=== PATIENT | female | born 1990 | race Two or more races ===

== ENCOUNTER → 2016-10-29 | Outpatient (CLI) | payer OTHER ==
--- NOTE | 2016-10-29 17:12 | REP ---
Clinical: Trauma. Technique: AP, lateral, bilateral oblique views 1st digit. Findings: The osseous structures and joint spaces are intact and normal. There is no evidence for acute fracture or dislocation. Surrounding soft tissues are unremarkable. No subcutaneous emphysema or radiodense foreign body. Impression: Normal examination. No acute fracture or dislocation. Signed by Tyshawn Saucedo MD 10/29/2016 05:03 P
== END ==
LOC: M WUC 16:50
PROVIDERS: ATTEND Physician Assistant
DX: S60.011A Contusion of right thumb without damage to nail, initial encounter (principal); X58.XXXA Exposure to other specified factors, initial encounter; Y92.89 Other specified places as the place of occurrence of the external cause; Y93.89 Activity, other specified; Y99.8 Other external cause status

== ENCOUNTER → 2018-03-10 | Outpatient (CLI) | payer OTHER ==
[2018-03-10 13:03] LABS: BASO % 0.2 % (0.0-1.0); EOS # 0.1 10^3/uL (0.0-0.50); EOS % 1.3 % (0.0-3.0); HEMATOCRIT 43.3 % (36.0-47.0); HEMOGLOBIN 13.7 g/dl (12.0-15.5); IMMATURE GRANULOCYTE % 0.4 % (0-3.0); LYMPH # 1.4 10^3/uL (1.5-6.5); LYMPH % 26.6 % (24.0-44.0); MEAN CORPUSCULAR HEMOGLOBIN 26.2 pg (27.0-33.0); MEAN CORPUSCULAR HGB CONC 31.6 g/dl (32.0-36.5); MONO # 0.5 10^3/uL (0.0-0.8); MONO % 8.4 % (0.0-5.0); NEUTROPHILS # 3.4 10^3/uL (1.8-7.7); NEUTROPHILS % 63.1 % (36.0-66.0); PLATELET COUNT, AUTOMATED 252 10^3/uL (150-450); RED BLOOD COUNT 5.22 10^6/uL (4.00-5.40); RED CELL DISTRIBUTION WIDTH 14.8 % (11.5-14.5); WHITE BLOOD COUNT 5.3 10^3/uL (4.0-10.0)
[2018-03-10 13:37] LABS: TOTAL 25(OH) VITAMIN D 10.1 NG/ML (30.0-100.0)
[2018-03-10 13:39] LABS: ALBUMIN 3.7 GM/DL (3.2-5.2); ALKALINE PHOSPHATASE 55 U/L (45-117); ALT/SGPT 35 U/L (12-78); ANION GAP 6 MEQ/L (8-16); AST/SGOT 22 U/L (7-37); BILIRUBIN,TOTAL 0.4 MG/DL (0.2-1.0); BLOOD UREA NITROGEN 11 MG/DL (7-18); CARBON DIOXIDE LEVEL 28 MEQ/L (21-32); CHLORIDE LEVEL 112 MEQ/L (98-107); CHOLESTEROL LEVEL 158 MG/DL (<200); CHOLESTEROL RISK RATIO 4.051 (<5); CREATININE FOR GFR 0.87 MG/DL (0.55-1.30); GLOMERULAR FILTRATION RATE > 60.0 (>60); GLUCOSE, FASTING 88 MG/DL (70-100); HDL CHOLESTEROL 39 MG/DL (>40); LDL CHOLESTEROL 100.6 MG/DL (<100); NON-HDL-C 119 MG/DL; POTASSIUM SERUM 4.1 MEQ/L (3.5-5.1); SODIUM LEVEL 146 MEQ/L (136-145); TOTAL PROTEIN 7.4 GM/DL (6.4-8.2); TRIGLYCERIDES LEVEL 92 MG/DL (<150)
[2018-03-10 14:11] LABS: ESTIMATED AVERAGE GLUCOSE 100 MG/DL (60-110); HEMOGLOBIN A1c 5.1 %
== END ==
LOC: M WUC 09:46
DX: Z13.228 Encounter for screening for other metabolic disorders (principal)
CPT/HCPCS: 84443

== ENCOUNTER → 2018-04-15 | Outpatient (CLI) | payer OTHER ==
[2018-04-17 14:14] LABS: TESTOSTERONE FREE (DIRECT) 1.5 pg/mL (0.0-4.2)
== END ==
LOC: M WUC 16:36
DX: E28.2 Polycystic ovarian syndrome (principal)
CPT/HCPCS: 83525

== ENCOUNTER → 2018-06-05 | Outpatient (REF) | payer OTHER ==
[2018-06-05 17:52] LABS: HCG, SERUM QUANTITATIVE 42235 MIU/ML
== END ==
LOC: M SFHCPLAZ 15:42
DX: Z32.00 Encounter for pregnancy test, result unknown (principal)
CPT/HCPCS: 84702

== ENCOUNTER → 2018-07-05 | Outpatient (CLI) | payer OTHER ==
[2018-07-05 17:23] LABS: BASO % 0.1 % (0.0-1.0); EOS # 0.1 10^3/uL (0.0-0.50); EOS % 0.8 % (0.0-3.0); HEMOGLOBIN 12.1 g/dl (12.0-15.5); IMMATURE GRANULOCYTE % 0.8 % (0-3.0); LYMPH # 1.5 10^3/uL (1.5-6.5); LYMPH % 20.2 % (24.0-44.0); MEAN CORPUSCULAR HEMOGLOBIN 27.1 pg (27.0-33.0); MEAN CORPUSCULAR HGB CONC 31.8 g/dl (32.0-36.5); MEAN CORPUSCULAR VOLUME 85.2 fl (80.0-96.0); MONO # 0.5 10^3/uL (0.0-0.8); NEUTROPHILS # 5.4 10^3/uL (1.8-7.7); NEUTROPHILS % 71.1 % (36.0-66.0); PLATELET COUNT, AUTOMATED 215 10^3/uL (150-450); RED BLOOD COUNT 4.46 10^6/uL (4.00-5.40); RED CELL DISTRIBUTION WIDTH 14.6 % (11.5-14.5); WHITE BLOOD COUNT 7.6 10^3/uL (4.0-10.0)
[2018-07-05 17:42] LABS: TOTAL PROTEIN,RANDOM URINE 9.8 MG/DL (0.0-12.0)
[2018-07-05 17:47] LABS: ALT/SGPT 26 U/L (12-78); AST/SGOT 12 U/L (7-37); BILIRUBIN,TOTAL 0.2 MG/DL (0.2-1.0); CREATININE FOR GFR 0.74 MG/DL (0.55-1.30); GLOMERULAR FILTRATION RATE > 60.0 (>60); GLUCOSE CHALLENGE TEST 1 HOUR 101 MG/DL (LESS THAN 140); LDH LACTATE DEHYDROGENASE 179 U/L (84-246); URIC ACID 4.2 MG/DL (2.6-6.0)
[2018-07-05 19:06] LABS: CHLAMYDIA DNA AMPLIFICATION NEGATIVE (NEGATIVE); GC DNA AMPLIFICATION NEGATIVE (NEGATIVE)
[2018-07-06 14:11] LABS: HBsAg Prenatal NEGATIVE (NEGATIVE); RUBELLA IgG QUALITATIVE IMMUNE (IMMUNE)
[2018-07-06 14:39] LABS: HEPATITIS C VIRUS ABY INDEX 0.1 INDEX (<0.8)
[2018-07-06 14:40] LABS: HIV 1&2 SCREEN CENTAUR NEGATIVE (NEGATIVE)
== END ==
LOC: M WUC 15:03
DX: Z34.81 Encounter for supervision of other normal pregnancy, first trimester (principal); Z3A.00 Weeks of gestation of pregnancy not specified
CPT/HCPCS: 84460

== ENCOUNTER → 2018-09-01 | Outpatient (CLI) | payer OTHER ==
--- NOTE | 2018-09-01 08:07 | REP ---
Clinical: Anatomical evaluation. Comparison: None . Findings: Examination demonstrates a single live intrauterine in cephalic presentation. motion is identified by technologist. Placenta is noted posterior and grade 1 without evidence for placenta previa or abruption. Amniotic fluid volume is normal. Cervix measures 5.0 cm in length and appears closed. No evidence for nuchal cord. Gestational age by LMP 20 weeks 5 days with ALYSON 01/14/2019 . Gestational age by current measurements 20 weeks 6 days with ALYSON 01/13/2019 . FHR equals 150 beats per minute. BPD 4.9 cm 20 weeks 5 days HC 18.1 cm 20 weeks 4 days AC 15.3 cm 20 weeks 3 days FL 3.6 cm 21 weeks 2 days HL 3.4 cm 21 weeks 3 days HC/AC ratio 1.19 Estimated weight 379 grams ( 50th percentile). Anatomical assessment demonstrates normal structures including cranium, choroid plexus, cavum, cerebellum/posterior fossa, diaphragm, stomach, cord insertion, bladder, and extremities. Limited evaluation of the facial features, lungs, heart/ventricular outflow tracts, three-vessel cord, kidneys, and spine due to maternal body habitus and lie. Impression: 1. Single live intrauterine in cephalic presentation demonstrating appropriate interval growth. 2. Anatomical limitations as scrubbed above may warrant reevaluation and follow-up. No gross abnormality identified. Electronically Signed by Tyshawn Saucedo MD 09/01/2018 07:59 A
== END ==
LOC: M RAD 07:00
PROVIDERS: ATTEND Advanced Practice Midwife
DX: Z34.82 Encounter for supervision of other normal pregnancy, second trimester (principal); Z36.89 Encounter for other specified antenatal screening; Z3A.20 20 weeks gestation of pregnancy

== ENCOUNTER → 2018-09-23 | Outpatient (CLI) | payer OTHER ==
--- NOTE | 2018-09-24 04:58 | REP ---
Clinical: Anatomical evaluation. Comparison: 09/01/2018 . Findings: Examination demonstrates a single live intrauterine in cephalic presentation. motion is identified by technologist. Placenta is noted posterior and grade grade 1 without evidence for placenta previa or abruption. Amniotic fluid volume is normal. Cervix measures 5.9 cm in length and appears closed. No evidence for nuchal cord. Gestational age by LMP 39-grof-9-day with ALYSON is 01/14/2019 . Gestational age by current measurements 24 weeks 4-day with ALYSON is 01/09/2019 . FHR equals 146 beats per minute. Estimated weight 745 grams ( 74th percentile). Anatomical assessment demonstrates normal structures including cranium, choroid plexus, cavum, cerebellum, facial features, lungs, left ventricular outflow tract, diaphragm, stomach, cord insertion/three-vessel cord, kidneys/bladder, spine, and extremities. Impression: Single live intrauterine in cephalic presentation demonstrating appropriate interval growth. Suboptimal evaluation of the four-chamber heart again noted. Remainder of the anatomical assessment is within normal limits. Electronically Signed by Tyshawn Saucedo MD 09/24/2018 04:49 A
== END ==
LOC: M RAD 14:52
PROVIDERS: ATTEND Specialist
DX: O99.212 Obesity complicating pregnancy, second trimester (principal); E66.9 Obesity, unspecified; Z3A.23 23 weeks gestation of pregnancy; Z36.2 Encounter for other antenatal screening follow-up

== ENCOUNTER → 2018-10-30 | Outpatient (CLI) | payer OTHER ==
--- NOTE | 2018-10-30 15:00 | REP ---
OB SONOGRAPHY: HISTORY: Supervision of followup anatomy. Four-chamber heart. FINDINGS: Scanning through the gravid uterus demonstrates a viable single intrauterine gestation in a cephalic lie. motion is observed and heart rate is recorded at 146 beats per minute. A posterior grade 1 placenta is seen without evidence of previa. Amniotic fluid is subjectively normal. Closed cervical length is measured 4.3 cm viewed transabdominally. No extrauterine abnormality is observed. There has been appropriate interval growth. No anomaly is seen. The following anatomic structures are identified and felt to be sonographically unremarkable: cranium, choroid plexus, cavum, cerebellum posterior fossa, lungs, four-chamber heart with left ventricular outflow tract view, diaphragm, left-sided stomach, abdominal wall cord insertion, three-vessel umbilical cord, kidneys and bladder, lower extremities. Biometry Chart: BPD 7.7 cm = 31 weeks 0 days HC 28.4 cm = 31 weeks 1 day AC 25.8 cm = 30 weeks 0 days FL 5.7 cm = 30 weeks 0 days HL 5.1 cm = 29 weeks 6 days HC/AC ratio normal 1.1. Cephalic index normal 0.76. Estimated weight 1521 grams, 3 pounds 5 ounces, 67th percentile for 29 weeks 1 day. Amniotic fluid index 24.1 cm. SD ratio normal 2.50. IMPRESSION: Viable single intrauterine gestation at 30 weeks 1 day by today's composite sonographic criteria. Expected gestational age estimate based on prior sonography is 29 weeks 2 days. ALYSON by prior sonography January 13, 2019. In conjunction with the prior study, anatomic survey is felt to be complete. Electronically Signed by Anton Guerrero MD 10/30/2018 03:34 P
== END ==
LOC: M RAD 07:30
PROVIDERS: ATTEND Specialist
DX: O99.212 Obesity complicating pregnancy, second trimester (principal); Z3A.30 30 weeks gestation of pregnancy

== ENCOUNTER → 2018-11-03 | Outpatient (CLI) | payer OTHER ==
[2018-11-03 19:46] LABS: BASO % 0.1 % (0.0-1.0); EOS # 0.1 10^3/uL (0.0-0.50); EOS % 0.6 % (0.0-3.0); HEMATOCRIT 34.3 % (36.0-47.0); HEMOGLOBIN 10.7 g/dl (12.0-15.5); LYMPH # 1.2 10^3/uL (1.5-6.5); LYMPH % 15.4 % (24.0-44.0); MEAN CORPUSCULAR HEMOGLOBIN 25.2 pg (27.0-33.0); MEAN CORPUSCULAR HGB CONC 31.2 g/dl (32.0-36.5); MEAN CORPUSCULAR VOLUME 80.9 fl (80.0-96.0); MONO # 0.7 10^3/uL (0.0-0.8); MONO % 8.2 % (0.0-5.0); NEUTROPHILS % 74.6 % (36.0-66.0); PLATELET COUNT, AUTOMATED 239 10^3/uL (150-450); RED BLOOD COUNT 4.24 10^6/uL (4.00-5.40); WHITE BLOOD COUNT 8.1 10^3/uL (4.0-10.0)
== END ==
LOC: M WUC 14:51
PROVIDERS: ATTEND Specialist
DX: O99.212 Obesity complicating pregnancy, second trimester (principal); Z3A.00 Weeks of gestation of pregnancy not specified

== ENCOUNTER → 2018-12-04 | Outpatient (CLI) | payer OTHER ==
[2018-12-04 13:40] LABS: BASO % 0.1 % (0.0-1.0); EOS % 0.4 % (0.0-3.0); HEMATOCRIT 37.4 % (36.0-47.0); HEMOGLOBIN 11.4 g/dl (12.0-15.5); LYMPH # 1.2 10^3/uL (1.5-6.5); MEAN CORPUSCULAR HEMOGLOBIN 24.1 pg (27.0-33.0); MEAN CORPUSCULAR HGB CONC 30.5 g/dl (32.0-36.5); MEAN CORPUSCULAR VOLUME 78.9 fl (80.0-96.0); MONO # 0.8 10^3/uL (0.0-0.8); MONO % 9.7 % (0.0-5.0); NEUTROPHILS # 5.6 10^3/uL (1.8-7.7); NEUTROPHILS % 72.9 % (36.0-66.0); PLATELET COUNT, AUTOMATED 235 10^3/uL (150-450); RED BLOOD COUNT 4.74 10^6/uL (4.00-5.40); WHITE BLOOD COUNT 7.7 10^3/uL (4.0-10.0)
[2018-12-04 13:41] LABS: ALT/SGPT 15 U/L (12-78); BILIRUBIN,TOTAL 0.4 MG/DL (0.2-1.0); CREATININE FOR GFR 0.53 MG/DL (0.55-1.30); GLOMERULAR FILTRATION RATE > 60.0 (>60); LDH LACTATE DEHYDROGENASE 155 U/L (84-246); URIC ACID 3.8 MG/DL (2.6-6.0)
[2018-12-04 14:33] LABS: CREATININE,RANDOM URINE 53.9 MG/DL; TOTAL PROTEIN,RANDOM URINE 9.1 MG/DL (0.0-12.0)
== END ==
LOC: M SMT 09:23
PROVIDERS: ATTEND Advanced Practice Midwife
DX: O99.213 Obesity complicating pregnancy, third trimester (principal); X58.XXXA Exposure to other specified factors, initial encounter; R03.0 Elevated blood-pressure reading, without diagnosis of hypertension

== ENCOUNTER → 2018-12-09 | Outpatient (CLI) | payer OTHER ==
--- NOTE | 2018-12-09 09:21 | REP ---
Clinical: Hypertension. well-being. Comparison: 10/30/2018. Findings: Examination demonstrates a single live intrauterine in cephalic presentation. motion is identified by technologist. Placenta is noted posterior and grade grade 1 without evidence for placenta previa or abruption. Amniotic fluid volume is normal. Cervix measures 4.6 cm in length and appears closed. No evidence for nuchal cord. Gestational age by LMP 34 weeks 6 days with ALYSON 01/13/2019 . Gestational age by current measurements 36 weeks 2 days with ALYSON 01/04/2019 . FHR equals 126 beats per minute. BPD 9.5 cm 39 weeks 0 days (greater than 95th percentile) HC 32.8 cm 37 weeks 2 days (90th percentile) AC 33.8 cm 37 weeks 5 days (92nd percentile) FL 6.7 cm 34 weeks 3 days HL 5.7 cm 33 weeks 1 day HC/AC ratio 0.97 Estimated weight 3095 grams ( 88th percentile based on age by LMP ). Amniotic fluid index: 19.1 cm (7.9 - 24.9) Umbilical cord SD ratio: 2.60 (2.00 - 3.00). Impression: 1. Single live advanced gestation in cephalic presentation. 2. Estimated weight within normal range. Biometrical measurements as described above. Electronically Signed by Tyshawn Saucedo MD 12/09/2018 09:13 A
== END ==
LOC: M RAD 07:05
PROVIDERS: ATTEND Advanced Practice Midwife
DX: O13.3 Gestational [pregnancy-induced] hypertension without significant proteinuria, third trimester (principal); Z3A.36 36 weeks gestation of pregnancy

== ENCOUNTER → 2018-12-31 | Outpatient (REF) | payer OTHER | LOC: M LAB REF 17:09 | PROVIDERS: ATTEND Specialist | DX: O09.213 Supervision of pregnancy with history of pre-term labor, third trimester (principal) ==

== ENCOUNTER 2019-01-12 05:34 | Inpatient (IN) | payer OTHER ==
[~2019-01-12] VITALS: Ht 157.5 cm; Wt 133.3 kg
[2019-01-12] MEDS ORDERED: BICITRA 30ML SOLN UDC PO ONE (06:00)
[2019-01-12] MEDS ORDERED: LR 800 ML IV ONE (06:00)
[2019-01-12 06:45] LABS: HEMATOCRIT 37.1 % (36.0-47.0); HEMOGLOBIN 11.6 g/dl (12.0-15.5); MEAN CORPUSCULAR HGB CONC 31.3 g/dl (32.0-36.5); MEAN CORPUSCULAR VOLUME 76.8 fl (80.0-96.0); PLATELET COUNT, AUTOMATED 283 10^3/uL (150-450); RED BLOOD COUNT 4.83 10^6/uL (4.00-5.40); WHITE BLOOD COUNT 8.3 10^3/uL (4.0-10.0)
[2019-01-12] MEDS ORDERED: LR 1,000 ML IV SCH (07:00)
[2019-01-12] MEDS ORDERED: OXYC1TAB23 PO (07:19)
[2019-01-12] MEDS ORDERED: IBUP-1022 PO (07:20)
[2019-01-12] MEDS ORDERED: NALBUPHINE HCL 10 MG/ML AMP (J2300) IV PRN ×2 (07:41→09:30)
[2019-01-12] MEDS ORDERED: NALOXONE INJ 0.4 MG/1 ML VIAL (J2310) IV PRN ×2 (07:41)
[2019-01-12] MEDS ORDERED: METOCLOPRAMIDE INJ 10MG/2ML VIAL (J2765) IV PRN (07:41)
[2019-01-12] MEDS ORDERED: ONDANSETRON 4MG/2ML VIAL (J2405) IV PRN ×3 (07:41→09:30)
[2019-01-12] MEDS ORDERED: diphenhydrAMINE INJ 50MG/ML VIAL (J1200) IV PRN ×2 (07:41→09:30)
[2019-01-12] MEDS ORDERED: MORPHINE PRES-FREE INJ 10 MG/10 ML VIAL (J2274) As Ordered ONE (07:51)
[2019-01-12] MEDS ORDERED: OXYTOCIN INJ 10 UNITS/ML VIAL (J2590) As Ordered ONE (07:51)
[2019-01-12] MEDS ORDERED: PHENYLephrine HCL 500 MCG/5 ML (100MCG/ML) SYRINGE (J2370) As Ordered ONE (07:51)
[2019-01-12] MEDS ORDERED: ONDANSETRON 4MG/2ML VIAL (J2405) As Ordered ONE (07:51)
[2019-01-12] MEDS ORDERED: OXYTOCIN DRIP 30 UNITS in APPROPRIATE DILUENT 1 EA IV SCH (08:40)
[2019-01-12] MEDS ORDERED: PROMETHAZINE 25 MG TAB PO PRN (08:45)
[2019-01-12] MEDS ORDERED: MEASLES,MUMPS,RUBELLA VACCINE INJ (MMR-II) (90707) SC SCH (08:45)
[2019-01-12] MEDS ORDERED: RHOGAM 300 MCG (1500 IU) INJ (J2790) IM SCH (08:45)
[2019-01-12] MEDS ORDERED: PERCOCET 5MG/325MG TAB PO PRN ×2 (08:45)
[2019-01-12] MEDS: PRENATAL VITAMINS CHEWABLE TABLET PO SCH (09:00)
[2019-01-12] MEDS: DOCUSATE SODIUM 100 MG CAP PO SCH (09:00)
[2019-01-12] MEDS ORDERED: OXYTOCIN 30 UNITS IN 0.9% NaCl 500ML IV BAG (J2590) As Ordered ONE (09:26)
[2019-01-12] MEDS ORDERED: MEPERIDINE INJ 25 MG/ML VIAL (J2175) IV PRN (09:30)
[2019-01-12] MEDS ORDERED: KETOROLAC 30 MG/ML VIAL (J1885) IV PRN (09:30)
[2019-01-12] MEDS ORDERED: fentaNYL 100 MCG/2 ML INJECTION (J3010) IV PRN (09:30)
--- NOTE | 2019-01-12 09:32 | RO ---
DATE OF PROCEDURE: 01/12/2019 PREPROCEDURE DIAGNOSIS: 37 and 4, chronic hypertension, prior section times one. POSTPROCEDURE DIAGNOSIS: 37 and 4, chronic hypertension, prior section times one. PROCEDURE: Repeat low transverse section. SURGEON: Dr. Kalyan Walker CONTRACTS LAW PROFESSOR: Dr. Justo Shea ANESTHESIA: Spinal. FINDINGS: 4100 gram, 9 pound 1 ounce, male , Apgars 8 and 9, nuchal cord times one, polyhydramnios present. Normal uterus, fallopian tubes and ovaries. Omental adhesions to the anterior abdominal wall. DESCRIPTION OF PROCEDURE: The patient was taken to the operating room where spinal anesthesia was induced. She was prepped and draped in sterile fashion in the supine position. A Ridley catheter was placed. A Pfannenstiel skin incision was made with the scalpel and carried through to the fascia. The fascia was nicked and extended. The fascia was dissected off the rectus muscles. The peritoneal cavity was entered. A bladder flap was created. A curvilinear incision was made in the lower uterine segment until clear fluid was noted. This was extended manually. The infant was delivered from the vertex position with a single use of the vacuum extractor. Nuchal cord times one was reduced. The shoulders delivered with ease. The cord was doubly clamped and cut. The was handed off to the awaiting nurses. The placenta was expressed. The uterus was exteriorized and cleared of clots and debris. The uterine incision was closed with #0 Vicryl in a running locked fashion. A second imbricating layer of #0 Vicryl was placed. The uterus was placed back in the abdominal cavity. Omental adhesions to the anterior abdominal wall were taken down sharply. The peritoneum was closed with #2-0 Vicryl in a running fashion. The fascia was closed with #0 Vicryl in a running fashion. The deep layer was closed with #2-0 chromic. The skin was closed with #4-0 Monocryl subcuticular sutures. Sponge, needle and instrument counts were correct. Dr. Justo Shea assisted in all aspects of the procedure from beginning to end. He helped create each layer of the incision, including the hysterotomy, and he subsequently helped with expulsion of the fetus and closure of all layers.
[2019-01-12 11:20] VITALS: BP 121/71
[2019-01-12] MEDS ORDERED: KETOROLAC 30 MG/ML VIAL (J1885) IV SCH (11:30)
[2019-01-12 11:50] VITALS: BP 122/75
[2019-01-12] MEDS: KETOROLAC 30 MG/ML VIAL (J1885) IV SCH ×2 (12:11→19:10)
[2019-01-12 12:50] VITALS: BP 124/61
[2019-01-12 13:50] VITALS: BP 112/61
[2019-01-12 17:59] VITALS: BP 119/72
[2019-01-12 22:00] VITALS: BP 115/55
[2019-01-13] MEDS: KETOROLAC 30 MG/ML VIAL (J1885) IV SCH ×2 (00:40→05:49)
[2019-01-13] MEDS: DOCUSATE SODIUM 100 MG CAP PO SCH ×3 (00:40→22:12)
[2019-01-13 02:00] VITALS: BP 111/53
[2019-01-13 06:00] VITALS: BP 113/55
[2019-01-13 06:08] LABS: HEMATOCRIT 30.8 % (36.0-47.0); MEAN CORPUSCULAR HEMOGLOBIN 23.6 pg (27.0-33.0); MEAN CORPUSCULAR HGB CONC 30.8 g/dl (32.0-36.5); MEAN CORPUSCULAR VOLUME 76.6 fl (80.0-96.0); PLATELET COUNT, AUTOMATED 224 10^3/uL (150-450); RED BLOOD COUNT 4.02 10^6/uL (4.00-5.40); WHITE BLOOD COUNT 9.1 10^3/uL (4.0-10.0)
[2019-01-13 06:18] LABS: HEMOGLOBIN 9.5 g/dl (12.0-15.5)
--- NOTE | 2019-01-13 07:48 | NUR ---
Postoperative Day 1 Status post repeat low transverse section, uncomplicated. Subjective Pain is well controlled. Lochia is decreasing and minimal. Voiding spontaneously. Tolerating a regular diet. Ambulating without any assistance. Denies any subjective fever, chills, nausea, vomiting, headache, visual changes, shortness of breath, chest pain. Objective Vitals: Normotensive, normal heart rate, afebrile, adequate urine output. Heart: regular, rate, and rhythm. no murmurs/gallops/rubs Lungs: clear to auscultation bilaterally, no wheezes/crackles/rales/ronchi Abd: soft, nontender, nondistended, uterine fundus is 2cm below umbilicus and firm Incision: clean, dry, intact Ext: no significant edema, nontender, negative Gricelda's bilaterally. Assessment/Plan: Postoperative day 1 status post repeat low transverse section. Recovering well. Hemodynamically stable, afebrile, good pain control. -Routine care -Discharge to home tomorrow -Routine infectious, fever, pain, and bleeding precautions reviewed -Incision/wound care precautions reviewed. Daysi DriscollO., F.A.C.O.G.
[2019-01-13] MEDS: PRENATAL VITAMINS CHEWABLE TABLET PO SCH (09:06)
[2019-01-13 10:07] VITALS: BP 119/73
[2019-01-13 14:00] VITALS: BP 125/72
[2019-01-13] MEDS: IBUPROFEN 800 MG TAB PO SCH ×2 (14:18→22:12)
[2019-01-13 18:00] VITALS: BP 120/68
[2019-01-13 22:13] VITALS: BP 116/57
[2019-01-14 02:12] VITALS: BP 117/68
[2019-01-14] MEDS: IBUPROFEN 800 MG TAB PO SCH (05:52)
[2019-01-14 06:27] VITALS: BP 121/78
--- NOTE | 2019-01-14 07:35 | DSES ---
DATE OF ADMISSION: 01/12/2019 DATE OF DISCHARGE: 01/14/2019 DISCHARGE DIAGNOSES: Repeat section at term. Chronic hypertension, stable condition postop day 2. SURGEON: Dr. Kalyan Walker MOLDING AND TRIM INSTALLER: Dr. Justo Shea HISTORY: Eloise is a 28-year-old 2, para 1-1-0-2 now who was admitted for planned repeat section at 37-4/7 weeks gestation due to chronic hypertension and prior section. Her surgery was uncomplicated. She delivered a live male weighing 4100 grams, 9 pounds 1 ounce, scores of 8 and 9. Estimated blood loss 600 mL. Postoperative course has been uncomplicated. She has been out of bed for self care, jose care and infant care. Her pain has been well managed with p.o. pain medications. She is voiding without difficulty, tolerating p.o. fluids and a regular diet and passing flatus. OBJECTIVE: Temperature 98, pulse 101, respirations 16, blood pressure is 121/78. 01/12/2019 CBC hemoglobin 11.6, hematocrit 37.1, platelets 283. Postoperative CBC on 01/13/2019 hemoglobin 9.5, hematocrit 30.8, platelets 224. Breasts: Soft, nontender. Abdomen: Fundus firm at umbilicus. Incision dressing is intact. There is no drainage noted. Perineum is intact. Lochia rubra scant. PLAN: Discharge the patient home today. She is to follow up at [facility] for a two week incision check and an eight week visit. Medications for pain have been E-prescribed by Dr. Kalyan Walker to the patient's pharmacy; ibuprofen 800 mg p.o. q.8 h p.r.n. for pain as well as Percocet 5/325 1-2 tablets p.o. q.6 h for pain p.r.n. I did review discharge instructions with the patient that include breast care, incision care, jose care, pelvic rest, activity and lifting restrictions, access to care and other danger signs in which to report to her provider. The patient has had all her questions answered and she desires to be discharged home today.
[2019-01-14] MEDS: DOCUSATE SODIUM 100 MG CAP PO SCH (08:39)
[2019-01-14] MEDS: PRENATAL VITAMINS CHEWABLE TABLET PO SCH (08:39)
== END 2019-01-14 12:40 | disposition home or self-care (01) | DRG 540 ==
LOC: M LDI 05:34 → M OBS 11:14
PROVIDERS: ADMIT Specialist; ATTEND Specialist
PROC: 10D00Z1 Extraction of Products of Conception, Low, Open Approach (ICD-10-PCS; principal; 2019-01-12 07:30)
DX: O10.02 Pre-existing essential hypertension complicating childbirth (principal); O40.3XX0 Polyhydramnios, third trimester, not applicable or unspecified; O34.211 Maternal care for low transverse scar from previous cesarean delivery; Z3A.37 37 weeks gestation of pregnancy; Z37.0 Single live birth; O69.81X0 Labor and delivery complicated by cord around neck, without compression, not applicable or unspecified

== ENCOUNTER → 2020-09-21 | Outpatient (CLI) | payer OTHER ==
[~2020-09-21] MED LIST: IBUP-1022 PO; OXYC1TAB23 PO
[2020-09-21 19:25] LABS: BASO % 0.2 % (0.0-1.0); EOS # 0.1 10^3/uL (0.0-0.5); EOS % 0.9 % (0.0-3.0); HEMATOCRIT 38.1 % (36.0-47.0); HEMOGLOBIN 11.5 g/dl (12.0-15.5); MEAN CORPUSCULAR HEMOGLOBIN 24.6 pg (27.0-33.0); MEAN CORPUSCULAR HGB CONC 30.2 g/dl (32.0-36.5); MEAN CORPUSCULAR VOLUME 81.4 fl (80.0-96.0); MONO # 0.7 10^3/uL (0.0-0.8); MONO % 7.3 % (2.0-8.0); NEUTROPHILS # 6.9 10^3/uL (1.5-8.5); NEUTROPHILS % 70.6 % (36.0-66.0); PLATELET COUNT, AUTOMATED 212 10^3/uL (150-450); RED BLOOD COUNT 4.68 10^6/uL (4.00-5.40); WHITE BLOOD COUNT 9.8 10^3/uL (4.0-10.0)
[2020-09-21 20:09] LABS: AMORPHOUS SEDIMENT SMALL (NEGATIVE); APPEARANCE, URINE HAZY (CLEAR); BACTERIA, URINE AUTO 1+ (NEGATIVE); BILIRUBIN, URINE AUTO NEGATIVE (NEGATIVE); BLOOD, URINE BLOOD NEGATIVE (NEGATIVE); COLOR, URINE YELLOW (YELLOW); GLUCOSE, URINE (UA) AUTO NEGATIVE (NEGATIVE); KETONE, URINE AUTO 1+ mg/dL (NEGATIVE); LEUKOCYTE ESTERASE, URINE AUTO NEGATIVE (NEGATIVE); MUCUS, URINE SMALL (NEGATIVE); NITRITE, URINE AUTO NEGATIVE (NEGATIVE); PROTEIN, URINE AUTO NEGATIVE (NEGATIVE); RBC, URINE AUTO 1 /HPF (0-3); SPECIFIC GRAVITY URINE AUTO 1.024 (1.002-1.035); SQUAMOUS EPITHELIAL CELL UR AU 6 /HPF (0-6); WBC, URINE AUTO 1 /HPF (0-3)
[2020-09-21 20:42] LABS: HEPATITIS B SURFACE ANTIGEN NEGATIVE (NEGATIVE); HEPATITIS C VIRUS ABY INDEX 0.1 INDEX (<0.8); HIV 1&2 SCREEN CENTAUR NEGATIVE (NEGATIVE)
[2020-09-21 21:37] LABS: CHLAMYDIA DNA AMPLIFICATION NEGATIVE (NEGATIVE); GC DNA AMPLIFICATION NEGATIVE (NEGATIVE)
== END ==
LOC: M LAB 17:01
PROVIDERS: ATTEND Specialist
DX: Z34.81 Encounter for supervision of other normal pregnancy, first trimester (principal); Z3A.00 Weeks of gestation of pregnancy not specified

== ENCOUNTER → 2020-09-22 | Outpatient (REF) | payer OTHER ==
[2020-09-22 18:04] LABS: TOTAL PROTEIN,RANDOM URINE 5.8 MG/DL (0.0-12.0)
== END ==
LOC: M SFHCPLAZ 16:44
PROVIDERS: ATTEND Advanced Practice Midwife
DX: O34.211 Maternal care for low transverse scar from previous cesarean delivery (principal); O99.212 Obesity complicating pregnancy, second trimester; Z87.59 Personal history of other complications of pregnancy, childbirth and the puerperium

== ENCOUNTER → 2020-09-29 | Outpatient (CLI) | payer OTHER ==
[2020-09-29 14:52] LABS: ALT/SGPT 17 U/L (12-78); BILIRUBIN,TOTAL 0.3 MG/DL (0.2-1.0); CREATININE FOR GFR 0.58 MG/DL (0.55-1.30); GLOMERULAR FILTRATION RATE > 60.0 (>60); GLUCOSE CHALLENGE TEST 1 HOUR 107 MG/DL (LESS THAN 140); LDH LACTATE DEHYDROGENASE 135 U/L (84-246); URIC ACID 3.6 MG/DL (2.6-6.0)
== END ==
LOC: M LAB 12:29
PROVIDERS: ATTEND Advanced Practice Midwife
DX: O34.211 Maternal care for low transverse scar from previous cesarean delivery (principal); O99.212 Obesity complicating pregnancy, second trimester; Z87.59 Personal history of other complications of pregnancy, childbirth and the puerperium; Z3A.00 Weeks of gestation of pregnancy not specified

== ENCOUNTER → 2020-10-24 | Outpatient (CLI) | payer OTHER ==
--- NOTE | 2020-10-24 19:22 | REP ---
INDICATION: ANATOMY. Maternal care due to low transverse uterine scar from previous delivery. For anatomy. COMPARISON: None. TECHNIQUE: Transabdominal obstetric sonography. FINDINGS: Scanning through the gravid uterus demonstrates a viable single intrauterine gestation in cephalic lie. motion is observed and heart rate is recorded at 163 beats per minute. A anterior placenta is seen, grade 0, without evidence of placenta previa. Closed cervical length is measured at 4.6 cm transabdominally. No extrauterine abnormality is observed. Amniotic fluid is subjectively normal. Exam quality is inhibited by patient body habitus.. No abnormality is observed. The following anatomic structures are identified and felt to be unremarkable: diaphragm, left-sided stomach, right and left kidney, urinary bladder, spine, upper and lower extremities, three-vessel cord. The following anatomic structures are less than optimally seen. cranium and intracranial anatomy. Four-chamber heart with left and right ventricular outflow tract views, and abdominal wall cord insertion.. Biometry chart: BPD 5.4 cm, 22 weeks 2 days Head circumference 20.4 cm, 22 weeks 4 days Abdominal circumference 19.6 cm, 24 weeks 2 days Femur length 4.2 cm, 23 weeks 5 days Humeral length 3.7 cm, 22 weeks 5 days HC AC ratio normal 1.04 Cephalic index normal 0.72 Estimated weight 627 g, 1 lb 6 oz, 67th percentile for 21 weeks 3 days IMPRESSION: Viable single intrauterine gestation at 23 weeks 1 days by today's composite sonographic criteria. ALYSON by today's sonography February 19, 2021. Expected gestational age estimate based on LMP 21 weeks 3 days, ALYSON by LMP March 03, 2021. Exam quality is limited due to patient body habitus.. anatomic survey is quite limited. <Electronically signed by Micah Guerrero > 10/24/20 [id number]
== END ==
LOC: M RAD 16:07
PROVIDERS: ATTEND Advanced Practice Midwife
DX: Z36.9 Encounter for antenatal screening, unspecified (principal); Z3A.23 23 weeks gestation of pregnancy

== ENCOUNTER → 2020-11-10 | Outpatient (CLI) | payer OTHER ==
--- NOTE | 2020-11-10 08:20 | REP ---
INDICATION: F/U ANATOMY COMPARISON: 10/24/2020 TECHNIQUE: Transabdominal obstetrical ultrasound with color Doppler evaluation. FINDINGS: Examination demonstrates a single live intrauterine in variable presentation. motion is identified by technologist. Placenta is noted anterior and clear grade 0 without evidence for placenta previa or abruption. Amniotic fluid volume is normal. Cervix measures 3.5 cm in length and appears closed.. Gestational age by LMP and 1st U/S 23 weeks 6 days with ALYSON 03/03/2021. Gestational age by current measurements 25 weeks 3 days with ALYSON 02/20/2021. FHR equals 155 beats per minute. Estimated weight 819 grams (greater than 97thpercentile based on age by 1st ultrasound). Anatomical assessment demonstrates normal structures including cranium, cerebral ventricles, choroid plexus, posterior fossa/cerebellum, facial features, heart/ventricular outflow tracts, stomach/abdominal wall, bladder and 3 vessel cord. IMPRESSION: 1. Single live intrauterine in variable presentation demonstrating greater than expected estimated weight. Correlation is required. 2. In conjunction with prior examination anatomical assessment is complete and normal. <Electronically signed by Tyshawn Saucedo > 11/10/20 [id number]
== END ==
LOC: M WHC 06:49
PROVIDERS: ATTEND Advanced Practice Midwife
DX: O34.211 Maternal care for low transverse scar from previous cesarean delivery (principal)

== ENCOUNTER → 2020-11-24 | Outpatient (REF) | payer OTHER | LOC: M SFHCWAGY 16:53 | PROVIDERS: ATTEND Advanced Practice Midwife | DX: O34.211 Maternal care for low transverse scar from previous cesarean delivery (principal); Z3A.00 Weeks of gestation of pregnancy not specified ==

== ENCOUNTER → 2020-12-08 | Outpatient (REF) | payer OTHER ==
[2020-12-08 18:01] LABS: HEMATOCRIT 34.8 % (36.0-47.0); HEMOGLOBIN 10.6 g/dl (12.0-15.5); MEAN CORPUSCULAR HEMOGLOBIN 24.1 pg (27.0-33.0); MEAN CORPUSCULAR HGB CONC 30.5 g/dl (32.0-36.5); MEAN CORPUSCULAR VOLUME 79.1 fl (80.0-96.0); PLATELET COUNT, AUTOMATED 236 10^3/uL (150-450); WHITE BLOOD COUNT 7.9 10^3/uL (4.0-10.0)
== END ==
LOC: M SFHCWAGY 17:06
PROVIDERS: ATTEND Advanced Practice Midwife
DX: O99.212 Obesity complicating pregnancy, second trimester (principal); Z3A.00 Weeks of gestation of pregnancy not specified

== ENCOUNTER → 2020-12-11 | Outpatient (REF) | payer OTHER | LOC: M SFHCWAGY 17:44 | PROVIDERS: ATTEND Advanced Practice Midwife | DX: O99.212 Obesity complicating pregnancy, second trimester (principal); E66.9 Obesity, unspecified; Z3A.00 Weeks of gestation of pregnancy not specified ==

== ENCOUNTER → 2020-12-29 | Outpatient (CLI) | payer OTHER ==
--- NOTE | 2020-12-29 08:43 | REP ---
INDICATION: BPP/GROWTH COMPARISON: 11/10/2020 TECHNIQUE: Transabdominal obstetrical ultrasound with color Doppler evaluation. FINDINGS: Examination demonstrates a single live intrauterine in breech presentation. motion is identified by technologist. Placenta is noted anterior and grade 1 without evidence for placenta previa or abruption. Amniotic fluid volume is normal. Cervix measures 4.1 cm in length and appears closed.. Gestational age by LMP and 1st U/S 30 weeks 6 days with ALYSON 03/03/2021. Gestational age by current measurements 33 weeks 4 days with ALYSON 02/12/2021. FHR equals 146 beats per minute. BPD: 8.1 cm at 32 weeks 5 days HC: 31.5 cm at 35 weeks 3 days AC: 29.8 cm at 33 weeks 5 days FL: 6.4 cm at 33 weeks 0 days HL: 5.7 cm at 32 weeks 6 days HC/AC: 1.06 Estimated weight 2234 grams (greater than 97th percentile based on age by 1st ultrasound; 52nd percentile based on age by current measurements) JIM: 9.9 cm (8.8-23.8) Biophysical profile score: 8/8. Umbilical artery SD ratio: 3.14 (1.91-3.99) IMPRESSION: Single live intrauterine in breech presentation. Greater than expected interval growth noted as above. Amniotic fluid index and biophysical profile score normal. <Electronically signed by Tyshawn Saucedo > 12/29/20 [id number]
== END ==
LOC: M RAD 07:27
PROVIDERS: ATTEND Obstetrics & Gynecology
DX: O34.211 Maternal care for low transverse scar from previous cesarean delivery (principal)

== ENCOUNTER → 2021-01-12 | Outpatient (CLI) | payer OTHER ==
--- NOTE | 2021-01-14 09:09 | REP ---
INDICATION: PREG, HTN COMPLICATIONS COMPARISON: 12/29/2020 TECHNIQUE: Transabdominal obstetrical ultrasound with color Doppler evaluation. FINDINGS: Examination demonstrates a single live intrauterine in cephalic presentation. motion is identified by technologist. Placenta is noted anterior and grade 1 without evidence for placenta previa or abruption. Amniotic fluid volume is normal. Cervix measures 3.2 cm in length and appears closed.. Selected gestational age: 35 weeks 4 days with ALYSON 02/12/2021. FHR equals 142 beats per minute. JIM: 13.5 cm (7.8-24.9) Biophysical profile score: 8/8 Umbilical artery SD ratio: 2.53 (1.66-3.55) IMPRESSION: Single live advanced gestation in cephalic presentation demonstrating appropriate amniotic fluid index and biophysical profile score. <Electronically signed by Tyshawn Saucedo > 01/14/21 0905
== END ==
LOC: M RAD 17:06
PROVIDERS: ATTEND Specialist
DX: O16.3 Unspecified maternal hypertension, third trimester (principal)

== ENCOUNTER → 2021-01-22 | Outpatient (CLI) | payer OTHER ==
--- NOTE | 2021-01-22 18:00 | REP ---
INDICATION: BPP. COMPARISON: Comparison study January 12, 2021.. TECHNIQUE: Transabdominal obstetric sonography. FINDINGS: Scanning through the gravid uterus demonstrates a single living intrauterine gestation in a cephalic lie. The placenta is anterior grade 2 without evidence of previa. Closed cervical length is measured at 3.0 cm. heart rate is recorded at 143 beats per minute. Amniotic fluid is subjectively normal. JIM is normal at 13.2 cm. Biophysical profile score is 8 out of a possible 8. SD ratio in the umbilical cord artery by Doppler is normal at 2.45. Biometry chart: BPD 8.8 cm, 35 weeks 4 days Head circumference 32.5 cm, 36 weeks 5 days Abdominal circumference 34.87 cm, 38 weeks 4 days Femur length 6.8 cm, 35 weeks 0 days Humeral length 6.1 cm, 35 weeks 4 days HC AC ratio normal 0.94 Cephalic index normal 0.75 Estimated weight 3145 g, 6 lb 14 oz, greater than 90th percentile for 34 weeks 2 days IMPRESSION: Viable single intrauterine gestation at 36 weeks 2 days by composite sonographic criteria. Expected gestational age estimate based on prior sonography is 34 weeks 2 days ALYSON by prior sonography March 03, 2021. <Electronically signed by Micah Guerrero > 01/22/21 [id number]
== END ==
LOC: M RAD 16:38
PROVIDERS: ATTEND Obstetrics & Gynecology
DX: O10.019 Pre-existing essential hypertension complicating pregnancy, unspecified trimester (principal)

== ENCOUNTER → 2021-01-29 | Outpatient (CLI) | payer OTHER ==
[~2021-01-29] MED LIST changes: +LABE100T4 PO
--- NOTE | 2021-01-29 15:07 | REP ---
INDICATION: GROWTH COMPARISON: 01/22/2021 TECHNIQUE: Transabdominal obstetrical ultrasound with color Doppler evaluation. FINDINGS: Examination demonstrates a single live intrauterine in cephalic presentation. motion is identified by technologist. Placenta is noted anterior and grade 1 without evidence for placenta previa or abruption. Amniotic fluid volume is normal. Selected gestational age: 35 weeks 2 days with ALYSON 03/03/2021. FHR equals 139 beats per minute. Biophysical profile score: 8/8 JIM: 15.1 cm (7.8-24.9) Umbilical artery SD ratio: 2.13 (1.67-3.57) IMPRESSION: Single live advanced gestation in cephalic presentation. Amniotic fluid index and biophysical profile score are normal. <Electronically signed by Tyshawn Saucedo > 01/29/21 [id number]
== END ==
LOC: M RAD 13:01
PROVIDERS: ATTEND Obstetrics & Gynecology
DX: O10.913 Unspecified pre-existing hypertension complicating pregnancy, third trimester (principal); Z3A.35 35 weeks gestation of pregnancy

== ENCOUNTER → 2021-01-30 | Outpatient (REF) | payer OTHER | LOC: M SFHCWAGY 09:58 | PROVIDERS: ATTEND Specialist | DX: Z34.83 Encounter for supervision of other normal pregnancy, third trimester (principal) ==

== ENCOUNTER → 2021-02-06 | Outpatient (CLI) | payer OTHER ==
[~2021-02-06] MED LIST changes: +IBUP80TA PO
--- NOTE | 2021-02-06 13:45 | REP ---
INDICATION: HYPERTENSION WITH PREG. COMPARISON: 01/29/2021. TECHNIQUE: Real-time sonographic evaluation of the gravid uterus performed. FINDINGS: Estimated gestational age is36 weeks 3 days, EDC 03/03/2021. Today's measurements indicate appropriate growth. Presentation: Cephalic Placenta anterior, grade 2, without evidence of placenta previa. heart rate is recorded at 160 beats per minute. Amniotic fluid is subjectively normal. JIM 12.5, normal range 7.6-24.7. Biophysical profile score 8/8. Biometry chart: BPD: 93 mm, 37 weeks 4 days, 67th percentile. HC: 333 mm, 38 weeks 0 days, 76th percentile AC: 339 mm, 37 weeks 6 days, 72nd percentile Femur length: 75 mm, 38 weeks 3 days, 79th percentile HC to AC ratio: 0.98, normal range 0.92-1.11. Estimated weight: 3358g, 89th percentile. SD ratio umbilical artery 2.08, normal 1.62-3.48. RI 0.52, normal 0.44-0.71. IMPRESSION: Viable single intrauterine gestation as above. <Electronically signed by Pavel Guzman > 02/06/21 [id number]
== END ==
LOC: M RAD 12:02
PROVIDERS: ATTEND Obstetrics & Gynecology
DX: O10.913 Unspecified pre-existing hypertension complicating pregnancy, third trimester (principal); Z3A.36 36 weeks gestation of pregnancy

== ENCOUNTER → 2021-02-07 | Outpatient (CLI) | payer OTHER | LOC: M LABSMTC 09:44 | PROVIDERS: ATTEND Anesthesiology | DX: Z01.812 Encounter for preprocedural laboratory examination (principal) ==

== ENCOUNTER 2021-02-12 05:09 | Inpatient (IN) | payer OTHER ==
[2021-02-12] VITALS (7 sets, daily range): BP systolic 113–133; BP diastolic 57–75
[~2021-02-12] VITALS: Ht 157.5 cm; Wt 136.7 kg
[~2021-02-12 05:09] MED LIST changes: -IBUP80TA PO
[2021-02-12] MEDS ORDERED: BICITRA 30ML SOLN UDC PO SCH (06:00)
[2021-02-12 06:30] LABS: HEMATOCRIT 35.2 % (36.0-47.0); HEMOGLOBIN 10.8 g/dl (12.0-15.5); MEAN CORPUSCULAR HEMOGLOBIN 22.7 pg (27.0-33.0); MEAN CORPUSCULAR HGB CONC 30.7 g/dl (32.0-36.5); MEAN CORPUSCULAR VOLUME 73.9 fl (80.0-96.0); PLATELET COUNT, AUTOMATED 229 10^3/uL (150-450); RED BLOOD COUNT 4.76 10^6/uL (4.00-5.40); WHITE BLOOD COUNT 7.1 10^3/uL (4.0-10.0)
[2021-02-12] MEDS ORDERED: OXYTOCIN INJ 10 UNITS/ML VIAL (J2590) As Ordered ONE (07:22)
[2021-02-12] MEDS ORDERED: ONDANSETRON 4MG/2ML VIAL As Ordered ONE (07:22)
[2021-02-12] MEDS ORDERED: dexameTHASONE 4 MG/ML 1ML VIAL (J1100 PER 1MG) As Ordered ONE (07:22)
[2021-02-12] MEDS ORDERED: KETOROLAC 60MG 2ML VIAL As Ordered ONE (07:22)
[2021-02-12] MEDS ORDERED: fentaNYL 100 MCG/2 ML INJECTION (J3010) As Ordered ONE (07:23)
[2021-02-12] MEDS ORDERED: MORPHINE PRES-FREE INJ 10 MG/10 ML VIAL (J2274) As Ordered ONE (07:23)
[2021-02-12] MEDS ORDERED: LACTATED RINGER'S 1000 ML IV STA (07:25)
[2021-02-12] MEDS ORDERED: LR 1,000 ML IV SCH (07:25)
[2021-02-12] MEDS ORDERED: ceFAZolin SOD 2 GM in IV 1 EA IV ONE (07:25)
--- NOTE | 2021-02-12 07:34 | HPEPDOC ---
Obstetrical History & Physical General Date of Admission Feb 12, 2021 at 05:09 History of Present Illness 30 yo female at 37 0/7 weeks gestation presents for a repeat and tubal ligation. No c omplaints. Information Provided By: Patient Care Care: Good Care Dating Final EDC by: LMP, 1st trimester (US) Antepartum Course Diagnos(e)s chronic hypertension on Labetalol 100 mg BID Past Medical History Past Medical History Medical History OB hx: C/S x 2 at term Med Hx: PCOS hirsutism Family History Significant Family History: No pertinent family hx Social History Marital Status: Family situation: Spouse/partner home Psychosocial History: No pertinent psych hx * Smoker: non-smoker Allergies Coded Allergies: No Known Allergies (Unverified , 01/29/21) Medications Scheduled Labetalol HCl (Labetalol HCl) 100 Mg Tablet, 100 MG PO BID Physical Examination Physical Examination GENERAL: Alert and oriented times three. BREAST: . ABDOMEN: Gravid and non-tender to touch. FETUS: Is vertex (VTX) by sterile vaginal examination (SVE), fetus is vertex (VTX) by Breezy. HEART RATE: Regular rate and rhythm. LUNGS: Clear to auscultation (CTA). EXTREMITIES: No edema. No clonus. Deep tendon reflexes (DTRs) + . Vital Signs/I&O Vital Signs Date Time Temp Pulse Resp B/P (MAP) Pulse Ox O2 Delivery O2 Flow Rate FiO2 02/12/21 05:53 100 113/59 (77) 02/12/21 05:50 97.8 18 Laboratory Data 24H LABS Laboratory Tests 2 02/12/21 01:26: Serology Scanned Report Hepatitis B Testing 02/12/21 06:18: Nucleated Red Blood Cells % (auto) 0.0 CBC/BMP Laboratory Tests 02/12/21 06:18 Vaginal Examination Dilation: None Effacement: 50% Station: -2 Cervical Consistency: Firm Presentation: Cephalic presentation Assessment Variability: Moderate Accelerations: Positive Decelerations: None Tocometer Contractions: No Assessment/Plan Assessment Pt is a 30-year-old (G)3 para (P)2 at 37+0 weeks Presents to Labor and Delivery for repeat and TL. Plan Admit and orient. Bessemer Regulator and consent. Plan TL at same time CHEY LEUNG MD Feb 12, 2021 07:34
[2021-02-12] MEDS: PRENATAL VITAMINS CHEWABLE TABLET PO SCH (09:00)
[2021-02-12] MEDS ORDERED: ePHEDrine SULFATE 25 MG/5 ML(5MG/ML) SYRINGE As Ordered ONE (09:01)
[2021-02-12] MEDS ORDERED: PHENYLephrine 500MCG 5ML (100MCG/ML) SYRINGE As Ordered ONE (09:04)
[2021-02-12] MEDS: OXYTOCIN DRIP 30 UNITS in IV 1 EA IV SCH ×2 (09:21→11:05)
[2021-02-12] MEDS: LR 1,000 ML IV SCH ×2 (09:21→11:05)
[2021-02-12] MEDS ORDERED: SIMETHICONE 80MG CHEW TAB PO PRN (09:25)
[2021-02-12] MEDS ORDERED: MEASLES,MUMPS,RUBELLA VACCINE INJ (MMR-II) (90707) SC SCH (09:25)
[2021-02-12] MEDS ORDERED: ONDANSETRON 4MG/2ML VIAL IV PRN ×2 (09:25→10:00)
[2021-02-12] MEDS ORDERED: RHOGAM 300 MCG (1500 IU) INJ (J2790) IM SCH (09:25)
[2021-02-12] MEDS ORDERED: PERCOCET 5MG/325MG TAB PO PRN ×3 (09:25→10:00)
--- NOTE | 2021-02-12 09:26 | ROOPDOC ---
[facility] Report Of Operation Report of Operation DATE OF PROCEDURE: 02/12/21 Report of operation Preoperative diagnosis:37 weeks, chronic hypertension, prior x 2 Postoperative diagnosis:same Procedure: Repeat low transverse section and bilateral tubal ligation. Surgeon: Chey Leung M.D. Asst.: Emily Smith CNM EBL: 500 ml. Urine output: 100 mL's. Findings: 8 lbs. 1 oz. female infant, Apgars 9 and 9 g normal uterus, fallopian tubes, ovaries. Operative summary: Patient taken to the operating room where spinal anesthesia was induced. She was prepped draped sterile fashion in the supine position. A Ridley catheter was placed. A Pfannenstiel skin incision was made with scalpel. Fascia was incised and extended bilaterally. The peritoneal cavity was entered. A Mobius retractor was placed. A bladder flap was created. A curvilinear in cision was made in lower uterine segment until Clear fluid was noted. The incision was extended manually. The was delivered from the vertex position without difficulty. Cord was doubly clamped and cut. The infant was handed to the awaiting nurses. The placenta was expressed. Uterus was closed with O-Vicryl in a running locked fashion. A second imbricating layer of Vicryl was placed. Attention was turned to the fallopian tubes. A Tiffani clamp was used to grasp the fallopian tubes at the midportion.. A window was created in the broad ligament free tie of 2-0 chromic was placed around the segment of tube on either side of the clamp. A Segment of tube was excised bilaterally and sent to pathology. Peritoneum was closed with 2-0 Vicryl a running fashion. Fascia was closed with 0 Vicryl in running fashion. Skin was closed 4-0 Monocryl subcuticular sutures. Sponge, instrument and needle counts were correct. Emily Smith CNM, assisted with all aspects of the procedure. She helped close each layer of the incision and deliver the fetus. CHEY LEUNG MD Feb 12, 2021 09:26
[2021-02-12] MEDS ORDERED: MEPERIDINE INJ 25 MG/ML VIAL (J2175) IV PRN (10:00)
[2021-02-12] MEDS ORDERED: fentaNYL 100 MCG/2 ML INJECTION (J3010) IV PRN (10:00)
[2021-02-12] MEDS ORDERED: SLF 3 ML SYR IV PRN (10:55)
[2021-02-12] MEDS ORDERED: OXYTOCIN 30 UNITS IN 0.9% NaCl 500ML IV BAG (J2590) As Ordered ONE (10:59)
[2021-02-12] MEDS: SLF 3 ML SYR IV SCH ×2 (13:47→21:43)
[2021-02-12] MEDS: KETOROLAC 30 MG/ML 1ML VIAL IV SCH ×2 (15:04→20:03)
[2021-02-13 02:00] VITALS: BP 101/52
[2021-02-13] MEDS: KETOROLAC 30 MG/ML 1ML VIAL IV SCH (02:29)
[2021-02-13] MEDS: SLF 3 ML SYR IV SCH (05:08)
[2021-02-13 06:00] VITALS: BP 106/56
[2021-02-13 08:26] LABS: HEMATOCRIT 29.1 % (36.0-47.0); HEMOGLOBIN 8.9 g/dl (12.0-15.5); MEAN CORPUSCULAR HEMOGLOBIN 22.9 pg (27.0-33.0); MEAN CORPUSCULAR HGB CONC 30.6 g/dl (32.0-36.5); PLATELET COUNT, AUTOMATED 203 10^3/uL (150-450); RED BLOOD COUNT 3.88 10^6/uL (4.00-5.40); WHITE BLOOD COUNT 9.1 10^3/uL (4.0-10.0)
[2021-02-13 10:00] VITALS: BP 137/63
[2021-02-13] MEDS: PRENATAL VITAMINS CHEWABLE TABLET PO SCH (10:58)
[2021-02-13] MEDS ORDERED: IBUPROFEN 800 MG TAB PO SCH (11:00)
[2021-02-13] MEDS ORDERED: OXYC1TAB23 PO (11:27)
[2021-02-13] MEDS ORDERED: IBUP80TA PO (11:27)
--- NOTE | 2021-02-13 11:34 | DS.PDOC ---
Discharge Summary General Date of Admission Feb 12, 2021 at 05:09 Date of Discharge 02/13/21 Discharge Summary PROCEDURES PERFORMED DURING STAY: [None]. ADMITTING DIAGNOSES: 1. [37 weeks, chronic hyperstension, prior . DISCHARGE DIAGNOSES: 1. same. COMPLICATIONS/CHIEF COMPLAINT: Previous Section Satisfied Parity. HISTORY OF PRESENT ILLNESS: 30 yo at 37 weeks presents for a repeat and tubal ligation. She has had two prior sections. HOSPITAL COURSE: 30 yo at 37 weeks presents for repeat section. H/o chronic hypertension on Labetalol. On 02/12/21 she had a repeat and BTL with no complications. Adequate return of bladder and bowel function. Baby did well. Pt stable for discharge post op day#1. DISCHARGE MEDICATIONS: Please see below. ALLERGIES: Please see below. PHYSICAL EXAMINATION ON DISCHARGE: VITAL SIGNS: Please see below. GENERAL: NAD HEENT: NCAT CARDIOVASCULAR EXAMINATION: RRR RESPIRATORY EXAMINATION: CTA ABDOMINAL EXAMINATION: NT, FF EXTREMITIES: NT LABORATORY DATA: Please see below. PROGNOSIS: good ACTIVITY: As tolerated. DIET: reg DISCHARGE PLAN:home DISCHARGE INSTRUCTIONS: 1. discharge home 2. instructions reviewed 3. Pain meds sent DISCHARGE CONDITION: Stable. TIME SPENT ON DISCHARGE: Greater than 10 minutes. Vital Signs/I&Os Vital Signs Date Time Temp Pulse Resp B/P (MAP) Pulse Ox O2 Delivery O2 Flow Rate FiO2 02/13/21 10:00 97.2 99 18 137/63 (87) 99 Room Air I&O- Last 24 Hours up to 6 AM 02/13/21 05:59 Intake Total 3540 ml Output Total 1625 ml Balance 1915 ml Laboratory Data Labs 24H Laboratory Tests 2 02/13/21 07:59: Nucleated Red Blood Cells % (auto) 0.0 CBC/BMP Laboratory Tests 02/13/21 07:59 Discharge Medications Scheduled Ibuprofen (Ibuprofen) 800 Mg Tablet, 800 MG PO Q8H Scheduled PRN Oxycodone HCl/Acetaminophen (Oxycodone-Acetaminophen 5-325) 1 Each Tablet, 1 TAB PO TIDP PRN for pain Allergies Coded Allergies: No Known Allergies (Unverified , 01/29/21) CHEY LEUNG MD Feb 13, 2021 11:34
== END 2021-02-13 14:00 | disposition home or self-care (01) | DRG 540 ==
LOC: M LDI 05:09 → M OBS 11:23
PROVIDERS: ADMIT Specialist; ATTEND Specialist
PROC: 0UB70ZZ Excision of Bilateral Fallopian Tubes, Open Approach (ICD-10-PCS; 2021-02-12)
PROC: 10D00Z1 Extraction of Products of Conception, Low, Open Approach (ICD-10-PCS; principal; 2021-02-12 07:30)
DX: O34.211 Maternal care for low transverse scar from previous cesarean delivery (principal); Z3A.37 37 weeks gestation of pregnancy; Z37.0 Single live birth; O10.02 Pre-existing essential hypertension complicating childbirth; Z30.2 Encounter for sterilization

== ENCOUNTER 2021-05-29 15:12 | Emergency (ER) | payer OTHER ==
[~2021-05-29] VITALS: Ht 157.5 cm; Wt 132.2 kg
[~2021-05-29 15:12] MED LIST changes: +IBUP80TA PO
--- OUTSIDE RECORDS SUMMARY | 2021-05-29 15:19 | CCD ---
Author Author [facility] Organization [facility] Address Unknown Phone Unavailable Care Team Providers Care Hand Tacker Name Role Phone Maren Pederson PA Unavailable Unavailable Feola, T Marissa PA Unavailable Unavailable Feola, T Marissa PA Unavailable Unavailable Feola, T Marissa PA Unavailable Unavailable Feola, T Marissa PA Unavailable Unavailable Feola, T Marissa PA Unavailable Unavailable Feola, T Marissa PA Unavailable Unavailable Feola, T Marissa PA Unavailable Unavailable Feola, T Marissa PA Unavailable Unavailable Feola, T Marissa PA Unavailable Unavailable Feola, T Marissa PA Unavailable Unavailable Feola, T Marissa PA Unavailable Unavailable Feola, T Marissa PA Unavailable Unavailable Feola, T Marissa PA Unavailable Unavailable Feola, T Marissa PA Unavailable Unavailable Feola, T Marissa PA Unavailable Unavailable Feola, T Marissa PA Unavailable Unavailable Feola, T Marissa PA Unavailable Unavailable Feola, T Marissa PA Unavailable Unavailable Feola, T Marissa PA Unavailable Unavailable Feola, T Marissa PA Unavailable Unavailable Feola, T Marissa PA Unavailable Unavailable Feola, T Marissa PA Unavailable Unavailable Feola, T Marissa PA Unavailable Unavailable Feola, T Marissa PA Unavailable Unavailable Feola, T Marissa PA Unavailable Unavailable Feola, T Marissa PA Unavailable Unavailable Feola, T Marissa PA Unavailable Unavailable Feola, T Marissa PA Unavailable Unavailable Feola, T Marissa PA Unavailable Unavailable Feola, T Marissa PA Unavailable Unavailable Feola, T Marissa PA Unavailable Unavailable Feola, T Marissa PA Unavailable Unavailable Feola, T Marissa PA Unavailable Unavailable Feola, T Marissa PA Unavailable Unavailable Feola, T Marissa PA Unavailable Unavailable Feola, T Marissa PA Unavailable Unavailable Feola, T Marissa PA Unavailable Unavailable Feola, T Marissa PA Unavailable Unavailable Feola, T Marissa PA Unavailable Unavailable Feola, T Marissa PA Unavailable Unavailable Re-disclosure Warning The records that you are about to access may contain information from federally-assisted alcohol or drug abuse programs. If such information is present, then the following federally mandated warning applies: This information has been disclosed to you from records protected by federal confidentiality rules (42 CFR part 2). The federal rules prohibit you from making any further disclosure of this information unless further disclosure is expressly permitted by the written consent of the person to whom it pertains or as otherwise permitted by 42 CFR part 2. A general authorization for the release of medical or other information is NOT sufficient for this purpose. The Federal rules restrict any use of the information to criminally investigate or prosecute any alcohol or drug abuse patient.The records that you are about to access may contain highly sensitive health information, the redisclosure of which is protected by Article 27-F of the [place] State Public Health law. If you continue you may have access to information: Regarding HIV / AIDS; Provided by facilities licensed or operated by the [facility] Office of Mental Health; or Provided by the [facility] Office for People With Developmental Disabilities. If such information is present, then the following [facility] mandated warning applies: This information has been disclosed to you from confidential records which are protected by state law. State law prohibits you from making any further disclosure of this information without the specific written consent of the person to whom it pertains, or as otherwise permitted by law. Any unauthorized further disclosure in violation of state law may result in a fine or half-way sentence or both. A general authorization for the release of medical or other information is NOT sufficient authorization for further disc losure. Family History Family Member Name Family Member Gender Family Member Status Date o f Status Description Data Source(s) Unknown Female Problem MEDENT ([facility]) Unknown Unknown Problem MEDENT ([facility]) sister Unknown Unknown Problem MEDENT ([facility]) Encounters Encounter Providers Location Date Indications Data Source(s ) ( ESTOB) [address] [place] [address] 04/04/2021 12:00:00 AM EDT eCW1 ([facility]) Outpatient Attender: Marissa LUNDBERG 021 04:27:56 PM EDT - 03/20/2021 05:20:06 PM EDT DocuTap ([facility] ) ( ESTOB) [facility] [address] [place] [address] 02/21/2021 12:00:00 AM EDT eCW1 ([facility]) ( COB) [facility] Complicated OB [address] [place] [address] 02/07/2021 12:00:00 AM EDT eCW1 ([facility]) ( ESTOB) [facility] [address] [place] [address] 01/30/2021 12:00:00 AM EDT eCW1 ([facility]) ( ESTOB) [facility] [address] [place] [address] 01/16/2021 12:00:00 AM EDT eCW1 ([facility]) (WC ESTOB) [facility] [address] [place] [address] 01/09/2021 12:00:00 AM EDT eCW1 ([facility]) (WC ESTOB) [facility] [address] [place] [address] 12/22/2020 12:00:00 AM EDT eCW1 ([facility]) Unknown [address] [facility] [address] 12/11/2020 12:00:00 AM EDT eCW1 ([facility]) (WC ESTOB) [facility] [address] [place] [address] 12/08/2020 12:00:00 AM EDT eCW1 ([facility]) (WC ESTOB) [facility] [address] [place] [address] 12/05/2020 12:00:00 AM EDT eCW1 ([facility]) (WC ESTOB) [facility] [address] [place] [address] 11/24/2020 12:00:00 AM EDT eCW1 ([facility]) (WC ESTOB) [facility] [address] [place] [address] 10/27/2020 12:00:00 AM EDT eCW1 ([facility]) [place] [address] [facility] [address] 09/24/2020 12:00:00 AM EST eCW1 ([facility]) (WC ESTOB) [facility] [address] [place] [address] 09/22/2020 12:00:00 AM EST eCW1 ([facility]) Unknown [address] [facility] [address] 09/20/2020 12:00:00 AM EST eCW1 ([facility]) (WC ESTOB) [facility] [address] [place] [address] 08/16/2020 12:00:00 AM EST eCW1 ([facility]) Immunizations Vaccine Date Status Description Data Source(s) COVID-19 VACCINE Pfizer 05/20/2021 12:00:00 AM EDT completed [facility] Vaccine Series Complete: YESThis Data wa s Submitted to [facility] Via [employer]. COVID-19 VACC, MRNA(PFIZER)/PF 05/20/2021 12:00:00 AM EDT completed [facility] COVID-19 VACC, MRNA(PFIZER)/PF 04/29/2021 12:00:00 AM EDT completed [facility] COVID-19 VACCINE Pfizer 04/29/2021 12:00:00 AM EDT completed [facility] Vaccine Series Complete: NOThis Data was Submitted to [facility] [employer]. Medications Medication Brand Name Start Date Product Form Dose Route Admi nistrative Instructions Pharmacy Instructions Status Indications Reaction Description Data Source(s) 800-160 mg 03/20/2021 12:00:00 AM EDT tablet 20 TAKE ONE TABLET BY MOUTH TWICE A DAY FOR 10 DAYS TAKE ONE TABLET BY MOUTH TWICE A DAY FOR 10 DAYS SOLD: 03/21/2021 [facility] 5-325 mg 02/13/2021 12:00:00 AM EDT tablet 20 TAKE ONE TABLET BY MOUTH THREE TIMES A DAY NEEDED FOR PAIN MAXIMUM DAILY DOSE = 3 TAKE ONE TABLET BY MOUTH THREE TIMES A DAY NEEDED FOR PAIN MAXIMUM DAILY DOSE = 3 SOLD: 02/13/2021 [facility] 800 mg 02/13/2021 12:00:00 AM EDT tablet 30 TAKE ONE TABLET BY MOUTH EVERY 8 HOURS TAKE ONE TABLET BY MOUTH EVERY 8 HOURS SOLD: 02/13/2021 [facility] Docusate Sodium 100 MG Oral Tablet Stool Softener 100 MG Sto ol Softener 100 MG 12/11/2020 12:00:00 AM EDT active Stool Softener 100 MG eCW1 ([facility]) ferrous gluconate 324 MG Oral Tablet Ferrous Gluconate 324 (38 Fe) MG Ferrous Gluconate 324 (38 Fe) MG 12/11/2020 12:00:00 AM EDT active eCW1 ([facility]) Docusate Sodium 100 MG Oral Tablet Stool Softener 100 MG Sto ol Softener 100 MG 12/11/2020 12:00:00 AM EDT active Stool Softener 100 MG eCW1 ([facility]) Docusate Sodium 100 MG Oral Tablet Stool Softener 100 MG Sto ol Softener 100 MG 12/11/2020 12:00:00 AM EDT suspended Stool Softener 100 MG eCW1 ([facility]) ferrous gluconate 324 MG Oral Tablet Ferrous Gluconate 324 (38 Fe) MG Ferrous Gluconate 324 (38 Fe) MG 12/11/2020 12:00:00 AM EDT active Ferrous Gluconate 324 (38 Fe) MG eCW1 ([facility]) ferrous gluconate 324 MG Oral Tablet Ferrous Gluconate 324 (38 Fe) MG Ferrous Gluconate 324 (38 Fe) MG 12/11/2020 12:00:00 AM EDT suspended Ferrous Gluconate 324 (38 Fe) MG eCW1 ([facility]) ferrous gluconate 324 MG Oral Tablet Ferrous Gluconate 324 (38 Fe) MG Ferrous Gluconate 324 (38 Fe) MG 12/11/2020 12:00:00 AM EDT suspended Ferrous Gluconate 324 (38 Fe) MG eCW1 ([facility]) ferrous gluconate 324 MG Oral Tablet Ferrous Gluconate 324 (38 Fe) MG Ferrous Gluconate 324 (38 Fe) MG 12/11/2020 12:00:00 AM EDT active Ferrous Gluconate 324 (38 Fe) MG eCW1 ([facility]) Docusate Sodium 100 MG Oral Tablet Stool Softener 100 MG Sto ol Softener 100 MG 12/11/2020 12:00:00 AM EDT active Stool Softener 100 MG eCW1 ([facility]) Docusate Sodium 100 MG Oral Tablet Stool Softener 100 MG Sto ol Softener 100 MG 12/11/2020 12:00:00 AM EDT active Stool Softener 100 MG eCW1 ([facility]) ferrous gluconate 324 MG Oral Tablet Ferrous Gluconate 324 (38 Fe) MG Ferrous Gluconate 324 (38 Fe) MG 12/11/2020 12:00:00 AM EDT active Ferrous Gluconate 324 (38 Fe) MG eCW1 ([facility]) Docusate Sodium 100 MG Oral Tablet Stool Softener 100 MG Sto ol Softener 100 MG 12/11/2020 12:00:00 AM EDT active Stool Softener 100 MG eCW1 ([facility]) Docusate Sodium 100 MG Oral Tablet Stool Softener 100 MG Sto ol Softener 100 MG 12/11/2020 12:00:00 AM EDT suspended Stool Softener 100 MG eCW1 ([facility]) ferrous gluconate 324 MG Oral Tablet Ferrous Gluconate 324 (38 Fe) MG Ferrous Gluconate 324 (38 Fe) MG 12/11/2020 12:00:00 AM EDT active Ferrous Gluconate 324 (38 Fe) MG eCW1 ([facility]) 324 mg (38 mg iron) 12/11/2020 12:00:00 AM EDT tablet 60 TAKE ONE TABLET BY MOUTH TWICE A DAY WITH WATER OR JUICE BETWEEN MEALS TAKE ONE TABLET BY MOUTH TWICE A DAY WITH WATER OR JUICE BETWEEN MEALS SOLD: 12/14/2020 [facility] ferrous gluconate 324 MG Oral Tablet Ferrous Gluconate 324 (38 Fe) MG Ferrous Gluconate 324 (38 Fe) MG 12/11/2020 12:00:00 AM EDT active Ferrous Gluconate 324 (38 Fe) MG eCW1 ([facility]) ferrous gluconate 324 MG Oral Tablet Ferrous Gluconate 324 (38 Fe) MG Ferrous Gluconate 324 (38 Fe) MG 12/11/2020 12:00:00 AM EDT suspended Ferrous Gluconate 324 (38 Fe) MG eCW1 ([facility]) Docusate Sodium 100 MG Oral Tablet Stool Softener 100 MG Sto ol Softener 100 MG 12/11/2020 12:00:00 AM EDT active Stool Softener 100 MG eCW1 ([facility]) 100 mg 12/11/2020 12:00:00 AM EDT capsule 60 TAKE ONE CAPSULE BY MOUTH TWICE A DAY NEEDED FOR CONSTIPATION TAKE ONE CAPSULE BY MOUTH TWICE A DAY NEEDED FOR CONSTIPATION SOLD: 12/14/2020 [facility] Docusate Sodium 100 MG Oral Tablet Stool Softener 100 MG Sto ol Softener 100 MG 12/11/2020 12:00:00 AM EDT active eCW1 ([facility]) ferrous gluconate 324 MG Oral Tablet Ferrous Gluconate 324 (38 Fe) MG Ferrous Gluconate 324 (38 Fe) MG 12/11/2020 12:00:00 AM EDT active Ferrous Gluconate 324 (38 Fe) MG eCW1 ([facility]) Docusate Sodium 100 MG Oral Tablet Stool Softener 100 MG Sto ol Softener 100 MG 12/11/2020 12:00:00 AM EDT suspended Stool Softener 100 MG eCW1 ([facility]) Labetalol hydrochloride 100 MG Oral Tablet Labetalol H Cl 100 MG Labetalol HCl 100 MG 11/24/2020 12:00:00 AM EDT 1.0 {tablet} activ e Labetalol HCl 100 MG eCW1 ([facility]) Labetalol hydrochloride 100 MG Oral Tablet Labetalol H Cl 100 MG Labetalol HCl 100 MG 11/24/2020 12:00:00 AM EDT 1.0 {tablet} suspe nded Labetalol HCl 100 MG eCW1 ([facility]) 100 mg 11/24/2020 12:00:00 AM EDT tablet 60 TAKE ONE TABLET BY MOUTH TWICE A DAY TAKE ONE TABLET BY MOUTH TWICE A DAY SOLD: 11/25/2020 [facility] Labetalol hydrochloride 100 MG Oral Tablet Labetalol H Cl 100 MG Labetalol HCl 100 MG 11/24/2020 12:00:00 AM EDT 1.0 {tablet} activ e Labetalol HCl 100 MG eCW1 ([facility]) Labetalol hydrochloride 100 MG Oral Tablet Labetalol H Cl 100 MG Labetalol HCl 100 MG 11/24/2020 12:00:00 AM EDT 1.0 {tablet} suspe nded Labetalol HCl 100 MG eCW1 ([facility]) Labetalol hydrochloride 100 MG Oral Tablet Labetalol H Cl 100 MG Labetalol HCl 100 MG 11/24/2020 12:00:00 AM EDT 1.0 {tablet} activ e Labetalol HCl 100 MG eCW1 ([facility]) Labetalol hydrochloride 100 MG Oral Tablet Labetalol H Cl 100 MG Labetalol HCl 100 MG 11/24/2020 12:00:00 AM EDT 1.0 {tablet} activ e Labetalol HCl 100 MG eCW1 ([facility]) Labetalol hydrochloride 100 MG Oral Tablet Labetalol H Cl 100 MG Labetalol HCl 100 MG 11/24/2020 12:00:00 AM EDT 1.0 {tablet} activ e Labetalol HCl 100 MG eCW1 ([facility]) Labetalol hydrochloride 100 MG Oral Tablet Labetalol H Cl 100 MG Labetalol HCl 100 MG 11/24/2020 12:00:00 AM EDT 1.0 {tablet} activ e Labetalol HCl 100 MG eCW1 ([facility]) Labetalol hydrochloride 100 MG Oral Tablet LABETALOL HCL 11/24/2020 12:00:00 AM EDT tablet 60 TAKE ONE TABLET BY MOUTH TWI CE A DAY TAKE ONE TABLET BY MOUTH TWICE A DAY SOLD: 01/10/2021 [facility] Labetalol hydrochloride 100 MG Oral Tablet Labetalol H Cl 100 MG Labetalol HCl 100 MG 11/24/2020 12:00:00 AM EDT 1.0 {tablet} active eCW1 ([facility]) Labetalol hydrochloride 100 MG Oral Tablet Labetalol H Cl 100 MG Labetalol HCl 100 MG 11/24/2020 12:00:00 AM EDT 1.0 {tablet} activ e Labetalol HCl 100 MG eCW1 ([facility]) Labetalol hydrochloride 100 MG Oral Tablet Labetalol H Cl 100 MG Labetalol HCl 100 MG 11/24/2020 12:00:00 AM EDT 1.0 {tablet} suspe nded Labetalol HCl 100 MG eCW1 ([facility]) NITROFURANTOIN, MACROCRYSTALS 25 MG / Ni trofurantoin, Monohydrate 75 MG Oral Capsule [Macrobid] Macrobid 100 MG Macrobid 100 MG 09/24/2020 12:00:00 AM EST 1.0 {capsule} active Macrobid 100 MG eC W1 ([facility]) NITROFURANTOIN, MACROCRYSTALS 25 MG / Ni trofurantoin, Monohydrate 75 MG Oral Capsule [Macrobid] Macrobid 100 MG Macrobid 100 MG 09/24/2020 12:00:00 AM EST 1.0 {capsule} active Macrobid 100 MG eC W1 ([facility]) NITROFURANTOIN, MACROCRYSTALS 25 MG / Ni trofurantoin, Monohydrate 75 MG Oral Capsule [Macrobid] Macrobid 100 MG Macrobid 100 MG 09/24/2020 12:00:00 AM EST 1.0 {capsule} active Macrobid 100 MG eC W1 ([facility]) 100 mg 09/24/2020 12:00:00 AM EST capsule 14 TAKE ONE CAPSULE BY MOUTH TWICE A DAY FOR 7 DAYS TAKE ONE CAPSULE BY MOUTH TWICE A DAY FOR 7 DAYS SOLD: 09/24/2020 [facility] NITROFURANTOIN, MACROCRYSTALS 25 MG / Ni trofurantoin, Monohydrate 75 MG Oral Capsule [Macrobid] Macrobid 100 MG Macrobid 100 MG 09/24/2020 12:00:00 AM EST 1.0 {capsule} suspended Macrobid 100 MG eCW1 ([facility]) 81 mg 09/23/2020 12:00:00 AM EST tablet,delayed release (DR/EC) 30 TAKE ONE TABLET BY MOUTH EVERY DAY TAKE ONE TABLET BY MOUTH EVERY DAY SOLD: 09/24/2020 [facility] 81 mg 09/23/2020 12:00:00 AM EST tablet,delayed release (DR/EC) 30 TAKE ONE TABLET BY MOUTH EVERY DAY TAKE ONE TABLET BY MOUTH EVERY DAY SOLD: 11/06/2020 [facility] Aspirin 81 MG Delayed Release Oral Tablet Aspirin 81 81 MG A spirin 81 81 MG 09/22/2020 12:00:00 AM EST 1.0 {tablet} active Aspirin 81 81 MG eCW1 ([facility]) Aspirin 81 MG Delayed Release Oral Tablet Aspirin 81 81 MG A spirin 81 81 MG 09/22/2020 12:00:00 AM EST 1.0 {tablet} active Aspirin 81 81 MG eCW1 ([facility]) Aspirin 81 MG Delayed Release Oral Tablet Aspirin 81 81 MG A spirin 81 81 MG 09/22/2020 12:00:00 AM EST 1.0 {tablet} active Aspirin 81 81 MG eCW1 ([facility]) Aspirin 81 MG Delayed Release Oral Tablet Aspirin 81 81 MG A spirin 81 81 MG 09/22/2020 12:00:00 AM EST 1.0 {tablet} active Aspirin 81 81 MG eCW1 ([facility]) Aspirin 81 MG Delayed Release Oral Tablet Aspirin 81 81 MG A spirin 81 81 MG 09/22/2020 12:00:00 AM EST 1.0 {tablet} active Aspirin 81 81 MG eCW1 ([facility]) Insurance Providers Payer name Policy type / Coverage type Policy ID Covered republican ID Covered republican's relationship to hernandez Policy Hernandez Plan Information [facility] Medigap Part B [id number] [facility] [id number] SP [id number] [facility] Plan Commercial [id number] Self [facility] [id number] SP [id number] [facility] [id number] SP [id number] [employer] [id number] Self [id number] [facility] [id number] ANSI-Medicaid [id number] ANSI-Medicaid [id number] ANSI-Medicaid [id number] [facility] [id number] [facility] O [id number] S [id number] [facility] Health Maintenance Organization ([facility] [id number] Self [id number] [place] Part B [id number] Self [facility] Health Maintenance Organization (O) [id number] Self MEDICAID [id number] SP [id number] MEDICAID M [id number] S [id number] AMERIC[employer]ICE UNHC XIX HMO -I/P [id number] 18 [id number] UNHC AMERICHOICE XIX -HMO [id number] 18 [id number] [facility] [id number] [place] [id number] [facility] [id number] FA2 [id number] [employer] COMMUNITY PL[facility] [id number] SP [id number] [facility] [id number] SP [id number] [facility] Health Maintenance Organization (HMO) [id number] Self [id number] ANSI-Medicaid [id number] [facility]-Medicaid [id number] Problems, Conditions, and Diagnoses Code Display Name Description Problem Type Effective Dates Data Source(s) O10.013 [id number] Essential hypertension affecting in third trimester Problem 02/05/2021 12:00:00 AM EDT eCW1 ([facility]) O10.913 [id number] Pre-existing hyperte nsion affecting in third trimester Problem 01/16/2021 12:00:00 AM EDT eCW1 ([facility]) O16.3 Maternal hypertension Hypertension affecting pre gnancy in third trimester Problem 01/09/2021 12:00:00 AM EDT eCW1 ([facility]) O10.919 [id number] Chronic hypertension affecting Problem 12/05/2020 12:00:00 AM EDT eCW1 ([facility]) O10.012 [id number] Essential hypertension affecting in second trimester Problem 11/23/2020 12:00:00 AM EDT eCW1 ([facility]) E66.01 [id number] Morbid obesity due to excess calories Pro blem 10/01/2020 12:00:00 AM EST eCW1 ([facility]) Z68.43 [id number] BMI 50.0-59.9, adult Problem 10/01/2020 12:0 0:00 AM EST eCW1 ([facility]) O99.212 [id number] Obesity complicating in second trimester Problem 09/21/2020 12:00:00 AM EST eCW1 ([facility]) Z34.80 care Supervision of other normal P roblem 08/16/2020 12:00:00 AM EST eCW1 ([facility]) Surgeries/Procedures No Information Results ID Date Data Source GROUP B STREP CULTURE 01/30/2021 12:00:00 AM EDT eCW1 ([facility]) Name Value Range Interpretation Code Description Data Corrina rce(s) Supporting Document(s) GROUP B STREP CULTURE eCW1 ([facility]) ID Date Data Source Glucose Challenge Test 1 Hour 12/11/2020 12:00:00 AM EDT eCW 1 ([facility]) Name Value Range Interpretation Code Description Data Corrina rce(s) Supporting Document(s) 113 LESS THAN 140 GLUCOSE CHALLENGE TEST 1 HOUR eCW1 ([facility]) ID Date Data Source CBC - Complete Blood Count 12/08/2020 12:00:00 AM EDT eCW1 ( [facility]) Name Value Range Interpretation Code Description Data Corrina rce(s) Supporting Document(s) 4.40 4.00-5.40 eCW1 ([facility]) 7.9 4.0-10.0 eCW1 ([facility]) 79.1 80.0-96.0 eCW1 ([facility]) 10.6 12.0-15.5 eCW1 ([facility]) 34.8 36.0-47.0 eCW1 ([facility]) 30.5 32.0-36.5 eCW1 ([facility]) 24.1 27.0-33.0 eCW1 ([facility]) 15.3 11.5-14.5 eCW1 ([facility]) 236 150-450 eCW1 ([facility]) ID Date Data Source Type and Screen (D Rh Antibody Screen) 12/08/2020 12:00:00 A M EDT eCW1 ([facility]) Name Value Range Interpretation Code Description Data Corrina rce(s) Supporting Document(s) O POSITIVE eCW1 ([facility]) NEGATIVE eCW1 ([facility]) ID Date Data Source [facility] OBS FOLLOW UP OR REPEAT 11/10/2020 12:00:00 AM EDT eCW1 ([facility]) Name Value Range Interpretation Code Description Data Corrina rce(s) Supporting Document(s) [facility] OBS FOLLOW UP OR REPEAT e CW1 ([facility]) ID Date Data Source Pre Eclampsia Profile 09/29/2020 12:00:00 AM EST eCW1 ([facility]) Name Value Range Interpretation Code Description Data Corrina rce(s) Supporting Document(s) 0.58 0.55-1.30 CREATININE FOR GFR eCW1 ([facility]) > 60.0 >60 GLOMERULAR FILTRATION RATE eCW 1 ([facility]) 8 7-37 AST/SGOT eCW1 ([facility]) 17 12-78 ALT/SGPT eCW1 ([facility]) 3.6 2.6-6.0 URIC ACID eCW1 ([facility]) 0.3 0.2-1.0 BILIRUBIN,TOTAL eCW1 ([facility]) 135 84-246 LDH LACTATE DEHYDROGENASE eCW1 ([facility]) ID Date Data Source URINE CULTURE 09/22/2020 12:00:00 AM EST eCW1 ([facility]) Name Value Range Interpretation Code Description Data Corrina rce(s) Supporting Document(s) URINE CULTURE eCW1 ([facility]) ID Date Data Source TOTAL PROTEIN,RANDOM URINE 09/22/2020 12:00:00 AM EST eCW1 ( [facility]) Name Value Range Interpretation Code Description Data Corrina rce(s) Supporting Document(s) 5.8 0.0-12.0 TOTAL PROTEIN,RANDOM URIN E eCW1 ([facility]) ID Date Data Source CREATININE,RANDOM URINE 09/22/2020 12:00:00 AM EST eCW1 ([facility]) Name Value Range Interpretation Code Description Data Corrina rce(s) Supporting Document(s) 116.0 CREATININE,RANDOM URINE eCW1 ( [facility]) ID Date Data Source [id number] 04/15/2020 12:00:00 AM EDT [facility] Name Value Range Interpretation Code Description Data Corrina rce(s) Supporting Document(s) SARS coronavirus 2 RNA [facility] This lab was ordered by [facility] and rep orted by [facility]. Procedure Social History Code Duration Value Status Description Data Source(s ) Smoking 04/04/2021 12:00:00 AM EDT Never Smoker completed Never S moker eCW1 ([facility]) Smoking 02/21/2021 12:00:00 AM EDT Never Smoker completed Never S moker eCW1 ([facility]) Smoking 02/21/2021 12:00:00 AM EDT Never Smoker completed Never S moker eCW1 ([facility]) Smoking 01/30/2021 12:00:00 AM EDT Never Smoker completed Never S moker eCW1 ([facility]) Smoking 01/17/2021 12:00:00 AM EDT Never Smoker completed Never S moker eCW1 ([facility]) Smoking 01/15/2021 12:00:00 AM EDT Never Smoker completed Never S moker eCW1 ([facility]) Smoking 01/02/2021 12:00:00 AM EDT Never Smoker completed Never S moker eCW1 ([facility]) Smoking 12/15/2020 12:00:00 AM EDT Never Smoker completed Never S moker eCW1 ([facility]) Smoking 12/07/2020 12:00:00 AM EDT Never Smoker completed Never S moker eCW1 ([facility]) Smoking 12/07/2020 12:00:00 AM EDT Never Smoker completed Never S moker eCW1 ([facility]) Smoking 11/24/2020 12:00:00 AM EDT Never Smoker completed Never S moker eCW1 ([facility]) Smoking 10/27/2020 12:00:00 AM EDT Never Smoker completed Never S moker eCW1 ([facility]) Smoking 09/18/2020 12:00:00 AM EST Never Smoker completed Never S moker eCW1 ([facility]) Smoking 09/18/2020 12:00:00 AM EST Never Smoker completed Never S moker eCW1 ([facility]) Smoking 09/18/2020 12:00:00 AM EST Never Smoker completed Never S moker eCW1 ([facility]) Smoking 08/16/2020 12:00:00 AM EST Never Smoker completed Never S moker eCW1 ([facility]) Vital Signs ID Date Data Source UNK Name Value Range Interpretation Code Description Data Source(s) Body weight 292.2 [lb_av] 292.2 [lb_av] eCW1 ([facility]) Body height 62 [in_i] 62 [in_i] W1 ([facility]) Body mass index (BMI) [Ratio] 53.44 kg/m2 53.44 kg/m2 eCW1 ([facility]) Systolic blood pressure 130 mm[Hg] 130 mm[Hg] e CW1 ([facility]) Diastolic blood pressure 84 mm[Hg] 84 mm[Hg] eCW1 ([facility]) Systolic blood pressure 120 mm[Hg] 120 mm[Hg] e CW1 ([facility]) Diastolic blood pressure 78 mm[Hg] 78 mm[Hg] W1 ([facility]) Body weight 283.6 [lb_av] 283.6 [lb_av] eCW1 ([facility]) Body weight 128.64 kg 128.64 kg eCW1 ([facility]) Body height 62 [in_i] 62 [in_i] eCW1 ([facility]) Body mass index (BMI) [Ratio] 51.87 kg/m2 51.87 kg/m2 eCW1 ([facility]) Body weight 305.5 [lb_av] 305.5 [lb_av] eCW1 ([facility]) Body weight 138.57 kg 138.57 kg eCW1 ([facility]) Body height 62 [in_i] 62 [in_i] eCW1 ([facility]) Body mass index (BMI) [Ratio] 55.877 kg/m2 55.8 77 kg/m2 eCW1 ([facility]) Systolic blood pressure 140 mm[Hg] 140 mm[Hg] e CW1 ([facility]) Diastolic blood pressure 80 mm[Hg] 80 mm[Hg] eCW1 ([facility]) Body weight 303 [lb_av] 303 [lb_av] eCW1 ([facility]) Body height 62 [in_i] 62 [in_i] eCW1 ([facility]) Body mass index (BMI) [Ratio] 55.41 kg/m2 55.41 kg/m2 eCW1 ([facility]) Systolic blood pressure 126 mm[Hg] 126 mm[Hg] e CW1 ([facility]) Diastolic blood pressure 80 mm[Hg] 80 mm[Hg] eCW1 ([facility]) Body weight 303 [lb_av] 303 [lb_av] eCW1 ([facility]) Body height 62 [in_i] 62 [in_i] eCW1 ([facility]) Body mass index (BMI) [Ratio] 55.419 kg/m2 55.4 19 kg/m2 eCW1 ([facility]) Systolic blood pressure 132 mm[Hg] 132 mm[Hg] e CW1 ([facility]) Diastolic blood pressure 72 mm[Hg] 72 mm[Hg] eCW1 ([facility]) Body weight 303 [lb_av] 303 [lb_av] eCW1 ([facility]) Body height 62 [in_i] 62 [in_i] eCW1 ([facility]) Body mass index (BMI) [Ratio] 55.419 kg/m2 55.4 19 kg/m2 eCW1 ([facility]) Systolic blood pressure 136 mm[Hg] 136 mm[Hg] e CW1 ([facility]) Diastolic blood pressure 84 mm[Hg] 84 mm[Hg] eCW1 ([facility]) Body weight 305.6 [lb_av] 305.6 [lb_av] eCW1 ([facility]) Body height 62 [in_i] 62 [in_i] eCW1 ([facility]) Body mass index (BMI) [Ratio] 55.895 kg/m2 55.8 95 kg/m2 eCW1 ([facility]) Systolic blood pressure 134 mm[Hg] 134 mm[Hg] e CW1 ([facility]) Diastolic blood pressure 78 mm[Hg] 78 mm[Hg] eCW1 ([facility]) Body weight 305.8 [lb_av] 305.8 [lb_av] eCW1 ([facility]) Body weight 138.71 kg 138.71 kg eCW1 ([facility]) Body height 62 [in_i] 62 [in_i] eCW1 ([facility]) Body mass index (BMI) [Ratio] 55.932 kg/m2 55.9 32 kg/m2 eCW1 ([facility]) Systolic blood pressure 132 mm[Hg] 132 mm[Hg] e CW1 ([facility]) Diastolic blood pressure 76 mm[Hg] 76 mm[Hg] eCW1 ([facility]) Body weight 303.4 [lb_av] 303.4 [lb_av] eCW1 ([facility]) Body weight 137.62 kg 137.62 kg eCW1 ([facility]) Body height 62 [in_i] 62 [in_i] eCW1 ([facility]) Body mass index (BMI) [Ratio] 55.493 kg/m2 55.4 93 kg/m2 eCW1 ([facility]) Systolic blood pressure 160 mm[Hg] 160 mm[Hg] e CW1 ([facility]) Diastolic blood pressure 80 mm[Hg] 80 mm[Hg] eCW1 ([facility]) Body weight 303.8 [lb_av] 303.8 [lb_av] eCW1 ([facility]) Body height 62 [in_i] 62 [in_i] eCW1 ([facility]) Body mass index (BMI) [Ratio] 55.566 kg/m2 55.5 66 kg/m2 eCW1 ([facility]) Systolic blood pressure 132 mm[Hg] 132 mm[Hg] e CW1 ([facility]) Diastolic blood pressure 76 mm[Hg] 76 mm[Hg] eCW1 ([facility]) Body weight 301 [lb_av] 301 [lb_av] eCW1 ([facility]) Body height 62 [in_i] 62 [in_i] eCW1 ([facility]) Body mass index (BMI) [Ratio] 55.054 kg/m2 55.0 54 kg/m2 eCW1 ([facility]) Systolic blood pressure 140 mm[Hg] 140 mm[Hg] e CW1 ([facility]) Diastolic blood pressure 80 mm[Hg] 80 mm[Hg] eCW1 ([facility]) Body weight 296 [lb_av] 296 [lb_av] eCW1 ([facility]) Body height 62 [in_i] 62 [in_i] eCW1 ([facility]) Body mass index (BMI) [Ratio] 54.139 kg/m2 54.1 39 kg/m2 eCW1 ([facility]) Systolic blood pressure 126 mm[Hg] 126 mm[Hg] e CW1 ([facility]) Diastolic blood pressure 86 mm[Hg] 86 mm[Hg] eCW1 ([facility]) Patient Treatment Plan of Care Planned Activity Planned Date Details Description Data Source (s) ferrous gluconate 324 MG Oral Tablet 12/11/2020 12:00:00 AM EDT eCW1 ([facility]) Docusate Sodium 100 MG Oral Tablet 12/11/2020 12:00:00 AM EDT eCW1 ([facility]) ferrous gluconate 324 MG Oral Tablet 12/11/2020 12:00:00 AM EDT eCW1 ([facility]) Docusate Sodium 100 MG Oral Tablet 12/11/2020 12:00:00 AM EDT eCW1 ([facility]) ferrous gluconate 324 MG Oral Tablet 12/11/2020 12:00:00 AM EDT eCW1 ([facility]) Docusate Sodium 100 MG Oral Tablet 12/11/2020 12:00:00 AM EDT eCW1 ([facility]) Labetalol hydrochloride 100 MG Oral Tablet 11/24/2020 12:00:00 AM E DT eCW1 ([facility]) NITROFURANTOIN, MACROCRYSTALS 25 MG / Ni trofurantoin, Monohydrate 75 MG Oral Capsule [Macrobid] 09/24/2020 12:00:00 AM EST eC W1 ([facility]) NITROFURANTOIN, MACROCRYSTALS 25 MG / Ni trofurantoin, Monohydrate 75 MG Oral Capsule [Macrobid] 09/24/2020 12:00:00 AM EST eC W1 ([facility]) Aspirin 81 MG Delayed Release Oral Tablet 09/22/2020 12:00:00 AM ES T eCW1 ([facility]) Aspirin 81 MG Delayed Release Oral Tablet 09/22/2020 12:00:00 AM ES T eCW1 ([facility]) Aspirin 81 MG Delayed Release Oral Tablet 09/22/2020 12:00:00 AM ES T eCW1 ([facility])
--- OUTSIDE RECORDS SUMMARY | 2021-05-29 15:19 | CCD ---
Author Author [facility] Organization [facility] Address Unknown Phone Unavailable Care Team Providers Care Recreation Specialist Name Role Phone Emily Smith Unavailable PROBLEMS Type Condition ICD9-CM Code [id number] Code Onset Dates Condition S tatus W/U Status Risk SNOMED Code Notes Problem Hyperlipidemia E78.5 Active confirmed 58902 004 Problem Vitamin D deficiency, unspecified E55.9 Active con firmed 52039977 Problem Obesity E66.9 Active confirmed 230678648 Problem Supervision of other normal Z34.80 Ac tive confirm 136922823 Problem Obesity complicating in second trimester O99.212 Active confirmed 744613926958 Problem BMI 50.0-59.9, adult Z68.43 Active confirmed 388271803 Problem Pre-existing hypertension affecting in third trimester O10.913 Active confirmed 351051223 Problem Irregular menstrual cycle N92.6 Active confirmed 94638755 Problem Essential hypertension affecting in third tr imester O10.013 Active confirmed 93831229 Problem PCOS (polycystic ovarian syndrome) E28.2 Activ e confirmed 86705414 Problem Morbid obesity due to excess calories E66.01 Ac tive confirmed 940148629 Problem Essential hypertension affecting in se cond trimester O10.012 Active confirmed 56009921 Problem Chronic hypertension affecting O10.919 Active confirmed 50340122 Problem Hypertension affecting in third trimester O16.3 Active confirmed 774533945 ALLERGIES No Known Allergies ENCOUNTERS from 1991 to 2021-03-25 Encounter Location Date Provider Diagnosis [facility] [address] [phone] [place] [address] Feb, Emily Smith Obesity complicating , third trimester O99.213 ; Essential hypertension affecting in third trimester O10.013 and 36 weeks gestation of Z3A.36 IMMUNIZATIONS No Information SOCIAL HISTORY Tobacco Use: Social History Observation Description Date Details (start date - stop date) Never Smoker Sex Assigned At : Social History Observation Description Sex Assigned At Unknown Language: Question Answer Notes Languages spoken: [place] Alcohol Screening: Question Answer Notes Did you have a drink containing alcohol in the past year? No Points 0 Interpretation Negative Tobacco Use: Question Answer Notes Are you a: never smoker REASON FOR REFERRAL No Information VITAL SIGNS Weight 305.5 lbs Feb, Weight-kg 138.57 kg Feb, Height 62 in Feb, BMI 55.877 kg/m2 Feb, Blood pressure systolic 140 mm Hg Feb, Blood pressure diastolic 80 mm Hg Feb, MEDICATIONS Medication SIG (Take, Route, Frequency, Duration) Notes Start Da te End Date Status Ferrous Gluconate 324 (38 Fe) MG 1 tablet with water o r juice between meals Orally Twice per day for 30 day(s) December, Not-Taking Labetalol HCl 100 MG 1 tablet Orally Twice a day for 30 day(s) Nov, Not-Taking Stool Softener 100 MG 1 tablet as needed for constipation Or ally twice per day December, Not-Taking PROCEDURES No Information RESULTS No Results REASON FOR VISIT 1 wk pn nst MEDICAL (GENERAL) HISTORY Type Description Date Medical History -2008 Medical History Hirsutism Medical History Irregualr menstrual bleeding Medical History IFG Surgical History tonsillectomy age 18 Surgical History right arm fx repair age 11 Surgical History c section x3 Surgical History gall bladder Hospitalization History childbirth Goals Section No Information Health Concerns No Information MEDICAL EQUIPMENT No Information MENTAL STATUS No Information FUNCTIONAL STATUS No Information ASSESSMENTS Encounter Date Diagnosis Assessment Notes Treatment Notes Treatm ent Clinical Notes Feb, Obesity complicating , third tr imester (ICD-10 - O99.213) Feb, Essential hypertension affec ting in third trimester (ICD- 10 - O10.013) Feb, 36 weeks gestation of (ICD-10 - Z3A.36 ) PLAN OF TREATMENT Next Appt Details Provider Name:Emily Smith, 2021-03-29 01:40:00 PM, [address], , [place], [address], Insurance Providers Payer Name Payer Address Payer Phone Insured Name Patient Relati onship to Insured Coverage Start Date Coverage End Date [facility] [place] [address] [facility] [address] ISAI LAWRENCE self
--- OUTSIDE RECORDS SUMMARY | 2021-05-29 15:19 | CCD ---
Author Author [facility] Organization [facility] Address Unknown Phone Unavailable Care Team Providers Care Diesel Engine Operator Name Role Phone Kalayn Walker Unavailable PROBLEMS Type Condition ICD9-CM Code [id number] Code Onset Dates Condition S tatus W/U Status Risk SNOMED Code Notes Problem Hyperlipidemia E78.5 Active confirmed 69785 004 Problem Vitamin D deficiency, unspecified E55.9 Active con firmed 82994160 Problem Obesity E66.9 Active confirmed 812921954 Problem Supervision of other normal Z34.80 Ac tive confirm 673393043 Problem Obesity complicating in second trimester O99.212 Active confirmed 286722559262 Problem BMI 50.0-59.9, adult Z68.43 Active confirmed 797616164 Problem Pre-existing hypertension affecting in third trimester O10.913 Active confirmed 959064094 Problem Irregular menstrual cycle N92.6 Active confirmed 92674672 Problem Essential hypertension affecting in third tr imester O10.013 Active confirmed 24439400 Problem PCOS (polycystic ovarian syndrome) E28.2 Activ e confirmed 82029007 Problem Morbid obesity due to excess calories E66.01 Ac tive confirmed 784924828 Problem Essential hypertension affecting in se cond trimester O10.012 Active confirmed 58010248 Problem Chronic hypertension affecting O10.919 Active confirmed 56316308 Problem Hypertension affecting in third trimester O16.3 Active confirmed 701794984 ALLERGIES No Known Allergies ENCOUNTERS from 1991 to 2021-04-23 Encounter Location Date Provider Diagnosis [facility] [address] [place] [address] [place] [address] Apr, Kalyan Walker care foll owing delivery Z39.2 IMMUNIZATIONS No Information SOCIAL HISTORY Tobacco Use: Social History Observation Description Date Details (start date - stop date) Never Smoker Sex Assigned At : Social History Observation Description Sex Assigned At Unknown Language: Question Answer Notes Languages spoken: [place] Alcohol Screening: Question Answer Notes Did you have a drink containing alcohol in the past year? No Points 0 Interpretation Negative Tobacco Use: Question Answer Notes Are you a: never smoker REASON FOR REFERRAL No Information VITAL SIGNS Weight 292.2 lbs Apr, Height 62 in Apr, BMI 53.44 kg/m2 Apr, Blood pressure systolic 130 mm Hg Apr, Blood pressure diastolic 84 mm Hg Apr, MEDICATIONS Medication SIG (Take, Route, Frequency, Duration) [...] Information RESULTS No Results REASON FOR VISIT 7 WK PP MEDICAL (GENERAL) HISTORY Type Description Date Medical History Medical History Hirsutism Medical History Irregualr menstrual bleeding Medical History IFG Medical History Gestational hypertensive Surgical History tonsillectomy age 18 Surgical History right arm fx repair age 11 Surgical History c section x3 Surgical History gall bladder Hospitalization History childbirth Goals Section No Information Health Concerns No Information MEDICAL EQUIPMENT No Information MENTAL STATUS No Information FUNCTIONAL STATUS No Information ASSESSMENTS Encounter Date Diagnosis Assessment Notes Treatment Notes Treatm ent Clinical Notes Apr, care following delivery (ICD -10 - Z39.2) PLAN OF TREATMENT No Information Insurance Providers Payer Name Payer Address Payer Phone Insured Name Patient Relati onship to Insured Coverage Start Date Coverage End Date [facility] COMM[facility] PLAN [facility] [address] [facility] [phone] ISAI LAWRENCE self
--- OUTSIDE RECORDS SUMMARY | 2021-05-29 15:19 | CCD ---
Author Author [facility] Organization [facility] Address Unknown Phone Unavailable Care Team Providers Care [employer] Name Role Phone Nahomy Smith Unavailable PROBLEMS Type Condition ICD9-CM Code [id number] Code Onset Dates Condition S tatus W/U Status Risk SNOMED Code Notes Problem Hyperlipidemia E78.5 Active confirmed 15827 004 Problem Vitamin D deficiency, unspecified E55.9 Active con firmed 77684395 Problem Obesity E66.9 Active confirmed 892150504 Problem Supervision of other normal Z34.80 Ac tive confirm 410283444 Problem Obesity complicating in second trimester O99.212 Active confirmed 565357138224 Problem BMI 50.0-59.9, adult Z68.43 Active confirmed 490259098 Problem Pre-existing hypertension affecting in third trimester O10.913 Active confirmed 843429724 Problem Irregular menstrual cycle N92.6 Active confirmed 56570378 Problem Essential hypertension affecting in third tr imester O10.013 Active confirmed 28275843 Problem PCOS (polycystic ovarian syndrome) E28.2 Activ e confirmed 18012179 Problem Morbid obesity due to excess calories E66.01 Ac tive confirmed 542748661 Problem Essential hypertension affecting in se cond trimester O10.012 Active confirmed 02400214 Problem Chronic hypertension affecting O10.919 Active confirmed 02876298 Problem Hypertension affecting in third trimester O16.3 Active confirmed 967826553 ALLERGIES No Known Allergies ENCOUNTERS from 1991 to 2021-03-25 Encounter Location Date Provider Diagnosis [facility] [address] [facility] [phone] [place] [address] Feb, Nahomy Smith Routine f ollow-up Z39.2 IMMUNIZATIONS No Information SOCIAL HISTORY Tobacco Use: Social History Observation Description Date Details (start date - stop date) Never Smoker Sex Assigned At : Social History Observation Description Sex Assigned At Unknown Language: Question Answer Notes Languages spoken: [place] Alcohol Screening: Question Answer Notes Did you have a drink containing alcohol in the past year? No Points 0 Interpretation Negative Tobacco Use: Question Answer Notes Are you a: never smoker REASON FOR REFERRAL No Information VITAL SIGNS Weight 283.6 lbs Feb, Weight-kg 128.64 kg Feb, Height 62 in Feb, BMI 51.87 kg/m2 Feb, Blood pressure systolic 120 mm Hg Feb, Blood pressure diastolic 78 mm Hg Feb, MEDICATIONS Medication SIG (Take, [...] Information RESULTS No Results REASON FOR VISIT 2WK INCISION CK (NAHOMY ASSISTED CS) MEDICAL (GENERAL) HISTORY Type Description Date Medical [...] Treatment Notes Treatm ent Clinical Notes Feb, Routine follow-up (ICD-10 - Z39.2) PLAN OF TREATMENT Next Appt Details 4 Weeks to 6 weeks Reason: exa m/f/u Provider Name:Nahomy Smith, 2021-03-29 01:40:00 PM, [address], , [place], [address], Follow Up:4 Weeks to 6 weeksPostpartum exam/f/u Insurance Providers Payer Name Payer Address Payer Phone Insured Name Patient Relati onship to Insured Coverage Start Date Coverage End Date [facility] COMMUN[facility] PLAN [facility] [address] [facility] [phone] ISAI LAWRENCE self
--- OUTSIDE RECORDS SUMMARY | 2021-05-29 16:51 | CCD ---
Author Author [facility] Organization [facility] Address Unknown Phone Unavailable Care Team Providers Care Foreign Clerk Name Role Phone Maren Pederson PA Unavailable [...] is protected by Article 27-F of the [place] State Public Health law. If you continue you may have access to information: Regarding HIV / AIDS; Provided by facilities licensed or operated by the [facility] Office of Mental Health; or Provided by the [facility] Office for People With Developmental Disabilities. If such information is present, then the following [facility] mandated warning applies: This information has been [...] law may result in a fine or senior living sentence or both. A general authorization for [...] Date Indications Data Source(s ) ( ESTOB) [address] [place] [address] 04/04/2021 12:00:00 AM EDT eCW1 ([facility]) Outpatient Attender: Marissa LUNDBERG 021 04:27:56 PM EDT - 03/20/2021 05:20:06 PM EDT DocuTap ([facility] ) ( ESTOB) [facility] [address] [place] [address] 02/21/2021 12:00:00 AM EDT eCW1 ([facility]) ( COB) [facility] Complicated OB [address] [place] [address] 02/07/2021 12:00:00 AM EDT eCW1 ([facility]) ( ESTOB) [facility] OB [address] [place] [address] 01/30/2021 12:00:00 AM EDT eCW1 ([facility]) ( ESTOB) [facility] [address] [place] [address] 01/16/2021 12:00:00 AM EDT eCW1 ([facility]) (WC ESTOB) [facility] [address] [place] [address] 01/09/2021 12:00:00 AM EDT eCW1 ([facility]) (WC ESTOB) [facility] [address] [place] [address] 12/22/2020 12:00:00 AM EDT eCW1 ([facility]) [place] [address] [facility] [address] 12/11/2020 12:00:00 AM EDT eCW1 ([facility]) (WC ESTOB) [facility] [address] [place] [address] 12/08/2020 12:00:00 AM EDT eCW1 ([facility]) (WC ESTOB) [facility] [address] [place] [address] 12/05/2020 12:00:00 AM EDT eCW1 ([facility]) (WC ESTOB) [facility] [address] [place] [address] 11/24/2020 12:00:00 AM EDT eCW1 ([facility]) (WC ESTOB) [facility] [address] [place] [address] 10/27/2020 12:00:00 AM EDT eCW1 ([facility]) [place] [address] [facility] [address] 09/24/2020 12:00:00 AM EST eCW1 ([facility]) (WC ESTOB) [facility] [address] [place] [address] 09/22/2020 12:00:00 AM EST eCW1 ([facility]) [place] [address] [facility] [address] 09/20/2020 12:00:00 AM EST eCW1 ([facility]) (WC ESTOB) [facility] [address] [place] [address] 08/16/2020 12:00:00 AM EST eCW1 ([facility]) Immunizations Vaccine Date Status Description Data Source(s) COVID-19 VACCINE Pfizer 05/20/2021 12:00:00 AM EDT completed [facility] Vaccine Series Complete: YESThis Data wa s Submitted to [facility] Via [employer]. COVID-19 VACC, MRNA(PFIZER)/PF 05/20/2021 12:00:00 AM EDT completed [facility] COVID-19 VACC, MRNA(PFIZER)/PF 04/29/2021 12:00:00 AM EDT completed [facility] COVID-19 VACCINE Pfizer 04/29/2021 12:00:00 AM EDT completed [facility] Vaccine Series Complete: NOThis Data was Submitted to [facility] Via [employer]. Medications Medication Brand Name Start Date Product [...] EDT active Stool Softener 100 MG eCW1 ([facility]ly [facility]) ferrous gluconate 324 MG Oral Tablet Ferrous Gluconate 324 (38 Fe) MG Ferrous Gluconate 324 (38 Fe) MG 12/11/2020 12:00:00 AM EDT active eCW1 ([facility]ly [facility]) Docusate Sodium 100 MG Oral Tablet Stool Softener 100 MG Sto ol Softener 100 MG 12/11/2020 12:00:00 AM EDT active Stool Softener 100 MG eCW1 ([facility]ly [facility]) Docusate Sodium 100 MG Oral Tablet Stool Softener 100 MG Sto ol Softener 100 MG 12/11/2020 12:00:00 AM EDT suspended Stool Softener 100 MG eCW1 ([facility]ly [facility]) ferrous gluconate 324 MG Oral Tablet Ferrous Gluconate 324 (38 Fe) MG Ferrous Gluconate 324 (38 Fe) MG 12/11/2020 12:00:00 AM EDT active Ferrous Gluconate 324 (38 Fe) MG eCW1 ([facility]) ferrous gluconate 324 MG Oral Tablet Ferrous Gluconate 324 (38 Fe) MG Ferrous Gluconate 324 (38 Fe) MG 12/11/2020 12:00:00 AM EDT suspended Ferrous Gluconate 324 (38 Fe) MG eCW1 ([facility]) ferrous gluconate 324 MG Oral Tablet Ferrous Gluconate 324 (38 Fe) MG Ferrous Gluconate 324 (38 Fe) MG 12/11/2020 12:00:00 AM EDT suspended Ferrous Gluconate 324 (38 Fe) MG eCW1 ([facility]) ferrous gluconate 324 MG Oral Tablet Ferrous Gluconate 324 (38 Fe) MG Ferrous Gluconate 324 (38 Fe) MG 12/11/2020 12:00:00 AM EDT active Ferrous Gluconate 324 (38 Fe) MG eCW1 ([facility]) Docusate Sodium 100 MG Oral Tablet Stool Softener 100 MG Sto ol Softener 100 MG 12/11/2020 12:00:00 AM EDT active Stool Softener 100 MG eCW1 ([facility]ly [facility]) Docusate Sodium 100 MG Oral Tablet Stool Softener 100 MG Sto ol Softener 100 MG 12/11/2020 12:00:00 AM EDT active Stool Softener 100 MG eCW1 ([facility]) ferrous gluconate 324 MG Oral Tablet Ferrous Gluconate 324 (38 Fe) MG Ferrous Gluconate 324 (38 Fe) MG 12/11/2020 12:00:00 AM EDT active Ferrous Gluconate 324 (38 Fe) MG eCW1 ([facility]) Docusate Sodium 100 MG Oral Tablet Stool Softener 100 MG Sto ol Softener 100 MG 12/11/2020 12:00:00 AM EDT active Stool Softener 100 MG eCW1 ([facility]) Docusate Sodium 100 MG Oral Tablet Stool Softener 100 MG Sto ol Softener 100 MG 12/11/2020 12:00:00 AM EDT suspended Stool Softener 100 MG eCW1 ([facility]) ferrous gluconate 324 MG Oral Tablet Ferrous Gluconate 324 (38 Fe) MG Ferrous Gluconate 324 (38 Fe) MG 12/11/2020 12:00:00 AM EDT active Ferrous Gluconate 324 (38 Fe) MG eCW1 ([facility]) 324 mg (38 mg iron) 12/11/2020 12:00:00 AM EDT tablet 60 TAKE ONE TABLET BY MOUTH TWICE A DAY WITH WATER OR JUICE BETWEEN MEALS TAKE ONE TABLET BY MOUTH TWICE A DAY WITH WATER OR JUICE BETWEEN MEALS SOLD: 12/14/2020 [facility] ferrous gluconate 324 MG Oral Tablet Ferrous Gluconate 324 (38 Fe) MG Ferrous Gluconate 324 (38 Fe) MG 12/11/2020 12:00:00 AM EDT active Ferrous Gluconate 324 (38 Fe) MG eCW1 ([facility]) ferrous gluconate 324 MG Oral Tablet Ferrous Gluconate 324 (38 Fe) MG Ferrous Gluconate 324 (38 Fe) MG 12/11/2020 12:00:00 AM EDT suspended Ferrous Gluconate 324 (38 Fe) MG eCW1 ([facility]) Docusate Sodium 100 MG Oral Tablet Stool Softener 100 MG Sto ol Softener 100 MG 12/11/2020 12:00:00 AM EDT active Stool Softener 100 MG eCW1 ([facility]) 100 mg 12/11/2020 12:00:00 AM EDT capsule 60 TAKE ONE CAPSULE BY MOUTH TWICE A DAY NEEDED FOR CONSTIPATION TAKE ONE CAPSULE BY MOUTH TWICE A DAY NEEDED FOR CONSTIPATION SOLD: 12/14/2020 [facility] Docusate Sodium 100 MG Oral Tablet Stool Softener 100 MG Sto ol Softener 100 MG 12/11/2020 12:00:00 AM EDT active eCW1 ([facility]) ferrous gluconate 324 MG Oral Tablet Ferrous Gluconate 324 (38 Fe) MG Ferrous Gluconate 324 (38 Fe) MG 12/11/2020 12:00:00 AM EDT active Ferrous Gluconate 324 (38 Fe) MG eCW1 ([facility]ly [facility]) Docusate Sodium 100 MG Oral Tablet Stool Softener 100 MG Sto ol Softener 100 MG 12/11/2020 12:00:00 AM EDT suspended Stool Softener 100 MG eCW1 ([facility]ly [facility]) Labetalol hydrochloride 100 MG Oral Tablet Labetalol H Cl 100 MG Labetalol HCl 100 MG 11/24/2020 12:00:00 AM EDT 1.0 {tablet} activ e Labetalol HCl 100 MG eCW1 ([facility]) Labetalol hydrochloride 100 MG Oral Tablet Labetalol H Cl 100 MG Labetalol HCl 100 MG 11/24/2020 12:00:00 AM EDT 1.0 {tablet} suspe nded Labetalol HCl 100 MG eCW1 ([facility]) 100 mg 11/24/2020 12:00:00 AM EDT tablet 60 TAKE ONE TABLET BY MOUTH TWICE A DAY TAKE ONE TABLET BY MOUTH TWICE A DAY SOLD: 11/25/2020 [facility] Labetalol hydrochloride 100 MG Oral Tablet Labetalol H Cl 100 MG Labetalol HCl 100 MG 11/24/2020 12:00:00 AM EDT 1.0 {tablet} activ e Labetalol HCl 100 MG eCW1 ([facility]ly [facility]) Labetalol hydrochloride 100 MG Oral Tablet Labetalol H Cl 100 MG Labetalol HCl 100 MG 11/24/2020 12:00:00 AM EDT 1.0 {tablet} suspe nded Labetalol HCl 100 MG eCW1 ([facility]) Labetalol hydrochloride 100 MG Oral Tablet Labetalol H Cl 100 MG Labetalol HCl 100 MG 11/24/2020 12:00:00 AM EDT 1.0 {tablet} activ e Labetalol HCl 100 MG eCW1 ([facility]ly [facility]) Labetalol hydrochloride 100 MG Oral Tablet Labetalol H Cl 100 MG Labetalol HCl 100 MG 11/24/2020 12:00:00 AM EDT 1.0 {tablet} activ e Labetalol HCl 100 MG eCW1 ([facility]) Labetalol hydrochloride 100 MG Oral Tablet Labetalol H Cl 100 MG Labetalol HCl 100 MG 11/24/2020 12:00:00 AM EDT 1.0 {tablet} activ e Labetalol HCl 100 MG eCW1 ([facility]) Labetalol hydrochloride 100 MG Oral Tablet Labetalol H Cl 100 MG Labetalol HCl 100 MG 11/24/2020 12:00:00 AM EDT 1.0 {tablet} activ e Labetalol HCl 100 MG eCW1 ([facility]) Labetalol hydrochloride 100 MG Oral Tablet LABETALOL HCL 11/24/2020 12:00:00 AM EDT tablet 60 TAKE ONE TABLET BY MOUTH TWI CE A DAY TAKE ONE TABLET BY MOUTH TWICE A DAY SOLD: 01/10/2021 [facility] Labetalol hydrochloride 100 MG Oral Tablet Labetalol H Cl 100 MG Labetalol HCl 100 MG 11/24/2020 12:00:00 AM EDT 1.0 {tablet} active eCW1 ([facility]) Labetalol hydrochloride 100 MG Oral Tablet Labetalol H Cl 100 MG Labetalol HCl 100 MG 11/24/2020 12:00:00 AM EDT 1.0 {tablet} activ e Labetalol HCl 100 MG eCW1 ([facility]) Labetalol hydrochloride 100 MG Oral Tablet Labetalol H Cl 100 MG Labetalol HCl 100 MG 11/24/2020 12:00:00 AM EDT 1.0 {tablet} suspe nded Labetalol HCl 100 MG eCW1 ([facility]ly [facility]) NITROFURANTOIN, MACROCRYSTALS 25 MG / Ni trofurantoin, Monohydrate 75 MG Oral Capsule [Macrobid] Macrobid 100 MG Macrobid 100 MG 09/24/2020 12:00:00 AM EST 1.0 {capsule} active Macrobid 100 MG eC W1 ([facility]) NITROFURANTOIN, MACROCRYSTALS 25 MG / Ni trofurantoin, Monohydrate 75 MG Oral Capsule [Macrobid] Macrobid 100 MG Macrobid 100 MG 09/24/2020 12:00:00 AM EST 1.0 {capsule} active Macrobid 100 MG eC W1 ([facility]ly [facility]) NITROFURANTOIN, MACROCRYSTALS 25 MG / Ni trofurantoin, Monohydrate 75 MG Oral Capsule [Macrobid] Macrobid 100 MG Macrobid 100 MG 09/24/2020 12:00:00 AM EST 1.0 {capsule} active Macrobid 100 MG eC W1 ([facility]) 100 mg 09/24/2020 12:00:00 AM EST capsule 14 TAKE ONE CAPSULE BY MOUTH TWICE A DAY FOR 7 DAYS TAKE ONE CAPSULE BY MOUTH TWICE A DAY FOR 7 DAYS SOLD: 09/24/2020 [facility] NITROFURANTOIN, MACROCRYSTALS 25 MG / Ni trofurantoin, Monohydrate 75 MG Oral Capsule [Macrobid] Macrobid 100 MG Macrobid 100 MG 09/24/2020 12:00:00 AM EST 1.0 {capsule} suspended Macrobid 100 MG eCW1 ([facility]) 81 mg 09/23/2020 12:00:00 AM EST tablet,delayed release (DR/EC) 30 TAKE ONE TABLET BY MOUTH EVERY DAY TAKE ONE TABLET BY MOUTH EVERY DAY SOLD: 09/24/2020 [facility] 81 mg 09/23/2020 12:00:00 AM EST tablet,delayed release (DR/EC) 30 TAKE ONE TABLET BY MOUTH EVERY DAY TAKE ONE TABLET BY MOUTH EVERY DAY SOLD: 11/06/2020 [facility] Aspirin 81 MG Delayed Release Oral Tablet Aspirin 81 81 MG A spirin 81 81 MG 09/22/2020 12:00:00 AM EST 1.0 {tablet} active Aspirin 81 81 MG eCW1 ([facility]) Aspirin 81 MG Delayed Release Oral Tablet Aspirin 81 81 MG A spirin 81 81 MG 09/22/2020 12:00:00 AM EST 1.0 {tablet} active Aspirin 81 81 MG eCW1 ([facility]) Aspirin 81 MG Delayed Release Oral Tablet Aspirin 81 81 MG A spirin 81 81 MG 09/22/2020 12:00:00 AM EST 1.0 {tablet} active Aspirin 81 81 MG eCW1 ([facility]) Aspirin 81 MG Delayed Release Oral Tablet Aspirin 81 81 MG A spirin 81 81 MG 09/22/2020 12:00:00 AM EST 1.0 {tablet} active Aspirin 81 81 MG eCW1 ([facility]) Aspirin 81 MG Delayed Release Oral Tablet Aspirin 81 81 MG A spirin 81 81 MG 09/22/2020 12:00:00 AM EST 1.0 {tablet} active Aspirin 81 81 MG eCW1 (Formerly [facility]) Insurance Providers Payer name Policy type / Coverage type Policy ID Covered democrat ID Covered democrat's relationship to hernandez Policy Hernandez Plan Information [facility] Medigap Part B [id number] [facility] [id number] SP [id number] [facility] Commercial [id number] Self [facility] [id number] SP [id number] [facility] [id number] SP [id number] [employer] [id number] Self [id number] [facility] [id number] ANSI-Medicaid [id number] ANSI-Medicaid [id number] ANSI-Medicaid [id number] [facility] [id number] [facility] O [id number] S [id number] [facility] Health Maintenance Organization ([facility]) [id number] Self [id number] Medicaid [place] Medigap Part B [id number] Self [facility] Health Maintenance Organization (O) [id number] Self MEDICAID [id number] SP [id number] MEDICAID M [id number] S [id number] AMERICHOICE UNHC XIX HMO -I/P [id number] 18 [id number] UNHC AMERICHOICE XIX -HMO [id number] 18 [id number] [facility] [id number] [facility] [id number] [facility] [id number] FA2 [id number] UNHC COMMUNITY PLAN [facility] [id number] SP [id number] UNHC COMMUNITY [facility] [id number] SP [id number] [facility] Health Maintenance Organization (HMO) [id number] Self [id number] ANSI-Medicaid [id number] [facility]-Medicaid [id number] Problems, Conditions, and Diagnoses Code Display Name Description Problem Type Effective Dates Data Source(s) O10.013 [id number] Essential hypertension affecting in third trimester Problem 02/05/2021 12:00:00 AM EDT eCW1 ([facility]) O10.913 [id number] Pre-existing hyperte nsion affecting in third trimester Problem 01/16/2021 12:00:00 AM EDT eCW1 ([facility]) O16.3 Maternal hypertension Hypertension affecting pre gnancy in third trimester Problem 01/09/2021 12:00:00 AM EDT eCW1 ([facility]) O10.919 [id number] Chronic hypertension affecting Problem 12/05/2020 12:00:00 AM EDT eCW1 ([facility]) O10.012 [id number] Essential hypertension affecting in second trimester Problem 11/23/2020 12:00:00 AM EDT eCW1 ([facility]) E66.01 [id number] Morbid obesity due to excess calories Pro blem 10/01/2020 12:00:00 AM EST eCW1 ([facility]) Z68.43 [id number] BMI 50.0-59.9, adult Problem 10/01/2020 12:0 0:00 AM EST eCW1 ([facility]) O99.212 [id number] Obesity complicating in second trimester Problem 09/21/2020 12:00:00 AM EST eCW1 ([facility]) Z34.80 care Supervision of other normal P roblem 08/16/2020 12:00:00 AM EST eCW1 ([facility]) Surgeries/Procedures No Information Results ID Date Data Source GROUP B STREP CULTURE 01/30/2021 12:00:00 AM EDT eCW1 ([facility]) Name Value Range Interpretation Code Description Data Corrina rce(s) Supporting Document(s) GROUP B STREP CULTURE eCW1 ([facility]) ID Date Data Source Glucose Challenge Test 1 Hour 12/11/2020 12:00:00 AM EDT eCW 1 ([facility]) Name Value Range Interpretation Code Description Data Corrina rce(s) Supporting Document(s) 113 LESS THAN 140 GLUCOSE CHALLENGE TEST 1 HOUR eCW1 ([facility]) ID Date Data Source CBC - Complete Blood Count 12/08/2020 12:00:00 AM EDT eCW1 ( [facility]) Name Value Range Interpretation Code Description Data Corrina rce(s) Supporting Document(s) 4.40 4.00-5.40 eCW1 ([facility]) 7.9 4.0-10.0 eCW1 ([facility]) 79.1 80.0-96.0 eCW1 ([facility]) 10.6 12.0-15.5 eCW1 ([facility]) 34.8 36.0-47.0 eCW1 ([facility]) 30.5 32.0-36.5 eCW1 ([facility]) 24.1 27.0-33.0 eCW1 ([facility]) 15.3 11.5-14.5 eCW1 ([facility]) 236 150-450 eCW1 ([facility]) ID Date Data Source Type and Screen (D Rh Antibody Screen) 12/08/2020 12:00:00 A M EDT eCW1 ([facility]) Name Value Range Interpretation Code Description Data Corrina rce(s) Supporting Document(s) O POSITIVE eCW1 ([facility]) NEGATIVE eCW1 ([facility]) ID Date Data Source WWBC OBS FOLLOW UP OR REPEAT 11/10/2020 12:00:00 AM EDT eCW1 ([facility]) Name Value Range Interpretation Code Description Data Corrina rce(s) Supporting Document(s) [facility] OBS FOLLOW UP OR REPEAT e CW1 ([facility]) ID Date Data Source Pre Eclampsia Profile 09/29/2020 12:00:00 AM EST eCW1 ([facility]) Name Value Range Interpretation Code Description Data Corrina rce(s) Supporting Document(s) 0.58 0.55-1.30 CREATININE FOR GFR eCW1 ([facility]) > 60.0 >60 GLOMERULAR FILTRATION RATE eCW 1 ([facility]) 8 7-37 AST/SGOT eCW1 ([facility]) 17 12-78 ALT/SGPT eCW1 ([facility]) 3.6 2.6-6.0 URIC ACID eCW1 ([facility]) 0.3 0.2-1.0 BILIRUBIN,TOTAL eCW1 ([facility]) 135 84-246 LDH LACTATE DEHYDROGENASE eCW1 ([facility]) ID Date Data Source URINE CULTURE 09/22/2020 12:00:00 AM EST eCW1 ([facility]) Name Value Range Interpretation Code Description Data Corrina rce(s) Supporting Document(s) URINE CULTURE eCW1 ([facility]) ID Date Data Source TOTAL PROTEIN,RANDOM URINE 09/22/2020 12:00:00 AM EST eCW1 ( [facility]) Name Value Range Interpretation Code Description Data Corrina rce(s) Supporting Document(s) 5.8 0.0-12.0 TOTAL PROTEIN,RANDOM URIN E eCW1 ([facility]) ID Date Data Source CREATININE,RANDOM URINE 09/22/2020 12:00:00 AM EST eCW1 ([facility]) Name Value Range Interpretation Code Description Data Corrina rce(s) Supporting Document(s) 116.0 CREATININE,RANDOM URINE eCW1 ( [facility]) ID Date Data Source [id number] 04/15/2020 12:00:00 AM EDT [facility] Name Value Range Interpretation Code Description Data Corrina rce(s) Supporting Document(s) SARS coronavirus 2 RNA [facility] This lab was ordered by [facility] and rep orted by [facility]. Procedure Social History Code Duration Value Status Description Data Source(s ) Smoking 04/04/2021 12:00:00 AM EDT Never Smoker completed Never S moker eCW1 ([facility]) Smoking 02/21/2021 12:00:00 AM EDT Never Smoker completed Never S moker eCW1 ([facility]) Smoking 02/21/2021 12:00:00 AM EDT Never Smoker completed Never S moker eCW1 ([facility]) Smoking 01/30/2021 12:00:00 AM EDT Never Smoker completed Never S moker eCW1 ([facility]) Smoking 01/17/2021 12:00:00 AM EDT Never Smoker completed Never S moker eCW1 ([facility]) Smoking 01/15/2021 12:00:00 AM EDT Never Smoker completed Never S moker eCW1 ([facility]) Smoking 01/02/2021 12:00:00 AM EDT Never Smoker completed Never S moker eCW1 ([facility]) Smoking 12/15/2020 12:00:00 AM EDT Never Smoker completed Never S moker eCW1 ([facility]) Smoking 12/07/2020 12:00:00 AM EDT Never Smoker completed Never S moker eCW1 ([facility]) Smoking 12/07/2020 12:00:00 AM EDT Never Smoker completed Never S moker eCW1 ([facility]) Smoking 11/24/2020 12:00:00 AM EDT Never Smoker completed Never S moker eCW1 ([facility]) Smoking 10/27/2020 12:00:00 AM EDT Never Smoker completed Never S moker eCW1 ([facility]) Smoking 09/18/2020 12:00:00 AM EST Never Smoker completed Never S moker eCW1 ([facility]) Smoking 09/18/2020 12:00:00 AM EST Never Smoker completed Never S moker eCW1 ([facility]) Smoking 09/18/2020 12:00:00 AM EST Never Smoker completed Never S moker eCW1 ([facility]) Smoking 08/16/2020 12:00:00 AM EST Never Smoker completed Never S moker eCW1 ([facility]) Vital Signs ID Date Data Source UNK Name Value Range Interpretation Code Description Data Source(s) Body weight 292.2 [lb_av] 292.2 [lb_av] eCW1 ([facility]) Body height 62 [in_i] 62 [in_i] W1 ([facility]) Body mass index (BMI) [Ratio] 53.44 kg/m2 53.44 kg/m2 eCW1 ([facility]) Systolic blood pressure 130 mm[Hg] 130 mm[Hg] e CW1 ([facility]) Diastolic blood pressure 84 mm[Hg] 84 mm[Hg] eCW1 ([facility]) Body weight 283.6 [lb_av] 283.6 [lb_av] eCW1 ([facility]) Systolic blood pressure 120 mm[Hg] 120 mm[Hg] e CW1 ([facility]) Diastolic blood pressure 78 mm[Hg] 78 mm[Hg] eCW1 ([facility]) Body weight 128.64 kg 128.64 kg eCW1 ([facility]) Body height 62 [in_i] 62 [in_i] eCW1 ([facility]) Body mass index (BMI) [Ratio] 51.87 kg/m2 51.87 kg/m2 eCW1 ([facility]) Body weight 305.5 [lb_av] 305.5 [lb_av] eCW1 ([facility]) Body weight 138.57 kg 138.57 kg eCW1 (Formerly [facility]) Body height 62 [in_i] 62 [in_i] eCW1 (Formerly [facility]) Body mass index (BMI) [Ratio] 55.877 kg/m2 55.8 77 kg/m2 eCW1 (Formerly [facility]) Systolic blood pressure 140 mm[Hg] 140 mm[Hg] e CW1 (Formerly [facility]) Diastolic blood pressure 80 mm[Hg] 80 mm[Hg] eCW1 (Formerly [facility]) Body weight 303 [lb_av] 303 [lb_av] eCW1 ([facility]) Body height 62 [in_i] 62 [in_i] eCW1 (Formerly [facility]) Body mass index (BMI) [Ratio] 55.41 kg/m2 55.41 kg/m2 eCW1 (Formerly [facility]) Systolic blood pressure 126 mm[Hg] 126 mm[Hg] e CW1 (Formerly [facility]) Diastolic blood pressure 80 mm[Hg] 80 mm[Hg] eCW1 ([facility] [facility] Body height 62 [in_i] 62 [in_i] eCW1 (Formerly [facility]) Body weight 303 [lb_av] 303 [lb_av] eCW1 ([facility]) Body mass index (BMI) [Ratio] 55.419 kg/m2 55.4 19 kg/m2 eCW1 (Formerly [facility]) Systolic blood pressure 132 mm[Hg] 132 mm[Hg] e CW1 (Formerly [facility]) Diastolic blood pressure 72 mm[Hg] 72 mm[Hg] eCW1 (Formerly [facility]) Body weight 303 [lb_av] 303 [lb_av] eCW1 ([facility]) Body height 62 [in_i] 62 [in_i] eCW1 (Formerly [facility]) Body mass index (BMI) [Ratio] 55.419 kg/m2 55.4 19 kg/m2 eCW1 (Formerly [facility]) Systolic blood pressure 136 mm[Hg] 136 mm[Hg] e CW1 (Formerly [facility]) Diastolic blood pressure 84 mm[Hg] 84 mm[Hg] eCW1 (Formerly [facility]) Body weight 305.6 [lb_av] 305.6 [lb_av] eCW1 ([facility]) Body height 62 [in_i] 62 [in_i] eCW1 (Formerly [facility]) Body mass index (BMI) [Ratio] 55.895 kg/m2 55.8 95 kg/m2 eCW1 (Formerly [facility]) Systolic blood pressure 134 mm[Hg] 134 mm[Hg] e CW1 (Formerly [facility]) Diastolic blood pressure 78 mm[Hg] 78 mm[Hg] eCW1 (Formerly [facility]) Body weight 305.8 [lb_av] 305.8 [lb_av] eCW1 ([facility]) Body weight 138.71 kg 138.71 kg eCW1 (Formerly [facility]) Body height 62 [in_i] 62 [in_i] eCW1 (Formerly [facility]) Body mass index (BMI) [Ratio] 55.932 kg/m2 55.9 32 kg/m2 eCW1 (Formerly [facility]) Systolic blood pressure 132 mm[Hg] 132 mm[Hg] e CW1 ([facility]ly [facility]) Diastolic blood pressure 76 mm[Hg] 76 mm[Hg] eCW1 (Formerly [facility]) Body weight 303.4 [lb_av] 303.4 [lb_av] eCW1 ([facility]) Body weight 137.62 kg 137.62 kg eCW1 (Formerly [facility]) Body height 62 [in_i] 62 [in_i] eCW1 (Formerly [facility]) Body mass index (BMI) [Ratio] 55.493 kg/m2 55.4 93 kg/m2 eCW1 ([facility]ly [facility]) Systolic blood pressure 160 mm[Hg] 160 mm[Hg] e CW1 ([facility]ly [facility]) Diastolic blood pressure 80 mm[Hg] 80 mm[Hg] eCW1 ([facility]ly [facility]) Body weight 303.8 [lb_av] 303.8 [lb_av] eCW1 ([facility]) Body height 62 [in_i] 62 [in_i] eCW1 (Formerly [facility]) Body mass index (BMI) [Ratio] 55.566 kg/m2 55.5 66 kg/m2 eCW1 (Formerly [facility]) Systolic blood pressure 132 mm[Hg] 132 mm[Hg] e CW1 ([facility]ly [facility]) Diastolic blood pressure 76 mm[Hg] 76 mm[Hg] eCW1 (Formerly [facility]) Body weight 301 [lb_av] 301 [lb_av] eCW1 ([facility]) Body height 62 [in_i] 62 [in_i] eCW1 (Formerly [facility]) Body mass index (BMI) [Ratio] 55.054 kg/m2 55.0 54 kg/m2 eCW1 (Formerly [facility]) Systolic blood pressure 140 mm[Hg] 140 mm[Hg] e CW1 ([facility]ly [facility]) Diastolic blood pressure 80 mm[Hg] 80 mm[Hg] eCW1 ([facility]ly [facility]) Body weight 296 [lb_av] 296 [lb_av] eCW1 ([facility]) Body height 62 [in_i] 62 [in_i] eCW1 (Formerly [facility]) Body mass index (BMI) [Ratio] 54.139 kg/m2 54.1 39 kg/m2 eCW1 (Formerly [facility]) Systolic blood pressure 126 mm[Hg] 126 mm[Hg] e CW1 (Formerly [facility]) Diastolic blood pressure 86 mm[Hg] 86 mm[Hg] eCW1 (Formerly [facility]) Patient Treatment Plan of Care Planned Activity Planned Date Details Description Data Source (s) ferrous gluconate 324 MG Oral Tablet 12/11/2020 12:00:00 AM EDT eCW1 (Formerly [facility]) Docusate Sodium 100 MG Oral Tablet 12/11/2020 12:00:00 AM EDT eCW1 (Formerly [facility]) ferrous gluconate 324 MG Oral Tablet 12/11/2020 12:00:00 AM EDT eCW1 (Formerly [facility]) Docusate Sodium 100 MG Oral Tablet 12/11/2020 12:00:00 AM EDT eCW1 (Formerly [facility]) ferrous gluconate 324 MG Oral Tablet 12/11/2020 12:00:00 AM EDT eCW1 (Formerly [facility]) Docusate Sodium 100 MG Oral Tablet 12/11/2020 12:00:00 AM EDT eCW1 (Formerly [facility]) Labetalol hydrochloride 100 MG Oral Tablet 11/24/2020 12:00:00 AM E DT eCW1 (Formerly [facility]) NITROFURANTOIN, MACROCRYSTALS 25 MG / Ni trofurantoin, Monohydrate 75 MG Oral Capsule [Macrobid] 09/24/2020 12:00:00 AM EST eC W1 (Formerly [facility]) NITROFURANTOIN, MACROCRYSTALS 25 MG / Ni trofurantoin, Monohydrate 75 MG Oral Capsule [Macrobid] 09/24/2020 12:00:00 AM EST eC W1 (Formerly [facility]) Aspirin 81 MG Delayed Release Oral Tablet 09/22/2020 12:00:00 AM ES T eCW1 (Formerly [facility]) Aspirin 81 MG Delayed Release Oral Tablet 09/22/2020 12:00:00 AM ES T eCW1 (Formerly [facility]) Aspirin 81 MG Delayed Release Oral Tablet 09/22/2020 12:00:00 AM ES T eCW1 (Formerly [facility])
[2021-05-29] MEDS ORDERED: CLIN150C17 PO (17:35)
[2021-05-29] MEDS ORDERED: POLYSOL OS (17:35)
[2021-05-29 18:04] VITALS: BP 135/87
== END 2021-05-29 18:07 | disposition home or self-care (01) ==
LOC: M ED 15:12
DX: H02.845 Edema of left lower eyelid (principal); H10.32 Unspecified acute conjunctivitis, left eye; Z86.16 Personal history of COVID-19

== ENCOUNTER 2021-06-17 20:08 | Emergency (ER) | payer OTHER ==
[~2021-06-17] VITALS: Ht 157.5 cm; Wt 135.0 kg
[2021-06-17 20:08] VITALS: BP 154/82
[~2021-06-17 20:08] MED LIST changes: +CLIN150C17 PO; +POLYSOL OS
--- OUTSIDE RECORDS SUMMARY | 2021-06-17 20:18 | CCD ---
Author Author [facility] Organization [facility] Address Unknown Phone Unavailable Care Team Providers Care Procedure Tech Name Role Phone Maren Pederson PA Unavailable [...] is protected by Article 27-F of the [facility] Public Health law. If you continue you may have access to information: Regarding HIV / AIDS; Provided by facilities licensed or operated by the [facility] Office of Mental Health; or Provided by the [facility] Office for People With Developmental Disabilities. If such information is present, then the following [facility] mandated warning applies: This information has [...] law may result in a fine or prison sentence or both. A general authorization for [...] Date Indications Data Source(s ) ( ESTOB) [facility] OB [address] [place] [address] 04/04/2021 12:00:00 AM EDT eCW1 ([facility]) Outpatient Attender: Marissa LUNDBERG 021 04:27:56 PM EDT - 03/20/2021 05:20:06 PM EDT [facility] ([facility] ) ( ESTOB) [facility] OB [address] [place] [address] 02/21/2021 12:00:00 AM EDT eCW1 ([facility]) ( COB) [facility] [place] [address] [place] [address] 02/07/2021 12:00:00 AM EDT eCW1 ([facility]) ( ESTOB) [facility] OB [address] [place] [address] 01/30/2021 12:00:00 AM EDT eCW1 ([facility]) ( ESTOB) [facility] OB [address] [place] [address] 01/16/2021 12:00:00 AM EDT eCW1 ([facility]) (WC ESTOB) [facility] [address] [place] [address] 01/09/2021 12:00:00 AM EDT eCW1 ([facility]) (WC ESTOB) [facility] [address] [place] [address] 12/22/2020 12:00:00 AM EDT eCW1 ([facility]) [place] [address] [facility] [address] 12/11/2020 12:00:00 AM EDT eCW1 ([facility]) (WC ESTOB) [facility] [address] [place] [address] 12/08/2020 12:00:00 AM EDT eCW1 ([facility]) (WC ESTOB) [facility] [address] [place] [address] 12/05/2020 12:00:00 AM EDT eCW1 ([facility]) (WC ESTOB) [facility] [address] [place] [address] 11/24/2020 12:00:00 AM EDT eCW1 ([facility]) (WC ESTOB) [facility] [address] [place] [address] 10/27/2020 12:00:00 AM EDT eCW1 ([facility]) [place] [address] [facility] [address] 09/24/2020 12:00:00 AM EST eCW1 ([facility]) (WC ESTOB) [facility] [address] [place] [address] 09/22/2020 12:00:00 AM EST eCW1 ([facility]) [place] [address] [facility] [address] 09/20/2020 12:00:00 AM EST eCW1 ([facility]) (WC ESTOB) [facility] [address] [place] [address] 08/16/2020 12:00:00 AM EST eCW1 ([facility]) Immunizations Vaccine Date Status Description Data Source(s) COVID-19 VACCINE Pfizer 05/20/2021 12:00:00 AM EDT completed [facility] Vaccine Series Complete: YESThis Data wa s Submitted to [facility] Via [facility]. COVID-19 VACC, MRNA(PFIZER)/PF 05/20/2021 12:00:00 AM EDT completed [facility] COVID-19 VACC, MRNA(PFIZER)/PF 04/29/2021 12:00:00 AM EDT completed [facility] COVID-19 VACCINE Pfizer 04/29/2021 12:00:00 AM EDT completed [facility] Vaccine Series Complete: NOThis Data was Submitted to [facility] Via [employer]. Medications Medication Brand Name Start Date Product Form Dose Route Admi nistrative Instructions Pharmacy Instructions Status Indications Reaction Description Data Source(s) Polymyxin B 82922 UNT/ML / Trimethoprim 1 MG/ML Ophthalmic Solution 10,000 unit- 1 mg/mL POLYMYXIN B SULF/TRIMETHOPRIM 05/29/2021 12:00:00 AM EDT drops 1 0 INSTILL 1-2 DROPS IN THE LEFT EYE EVERY 6 HOURS FOR 7 DAYS INSTILL 1-2 DROPS IN THE LEFT EYE EVERY 6 HOURS FOR 7 DAYS SOLD: 05/29/2021 [facility] Clindamycin 150 MG Oral Capsule CLINDAMYCIN HCL 05/29/2021 12:00 :00 AM EDT capsule 60 TAKE TWO CAPSULES BY MOUTH THREE TIMES A DAY TAKE TWO CAPSULES BY MOUTH THREE TIMES A DAY SOLD: 05/29/2021 [facility] 800-160 mg 03/20/2021 12:00:00 AM EDT tablet [...] EDT active Stool Softener 100 MG eCW1 ([facility]) ferrous gluconate 324 MG Oral Tablet Ferrous Gluconate 324 (38 Fe) MG Ferrous Gluconate 324 (38 Fe) MG 12/11/2020 12:00:00 AM EDT active eCW1 ([facility]) Docusate Sodium 100 MG Oral Tablet Stool Softener 100 MG Sto ol Softener 100 MG 12/11/2020 12:00:00 AM EDT active Stool Softener 100 MG eCW1 ([facility]) Docusate Sodium 100 MG Oral Tablet Stool Softener 100 MG Sto ol Softener 100 MG 12/11/2020 12:00:00 AM EDT suspended Stool Softener 100 MG eCW1 ([facility]) ferrous gluconate 324 MG Oral Tablet Ferrous Gluconate 324 (38 Fe) MG Ferrous Gluconate 324 (38 Fe) MG 12/11/2020 12:00:00 AM EDT active Ferrous Gluconate 324 (38 Fe) MG eCW1 ([facility]) ferrous gluconate 324 MG Oral Tablet Ferrous Gluconate 324 (38 Fe) MG Ferrous Gluconate 324 (38 Fe) MG 12/11/2020 12:00:00 AM EDT suspended Ferrous Gluconate 324 (38 Fe) MG eCW1 ([facility]) ferrous gluconate 324 MG Oral Tablet Ferrous Gluconate 324 (38 Fe) MG Ferrous Gluconate 324 (38 Fe) MG 12/11/2020 12:00:00 AM EDT suspended Ferrous Gluconate 324 (38 Fe) MG eCW1 ([facility]) ferrous gluconate 324 MG Oral Tablet Ferrous Gluconate 324 (38 Fe) MG Ferrous Gluconate 324 (38 Fe) MG 12/11/2020 12:00:00 AM EDT active Ferrous Gluconate 324 (38 Fe) MG eCW1 ([facility]) Docusate Sodium 100 MG Oral Tablet Stool Softener 100 MG Sto ol Softener 100 MG 12/11/2020 12:00:00 AM EDT active Stool Softener 100 MG eCW1 ([facility]) Docusate Sodium 100 MG Oral Tablet Stool Softener 100 MG Sto ol Softener 100 MG 12/11/2020 12:00:00 AM EDT active Stool Softener 100 MG eCW1 ([facility]) ferrous gluconate 324 MG Oral Tablet Ferrous Gluconate 324 (38 Fe) MG Ferrous Gluconate 324 (38 Fe) MG 12/11/2020 12:00:00 AM EDT active Ferrous Gluconate 324 (38 Fe) MG eCW1 ([facility]) Docusate Sodium 100 MG Oral Tablet Stool Softener 100 MG Sto ol Softener 100 MG 12/11/2020 12:00:00 AM EDT active Stool Softener 100 MG eCW1 ([facility]) Docusate Sodium 100 MG Oral Tablet Stool Softener 100 MG Sto ol Softener 100 MG 12/11/2020 12:00:00 AM EDT suspended Stool Softener 100 MG eCW1 ([facility]) ferrous gluconate 324 MG Oral Tablet Ferrous Gluconate 324 (38 Fe) MG Ferrous Gluconate 324 (38 Fe) MG 12/11/2020 12:00:00 AM EDT active Ferrous Gluconate 324 (38 Fe) MG eCW1 ([facility]) 324 mg (38 mg iron) 12/11/2020 12:00:00 AM EDT tablet 60 TAKE ONE TABLET BY MOUTH TWICE A DAY WITH WATER OR JUICE BETWEEN MEALS TAKE ONE TABLET BY MOUTH TWICE A DAY WITH WATER OR JUICE BETWEEN MEALS SOLD: 12/14/2020 [facility] ferrous gluconate 324 MG Oral Tablet Ferrous Gluconate 324 (38 Fe) MG Ferrous Gluconate 324 (38 Fe) MG 12/11/2020 12:00:00 AM EDT active Ferrous Gluconate 324 (38 Fe) MG eCW1 ([facility]) ferrous gluconate 324 MG Oral Tablet Ferrous Gluconate 324 (38 Fe) MG Ferrous Gluconate 324 (38 Fe) MG 12/11/2020 12:00:00 AM EDT suspended Ferrous Gluconate 324 (38 Fe) MG eCW1 ([facility]) Docusate Sodium 100 MG Oral Tablet Stool Softener 100 MG Sto ol Softener 100 MG 12/11/2020 12:00:00 AM EDT active Stool Softener 100 MG eCW1 ([facility]) 100 mg 12/11/2020 12:00:00 AM EDT capsule 60 TAKE ONE CAPSULE BY MOUTH TWICE A DAY NEEDED FOR CONSTIPATION TAKE ONE CAPSULE BY MOUTH TWICE A DAY NEEDED FOR CONSTIPATION SOLD: 12/14/2020 [facility] Docusate Sodium 100 MG Oral Tablet Stool Softener 100 MG Sto ol Softener 100 MG 12/11/2020 12:00:00 AM EDT active eCW1 ([facility]) ferrous gluconate 324 MG Oral Tablet Ferrous Gluconate 324 (38 Fe) MG Ferrous Gluconate 324 (38 Fe) MG 12/11/2020 12:00:00 AM EDT active Ferrous Gluconate 324 (38 Fe) MG eCW1 ([facility]) Docusate Sodium 100 MG Oral Tablet Stool Softener 100 MG Sto ol Softener 100 MG 12/11/2020 12:00:00 AM EDT suspended Stool Softener 100 MG eCW1 ([facility]) Labetalol hydrochloride 100 MG Oral Tablet Labetalol H Cl 100 MG Labetalol HCl 100 MG 11/24/2020 12:00:00 AM EDT 1.0 {tablet} activ e Labetalol HCl 100 MG eCW1 ([facility]) Labetalol hydrochloride 100 MG Oral Tablet Labetalol H Cl 100 MG Labetalol HCl 100 MG 11/24/2020 12:00:00 AM EDT 1.0 {tablet} suspe nded Labetalol HCl 100 MG eCW1 ([facility]) 100 mg 11/24/2020 12:00:00 AM EDT tablet 60 TAKE ONE TABLET BY MOUTH TWICE A DAY TAKE ONE TABLET BY MOUTH TWICE A DAY SOLD: 11/25/2020 [facility] Labetalol hydrochloride 100 MG Oral Tablet Labetalol H Cl 100 MG Labetalol HCl 100 MG 11/24/2020 12:00:00 AM EDT 1.0 {tablet} activ e Labetalol HCl 100 MG eCW1 ([facility]) Labetalol hydrochloride 100 MG Oral Tablet Labetalol H Cl 100 MG Labetalol HCl 100 MG 11/24/2020 12:00:00 AM EDT 1.0 {tablet} suspe nded Labetalol HCl 100 MG eCW1 ([facility]) Labetalol hydrochloride 100 MG Oral Tablet Labetalol H Cl 100 MG Labetalol HCl 100 MG 11/24/2020 12:00:00 AM EDT 1.0 {tablet} activ e Labetalol HCl 100 MG eCW1 ([facility]) Labetalol hydrochloride 100 MG Oral Tablet Labetalol H Cl 100 MG Labetalol HCl 100 MG 11/24/2020 12:00:00 AM EDT 1.0 {tablet} activ e Labetalol HCl 100 MG eCW1 ([facility]) Labetalol hydrochloride 100 MG Oral Tablet Labetalol H Cl 100 MG Labetalol HCl 100 MG 11/24/2020 12:00:00 AM EDT 1.0 {tablet} activ e Labetalol HCl 100 MG eCW1 ([facility]) Labetalol hydrochloride 100 MG Oral Tablet Labetalol H Cl 100 MG Labetalol HCl 100 MG 11/24/2020 12:00:00 AM EDT 1.0 {tablet} activ e Labetalol HCl 100 MG eCW1 ([facility]) Labetalol hydrochloride 100 MG Oral Tablet LABETALOL HCL 11/24/2020 12:00:00 AM EDT tablet 60 TAKE ONE TABLET BY MOUTH TWI CE A DAY TAKE ONE TABLET BY MOUTH TWICE A DAY SOLD: 01/10/2021 [facility] Labetalol hydrochloride 100 MG Oral Tablet Labetalol H Cl 100 MG Labetalol HCl 100 MG 11/24/2020 12:00:00 AM EDT 1.0 {tablet} active eCW1 ([facility]) Labetalol hydrochloride 100 MG Oral Tablet Labetalol H Cl 100 MG Labetalol HCl 100 MG 11/24/2020 12:00:00 AM EDT 1.0 {tablet} activ e Labetalol HCl 100 MG eCW1 ([facility]) Labetalol hydrochloride 100 MG Oral Tablet Labetalol H Cl 100 MG Labetalol HCl 100 MG 11/24/2020 12:00:00 AM EDT 1.0 {tablet} suspe nded Labetalol HCl 100 MG eCW1 ([facility]) NITROFURANTOIN, MACROCRYSTALS 25 MG / Ni trofurantoin, Monohydrate 75 MG Oral Capsule [Macrobid] Macrobid 100 MG Macrobid 100 MG 09/24/2020 12:00:00 AM EST 1.0 {capsule} active Macrobid 100 MG eC W1 ([facility]) NITROFURANTOIN, MACROCRYSTALS 25 MG / Ni trofurantoin, Monohydrate 75 MG Oral Capsule [Macrobid] Macrobid 100 MG Macrobid 100 MG 09/24/2020 12:00:00 AM EST 1.0 {capsule} active Macrobid 100 MG eC W1 ([facility]) NITROFURANTOIN, MACROCRYSTALS 25 MG / Ni trofurantoin, Monohydrate 75 MG Oral Capsule [Macrobid] Macrobid 100 MG Macrobid 100 MG 09/24/2020 12:00:00 AM EST 1.0 {capsule} active Macrobid 100 MG eC W1 ([facility]) 100 mg 09/24/2020 12:00:00 AM EST capsule 14 TAKE ONE CAPSULE BY MOUTH TWICE A DAY FOR 7 DAYS TAKE ONE CAPSULE BY MOUTH TWICE A DAY FOR 7 DAYS SOLD: 09/24/2020 [facility] NITROFURANTOIN, MACROCRYSTALS 25 MG / Ni trofurantoin, Monohydrate 75 MG Oral Capsule [Macrobid] Macrobid 100 MG Macrobid 100 MG 09/24/2020 12:00:00 AM EST 1.0 {capsule} suspended Macrobid 100 MG eCW1 ([facility]) 81 mg 09/23/2020 12:00:00 AM EST tablet,delayed release (DR/EC) 30 TAKE ONE TABLET BY MOUTH EVERY DAY TAKE ONE TABLET BY MOUTH EVERY DAY SOLD: 09/24/2020 [facility] 81 mg 09/23/2020 12:00:00 AM EST tablet,delayed release (DR/EC) 30 TAKE ONE TABLET BY MOUTH EVERY DAY TAKE ONE TABLET BY MOUTH EVERY DAY SOLD: 11/06/2020 [facility] Aspirin 81 MG Delayed Release Oral Tablet Aspirin 81 81 MG A spirin 81 81 MG 09/22/2020 12:00:00 AM EST 1.0 {tablet} active Aspirin 81 81 MG eCW1 ([facility]) Aspirin 81 MG Delayed Release Oral Tablet Aspirin 81 81 MG A spirin 81 81 MG 09/22/2020 12:00:00 AM EST 1.0 {tablet} active Aspirin 81 81 MG eCW1 ([facility]) Aspirin 81 MG Delayed Release Oral Tablet Aspirin 81 81 MG A spirin 81 81 MG 09/22/2020 12:00:00 AM EST 1.0 {tablet} active Aspirin 81 81 MG eCW1 ([facility]) Aspirin 81 MG Delayed Release Oral Tablet Aspirin 81 81 MG A spirin 81 81 MG 09/22/2020 12:00:00 AM EST 1.0 {tablet} active Aspirin 81 81 MG eCW1 ([facility]) Aspirin 81 MG Delayed Release Oral Tablet Aspirin 81 81 MG A spirin 81 81 MG 09/22/2020 12:00:00 AM EST 1.0 {tablet} active Aspirin 81 81 MG eCW1 ([facility]) Insurance Providers Payer name Policy type / Coverage type Policy ID Covered republican ID Covered republican's relationship to hernandez Policy Hernandez Plan Information [employer] Federal Service Medigap Part B [id number] [facility] COMM[facility]AN [facility] [id number] SP [id number] [facility] Community Plan Commercial [id number] Self [facility] MCDO [id number] SP [id number] [facility] [id number] SP [id number] [facility] Commercial Insurance Co. [id number] Self [id number] ANSI-Medicaid [id number] ANSI-Medicaid [id number] ANSI-Medicaid [id number] [facility] [id number] [facility] O [id number] S [id number] [facility] Health Maintenance Organization ([facility]) [id number] Self [id number] Medicaid [place] Medigap Part B [id number] Self [facility] Maintenance [facility] ([facility]) [id number] Self MEDICAID [id number] SP [id number] MEDICAID M [id number] S [id number] AMERICHOICE UNHC XIX HMO -I/P [id number] 18 [id number] UNHC AMERICHOICE XIX -HMO [id number] 18 [id number] [facility] [id number] [id number] [facility] [id number] FA2 [id number] [employer]HC COMMUNITY PLAN MCDO [id number] SP [id number] [facility] COMMUNITY PLAN [facility] [id number] SP [id number] [facility] Health Maintenance [facility] ([facility]) [id number] Self [id number] ANSI-Medicaid [id number] ANSI-Medicaid [id number] ANSI-Medicaid [id number] Problems, Conditions, and Diagnoses Code Display Name Description Problem Type Effective Dates Data Source(s) O10.013 [id number] Essential hypertension affecting in third trimester Problem 02/05/2021 12:00:00 AM EDT eCW1 ([facility]) O10.913 [id number] Pre-existing hyperte nsion affecting in third trimester Problem 01/16/2021 12:00:00 AM EDT eCW1 ([facility]) O16.3 Maternal hypertension Hypertension affecting pre gnancy in third trimester Problem 01/09/2021 12:00:00 AM EDT eCW1 ([facility]) O10.919 [id number] Chronic hypertension affecting Problem 12/05/2020 12:00:00 AM EDT eCW1 ([facility]) O10.012 28679376 Essential hypertension affecting in second trimester Problem 11/23/2020 12:00:00 AM EDT eCW1 ([facility]) E66.01 [id number] Morbid obesity due to excess calories Pro blem 10/01/2020 12:00:00 AM EST eCW1 ([facility]) Z68.43 [id number] BMI 50.0-59.9, adult Problem 10/01/2020 12:0 0:00 AM EST eCW1 ([facility]) O99.212 [id number] Obesity complicating in second trimester Problem 09/21/2020 12:00:00 AM EST eCW1 ([facility]) Z34.80 care Supervision of other normal P roblem 08/16/2020 12:00:00 AM EST eCW1 ([facility]) Surgeries/Procedures No Information Results ID Date Data Source 707 05/27/2021 12:00:00 AM EDT [place] Name Value Range Interpretation Code Description Data Corrina rce(s) Supporting Document(s) SARS-CoV2 Rapid Antigen Positive [facility] This lab was ordered by [facility] and reported by [facility]. ID Date Data Source GROUP B STREP CULTURE 01/30/2021 12:00:00 AM EDT eCW1 ([facility]) Name Value Range Interpretation Code Description Data Corrina rce(s) Supporting Document(s) GROUP B STREP CULTURE eCW1 ([facility]) ID Date Data Source Glucose Challenge Test 1 Hour 12/11/2020 12:00:00 AM EDT eCW 1 ([facility]) Name Value Range Interpretation Code Description Data Corrina rce(s) Supporting Document(s) 113 LESS THAN 140 GLUCOSE CHALLENGE TEST 1 HOUR eCW1 ([facility]) ID Date Data Source CBC - Complete Blood Count 12/08/2020 12:00:00 AM EDT eCW1 ( [facility]) Name Value Range Interpretation Code Description Data Corrina rce(s) Supporting Document(s) 4.40 4.00-5.40 eCW1 ([facility]) 7.9 4.0-10.0 eCW1 ([facility]) 79.1 80.0-96.0 eCW1 ([facility]) 10.6 12.0-15.5 eCW1 ([facility]) 34.8 36.0-47.0 eCW1 ([facility]) 30.5 32.0-36.5 eCW1 ([facility]) 24.1 27.0-33.0 eCW1 ([facility]) 15.3 11.5-14.5 eCW1 ([facility]) 236 150-450 eCW1 ([facility]) ID Date Data Source Type and Screen (D Rh Antibody Screen) 12/08/2020 12:00:00 A M EDT eCW1 ([facility]) Name Value Range Interpretation Code Description Data Corrina rce(s) Supporting Document(s) O POSITIVE eCW1 ([facility]) NEGATIVE eCW1 ([facility]) ID Date Data Source WWBC OBS FOLLOW UP OR REPEAT 11/10/2020 12:00:00 AM EDT eCW1 ([facility]) Name Value Range Interpretation Code Description Data Corrina rce(s) Supporting Document(s) WWBC OBS FOLLOW UP OR REPEAT e CW1 ([facility]) ID Date Data Source Pre Eclampsia Profile 09/29/2020 12:00:00 AM EST eCW1 ([facility]) Name Value Range Interpretation Code Description Data Corrina rce(s) Supporting Document(s) 0.58 0.55-1.30 CREATININE FOR GFR eCW1 ([facility]) > 60.0 >60 GLOMERULAR FILTRATION RATE eCW 1 ([facility]) 8 7-37 AST/SGOT eCW1 ([facility]) 17 12-78 ALT/SGPT eCW1 ([facility]) 3.6 2.6-6.0 URIC ACID eCW1 ([facility]) 0.3 0.2-1.0 BILIRUBIN,TOTAL eCW1 ([facility]) 135 84-246 LDH LACTATE DEHYDROGENASE eCW1 ([facility]) ID Date Data Source URINE CULTURE 09/22/2020 12:00:00 AM EST eCW1 ([facility]) Name Value Range Interpretation Code Description Data Corrina rce(s) Supporting Document(s) URINE CULTURE eCW1 ([facility]) ID Date Data Source TOTAL PROTEIN,RANDOM URINE 09/22/2020 12:00:00 AM EST eCW1 ( [facility]) Name Value Range Interpretation Code Description Data Corrina rce(s) Supporting Document(s) 5.8 0.0-12.0 TOTAL PROTEIN,RANDOM URIN E eCW1 ([facility]) ID Date Data Source CREATININE,RANDOM URINE 09/22/2020 12:00:00 AM EST eCW1 ([facility]) Name Value Range Interpretation Code Description Data Corrina rce(s) Supporting Document(s) 116.0 CREATININE,RANDOM URINE eCW1 ( [facility]) Procedure Social History Code Duration Value Status Description Data Source(s ) Smoking 04/04/2021 12:00:00 AM EDT Never Smoker completed Never S moker eCW1 ([facility]) Smoking 02/21/2021 12:00:00 AM EDT Never Smoker completed Never S moker eCW1 ([facility]) Smoking 02/21/2021 12:00:00 AM EDT Never Smoker completed Never S moker eCW1 ([facility]) Smoking 01/30/2021 12:00:00 AM EDT Never Smoker completed Never S moker eCW1 ([facility]) Smoking 01/17/2021 12:00:00 AM EDT Never Smoker completed Never S moker eCW1 ([facility]) Smoking 01/15/2021 12:00:00 AM EDT Never Smoker completed Never S moker eCW1 ([facility]) Smoking 01/02/2021 12:00:00 AM EDT Never Smoker completed Never S moker eCW1 ([facility]) Smoking 12/15/2020 12:00:00 AM EDT Never Smoker completed Never S moker eCW1 ([facility]) Smoking 12/07/2020 12:00:00 AM EDT Never Smoker completed Never S moker eCW1 ([facility]) Smoking 12/07/2020 12:00:00 AM EDT Never Smoker completed Never S moker eCW1 ([facility]) Smoking 11/24/2020 12:00:00 AM EDT Never Smoker completed Never S moker eCW1 ([facility]) Smoking 10/27/2020 12:00:00 AM EDT Never Smoker completed Never S moker eCW1 ([facility]) Smoking 09/18/2020 12:00:00 AM EST Never Smoker completed Never S moker eCW1 ([facility]) Smoking 09/18/2020 12:00:00 AM EST Never Smoker completed Never S moker eCW1 ([facility]) Smoking 09/18/2020 12:00:00 AM EST Never Smoker completed Never S moker eCW1 ([facility]) Smoking 08/16/2020 12:00:00 AM EST Never Smoker completed Never S moker eCW1 ([facility]) Vital Signs ID Date Data Source UNK Name Value Range Interpretation Code Description Data Source(s) Body weight 292.2 [lb_av] 292.2 [lb_av] eCW1 [facility] Body height 62 [in_i] 62 [in_i] eCW1 ([facility]) Body mass index (BMI) [Ratio] 53.44 kg/m2 53.44 kg/m2 eCW1 ([facility]) Systolic blood pressure 130 mm[Hg] 130 mm[Hg] e CW1 ([facility]) Diastolic blood pressure 84 mm[Hg] 84 mm[Hg] eCW1 ([facility]) Systolic blood pressure 120 mm[Hg] 120 mm[Hg] e CW1 ([facility]) Diastolic blood pressure 78 mm[Hg] 78 mm[Hg] eCW1 ([facility]) Body weight 283.6 [lb_av] 283.6 [lb_av] eCW1 [facility] Body weight 128.64 kg 128.64 kg eCW1 ([facility]) Body height 62 [in_i] 62 [in_i] eCW1 ([facility]) Body mass index (BMI) [Ratio] 51.87 kg/m2 51.87 kg/m2 W1 ([facility]) Body weight 305.5 [lb_av] 305.5 [lb_av] eCW1 ([facility]) Body weight 138.57 kg 138.57 kg eCW1 ([facility]) Body height 62 [in_i] 62 [in_i] eCW1 ([facility]) Body mass index (BMI) [Ratio] 55.877 kg/m2 55.8 77 kg/m2 W1 ([facility]) Systolic blood pressure 140 mm[Hg] 140 mm[Hg] e CW1 ([facility]) Diastolic blood pressure 80 mm[Hg] 80 mm[Hg] eCW1 ([facility]) Body weight 303 [lb_av] 303 [lb_av] eCW1 ([facility]) Body height 62 [in_i] 62 [in_i] eCW1 ([facility]) Body mass index (BMI) [Ratio] 55.41 kg/m2 55.41 kg/m2 eCW1 ([facility]) Systolic blood pressure 126 mm[Hg] 126 mm[Hg] e CW1 ([facility]) Diastolic blood pressure 80 mm[Hg] 80 mm[Hg] eCW1 ([facility]) Systolic blood pressure 132 mm[Hg] 132 mm[Hg] e CW1 ([facility]) Body weight 303 [lb_av] 303 [lb_av] eCW1 ([facility]) Body height 62 [in_i] 62 [in_i] eCW1 ([facility]) Diastolic blood pressure 72 mm[Hg] 72 mm[Hg] eCW1 ([facility]) Body mass index (BMI) [Ratio] 55.419 kg/m2 55.4 19 kg/m2 eCW1 ([facility]) Body weight 303 [lb_av] 303 [lb_av] eCW1 ([facility]) Body height 62 [in_i] 62 [in_i] eCW1 ([facility]) Body mass index (BMI) [Ratio] 55.419 kg/m2 55.4 19 kg/m2 eCW1 ([facility]) Systolic blood pressure 136 mm[Hg] 136 mm[Hg] e CW1 ([facility]) Diastolic blood pressure 84 mm[Hg] 84 mm[Hg] eCW1 ([facility]) Body weight 305.6 [lb_av] 305.6 [lb_av] eCW1 ([facility]) Body height 62 [in_i] 62 [in_i] eCW1 ([facility]) Body mass index (BMI) [Ratio] 55.895 kg/m2 55.8 95 kg/m2 eCW1 ([facility]) Systolic blood pressure 134 mm[Hg] 134 mm[Hg] e CW1 ([facility]) Diastolic blood pressure 78 mm[Hg] 78 mm[Hg] eCW1 ([facility]) Body weight 305.8 [lb_av] 305.8 [lb_av] eCW1 ([facility]) Body weight 138.71 kg 138.71 kg eCW1 ([facility]) Body height 62 [in_i] 62 [in_i] eCW1 ([facility]) Body mass index (BMI) [Ratio] 55.932 kg/m2 55.9 32 kg/m2 eCW1 ([facility]) Systolic blood pressure 132 mm[Hg] 132 mm[Hg] e CW1 ([facility]) Diastolic blood pressure 76 mm[Hg] 76 mm[Hg] eCW1 ([facility]) Body weight 303.4 [lb_av] 303.4 [lb_av] eCW1 ([facility]) Body weight 137.62 kg 137.62 kg eCW1 ([facility]) Body height 62 [in_i] 62 [in_i] eCW1 ([facility]) Systolic blood pressure 160 mm[Hg] 160 mm[Hg] e CW1 ([facility]) Body mass index (BMI) [Ratio] 55.493 kg/m2 55.4 93 kg/m2 eCW1 ([facility]) Diastolic blood pressure 80 mm[Hg] 80 mm[Hg] eCW1 ([facility]) Body weight 303.8 [lb_av] 303.8 [lb_av] eCW1 ([facility]) Body height 62 [in_i] 62 [in_i] eCW1 ([facility]) Body mass index (BMI) [Ratio] 55.566 kg/m2 55.5 66 kg/m2 eCW1 ([facility]) Systolic blood pressure 132 mm[Hg] 132 mm[Hg] e CW1 ([facility]) Diastolic blood pressure 76 mm[Hg] 76 mm[Hg] eCW1 ([facility]) Body weight 301 [lb_av] 301 [lb_av] eCW1 ([facility]) Body height 62 [in_i] 62 [in_i] eCW1 ([facility]) Body mass index (BMI) [Ratio] 55.054 kg/m2 55.0 54 kg/m2 eCW1 ([facility]) Systolic blood pressure 140 mm[Hg] 140 mm[Hg] e CW1 ([facility]) Diastolic blood pressure 80 mm[Hg] 80 mm[Hg] eCW1 ([facility]) Body weight 296 [lb_av] 296 [lb_av] eCW1 ([facility]) Body height 62 [in_i] 62 [in_i] eCW1 ([facility]) Body mass index (BMI) [Ratio] 54.139 kg/m2 54.1 39 kg/m2 eCW1 ([facility]) Systolic blood pressure 126 mm[Hg] 126 mm[Hg] e CW1 ([facility]) Diastolic blood pressure 86 mm[Hg] 86 mm[Hg] eCW1 ([facility]) Patient Treatment Plan of Care Planned Activity Planned Date Details Description Data Source (s) ferrous gluconate 324 MG Oral Tablet 12/11/2020 12:00:00 AM EDT eCW1 ([facility]) Docusate Sodium 100 MG Oral Tablet 12/11/2020 12:00:00 AM EDT eCW1 ([facility]) ferrous gluconate 324 MG Oral Tablet 12/11/2020 12:00:00 AM EDT eCW1 ([facility]) Docusate Sodium 100 MG Oral Tablet 12/11/2020 12:00:00 AM EDT eCW1 ([facility]) ferrous gluconate 324 MG Oral Tablet 12/11/2020 12:00:00 AM EDT eCW1 ([facility]) Docusate Sodium 100 MG Oral Tablet 12/11/2020 12:00:00 AM EDT eCW1 ([facility]) Labetalol hydrochloride 100 MG Oral Tablet 11/24/2020 12:00:00 AM E DT eCW1 ([facility]) NITROFURANTOIN, MACROCRYSTALS 25 MG / Ni trofurantoin, Monohydrate 75 MG Oral Capsule [Macrobid] 09/24/2020 12:00:00 AM EST eC W1 ([facility]) NITROFURANTOIN, MACROCRYSTALS 25 MG / Ni trofurantoin, Monohydrate 75 MG Oral Capsule [Macrobid] 09/24/2020 12:00:00 AM EST eC W1 ([facility]) Aspirin 81 MG Delayed Release Oral Tablet 09/22/2020 12:00:00 AM ES T eCW1 ([facility]) Aspirin 81 MG Delayed Release Oral Tablet 09/22/2020 12:00:00 AM ES T eCW1 ([facility]) Aspirin 81 MG Delayed Release Oral Tablet 09/22/2020 12:00:00 AM NATHALIA T eCW1 ([facility])
--- NOTE | 2021-06-17 21:08 | REPVR ---
PROCEDURE INFORMATION: Exam: XR Right Ankle Exam date and time: 06/17/2021 8:40 PM Age: 31 years old Clinical indication: Injury or trauma; Other: Rolled ankle; Swelling (edema); Right TECHNIQUE: Imaging protocol: XR Right ankle. Views: 3 or more views. COMPARISON: CR Foot, complete 03/15/2016 5:02 PM FINDINGS: Bones/joints: Normal. Soft tissues: Diffuse soft tissue edema at the ankle. IMPRESSION: Diffuse soft tissue edema at the ankle. No fracture. Electronically signed by: Mateusz Caruso On 06/17/2021 21:07:49 PM
[2021-06-17] MEDS ORDERED: ACETAMINOPHEN TAB 650MG DOSE (2X325MG) PO ONE (22:25)
--- OUTSIDE RECORDS SUMMARY | 2021-06-17 22:27 | CCD ---
Author Author [facility] Organization [facility] Address Unknown Phone Unavailable Care Team Providers Care Trauma Nurse Name Role Phone Maren Pederson PA Unavailable [...] is protected by Article 27-F of the [facility] Public Health law. If you continue you may have access to information: Regarding HIV / AIDS; Provided by facilities licensed or operated by the [facility] Office of Mental Health; or Provided by the [facility] Office for People With Developmental Disabilities. If such information is present, then the following [facility] mandated warning applies: This information has [...] law may result in a fine or halfway sentence or both. A general authorization for [...] Date Indications Data Source(s ) ( ESTOB) [facility] OB [address] [place] [address] 04/04/2021 12:00:00 AM EDT eCW1 ([facility]) Outpatient Attender: Marissa LUNDBERG 021 04:27:56 PM EDT - 03/20/2021 05:20:06 PM EDT [facility] ) ( ESTOB) [facility] OB [address] [place] [address] 02/21/2021 12:00:00 AM EDT eCW1 ([facility]) ( COB) [facility] [place] [address] [place] [address] 02/07/2021 12:00:00 AM EDT eCW1 ([facility]) ( ESTOB) [facility] OB [address] [place] [address] 01/30/2021 12:00:00 AM EDT eCW1 ([facility]) ( ESTOB) [facility] OB [address] [place] [address] 01/16/2021 12:00:00 AM EDT eCW1 ([facility]) (WC ESTOB) [facility] [address] [place] [address] 01/09/2021 12:00:00 AM EDT eCW1 ([facility]) (WC ESTOB) [facility] [address] [place] [address] 12/22/2020 12:00:00 AM EDT eCW1 ([facility]) Unknown [address] [facility] [address] 12/11/2020 12:00:00 AM EDT eCW1 ([facility]) (WC ESTOB) [facility] [address] [place] [address] 12/08/2020 12:00:00 AM EDT eCW1 ([facility]) (WC ESTOB) [facility] [address] [place] [address] 12/05/2020 12:00:00 AM EDT eCW1 ([facility]) (WC ESTOB) [facility] [address] [place] [address] 11/24/2020 12:00:00 AM EDT eCW1 ([facility]) (WC ESTOB) [facility] [address] [place] [address] 10/27/2020 12:00:00 AM EDT eCW1 ([facility]) [place] [address] [facility] [address] 09/24/2020 12:00:00 AM EST eCW1 ([facility]) (WC ESTOB) [facility] [address] [place] [address] 09/22/2020 12:00:00 AM EST eCW1 ([facility]) [place] [address] [facility] [address] 09/20/2020 12:00:00 AM EST eCW1 ([facility]) (WC ESTOB) [facility] [address] [place] [address] 08/16/2020 12:00:00 AM EST eCW1 ([facility]) Immunizations Vaccine Date Status Description Data Source(s) COVID-19 VACCINE Pfizer 05/20/2021 12:00:00 AM EDT completed [facility] Vaccine Series Complete: YESThis Data wa s Submitted to [facility] Via [facility]. COVID-19 VACC, MRNA(PFIZER)/PF 05/20/2021 12:00:00 AM EDT completed [facility] COVID-19 VACC, MRNA(PFIZER)/PF 04/29/2021 12:00:00 AM EDT completed [facility] COVID-19 VACCINE Pfizer 04/29/2021 12:00:00 AM EDT completed [facility] Vaccine Series Complete: NOThis Data was Submitted to [facility] Via [employer]. Medications Medication Brand Name Start Date Product Form Dose Route Admi nistrative Instructions Pharmacy Instructions Status Indications Reaction Description Data Source(s) Polymyxin B 53773 UNT/ML / Trimethoprim 1 MG/ML Ophthalmic Solution [...] EDT active Stool Softener 100 MG eCW1 ([facility]) ferrous gluconate 324 MG Oral Tablet Ferrous Gluconate 324 (38 Fe) MG Ferrous Gluconate 324 (38 Fe) MG 12/11/2020 12:00:00 AM EDT active eCW1 ([facility]) Docusate Sodium 100 MG Oral Tablet Stool Softener 100 MG Sto ol Softener 100 MG 12/11/2020 12:00:00 AM EDT active Stool Softener 100 MG eCW1 ([facility]) Docusate Sodium 100 MG Oral Tablet Stool Softener 100 MG Sto ol Softener 100 MG 12/11/2020 12:00:00 AM EDT suspended Stool Softener 100 MG eCW1 ([facility]) ferrous gluconate 324 MG Oral Tablet Ferrous Gluconate 324 (38 Fe) MG Ferrous Gluconate 324 (38 Fe) MG 12/11/2020 12:00:00 AM EDT active Ferrous Gluconate 324 (38 Fe) MG eCW1 ([facility]) ferrous gluconate 324 MG Oral Tablet Ferrous Gluconate 324 (38 Fe) MG Ferrous Gluconate 324 (38 Fe) MG 12/11/2020 12:00:00 AM EDT suspended Ferrous Gluconate 324 (38 Fe) MG eCW1 ([facility]) ferrous gluconate 324 MG Oral Tablet Ferrous Gluconate 324 (38 Fe) MG Ferrous Gluconate 324 (38 Fe) MG 12/11/2020 12:00:00 AM EDT suspended Ferrous Gluconate 324 (38 Fe) MG eCW1 ([facility]) ferrous gluconate 324 MG Oral Tablet Ferrous Gluconate 324 (38 Fe) MG Ferrous Gluconate 324 (38 Fe) MG 12/11/2020 12:00:00 AM EDT active Ferrous Gluconate 324 (38 Fe) MG eCW1 ([facility]) Docusate Sodium 100 MG Oral Tablet Stool Softener 100 MG Sto ol Softener 100 MG 12/11/2020 12:00:00 AM EDT active Stool Softener 100 MG eCW1 ([facility]) Docusate Sodium 100 MG Oral Tablet Stool Softener 100 MG Sto ol Softener 100 MG 12/11/2020 12:00:00 AM EDT active Stool Softener 100 MG eCW1 ([facility]) ferrous gluconate 324 MG Oral Tablet Ferrous Gluconate 324 (38 Fe) MG Ferrous Gluconate 324 (38 Fe) MG 12/11/2020 12:00:00 AM EDT active Ferrous Gluconate 324 (38 Fe) MG eCW1 ([facility]) Docusate Sodium 100 MG Oral Tablet Stool Softener 100 MG Sto ol Softener 100 MG 12/11/2020 12:00:00 AM EDT active Stool Softener 100 MG eCW1 ([facility]) Docusate Sodium 100 MG Oral Tablet Stool Softener 100 MG Sto ol Softener 100 MG 12/11/2020 12:00:00 AM EDT suspended Stool Softener 100 MG eCW1 ([facility]) ferrous gluconate 324 MG Oral Tablet Ferrous Gluconate 324 (38 Fe) MG Ferrous Gluconate 324 (38 Fe) MG 12/11/2020 12:00:00 AM EDT active Ferrous Gluconate 324 (38 Fe) MG eCW1 ([facility]) 324 mg (38 mg iron) 12/11/2020 12:00:00 [...] Ferrous Gluconate 324 (38 Fe) MG eCW1 ([facility]) ferrous gluconate 324 MG Oral Tablet Ferrous Gluconate 324 (38 Fe) MG Ferrous Gluconate 324 (38 Fe) MG 12/11/2020 12:00:00 AM EDT suspended Ferrous Gluconate 324 (38 Fe) MG eCW1 ([facility]) Docusate Sodium 100 MG Oral Tablet Stool Softener 100 MG Sto ol Softener 100 MG 12/11/2020 12:00:00 AM EDT active Stool Softener 100 MG eCW1 ([facility]) 100 mg 12/11/2020 12:00:00 AM EDT capsule 60 TAKE ONE CAPSULE BY MOUTH TWICE A DAY NEEDED FOR CONSTIPATION TAKE ONE CAPSULE BY MOUTH TWICE A DAY NEEDED FOR CONSTIPATION SOLD: 12/14/2020 [facility] Docusate Sodium 100 MG Oral Tablet Stool Softener 100 MG Sto ol Softener 100 MG 12/11/2020 12:00:00 AM EDT active eCW1 ([facility]) ferrous gluconate 324 MG Oral Tablet Ferrous Gluconate 324 (38 Fe) MG Ferrous Gluconate 324 (38 Fe) MG 12/11/2020 12:00:00 AM EDT active Ferrous Gluconate 324 (38 Fe) MG eCW1 ([facility]) Docusate Sodium 100 MG Oral Tablet Stool Softener 100 MG Sto ol Softener 100 MG 12/11/2020 12:00:00 AM EDT suspended Stool Softener 100 MG eCW1 ([facility]) Labetalol hydrochloride 100 MG Oral Tablet Labetalol H Cl 100 MG Labetalol HCl 100 MG 11/24/2020 12:00:00 AM EDT 1.0 {tablet} activ e Labetalol HCl 100 MG eCW1 ([facility]) Labetalol hydrochloride 100 MG Oral Tablet Labetalol H Cl 100 MG Labetalol HCl 100 MG 11/24/2020 12:00:00 AM EDT 1.0 {tablet} suspe nded Labetalol HCl 100 MG eCW1 ([facility]) 100 mg 11/24/2020 12:00:00 AM EDT tablet 60 TAKE ONE TABLET BY MOUTH TWICE A DAY TAKE ONE TABLET BY MOUTH TWICE A DAY SOLD: 11/25/2020 [facility] Labetalol hydrochloride 100 MG Oral Tablet Labetalol H Cl 100 MG Labetalol HCl 100 MG 11/24/2020 12:00:00 AM EDT 1.0 {tablet} activ e Labetalol HCl 100 MG eCW1 ([facility]) Labetalol hydrochloride 100 MG Oral Tablet Labetalol H Cl 100 MG Labetalol HCl 100 MG 11/24/2020 12:00:00 AM EDT 1.0 {tablet} suspe nded Labetalol HCl 100 MG eCW1 ([facility]) Labetalol hydrochloride 100 MG Oral Tablet Labetalol H Cl 100 MG Labetalol HCl 100 MG 11/24/2020 12:00:00 AM EDT 1.0 {tablet} activ e Labetalol HCl 100 MG eCW1 ([facility]) Labetalol hydrochloride 100 MG Oral Tablet Labetalol H Cl 100 MG Labetalol HCl 100 MG 11/24/2020 12:00:00 AM EDT 1.0 {tablet} activ e Labetalol HCl 100 MG eCW1 ([facility]) Labetalol hydrochloride 100 MG Oral Tablet Labetalol H Cl 100 MG Labetalol HCl 100 MG 11/24/2020 12:00:00 AM EDT 1.0 {tablet} activ e Labetalol HCl 100 MG eCW1 ([facility]) Labetalol hydrochloride 100 MG Oral Tablet Labetalol H Cl 100 MG Labetalol HCl 100 MG 11/24/2020 12:00:00 AM EDT 1.0 {tablet} activ e Labetalol HCl 100 MG eCW1 ([facility]) Labetalol hydrochloride 100 MG Oral Tablet LABETALOL HCL 11/24/2020 12:00:00 AM EDT tablet 60 TAKE ONE TABLET BY MOUTH TWI CE A DAY TAKE ONE TABLET BY MOUTH TWICE A DAY SOLD: 01/10/2021 [facility] Labetalol hydrochloride 100 MG Oral Tablet Labetalol H Cl 100 MG Labetalol HCl 100 MG 11/24/2020 12:00:00 AM EDT 1.0 {tablet} active eCW1 ([facility]) Labetalol hydrochloride 100 MG Oral Tablet Labetalol H Cl 100 MG Labetalol HCl 100 MG 11/24/2020 12:00:00 AM EDT 1.0 {tablet} activ e Labetalol HCl 100 MG eCW1 ([facility]) Labetalol hydrochloride 100 MG Oral Tablet Labetalol H Cl 100 MG Labetalol HCl 100 MG 11/24/2020 12:00:00 AM EDT 1.0 {tablet} suspe nded Labetalol HCl 100 MG eCW1 ([facility]) NITROFURANTOIN, MACROCRYSTALS 25 MG / Ni trofurantoin, Monohydrate 75 MG Oral Capsule [Macrobid] Macrobid 100 MG Macrobid 100 MG 09/24/2020 12:00:00 AM EST 1.0 {capsule} active Macrobid 100 MG eC W1 ([facility]) NITROFURANTOIN, MACROCRYSTALS 25 MG / Ni trofurantoin, Monohydrate 75 MG Oral Capsule [Macrobid] Macrobid 100 MG Macrobid 100 MG 09/24/2020 12:00:00 AM EST 1.0 {capsule} active Macrobid 100 MG eC W1 ([facility]) NITROFURANTOIN, MACROCRYSTALS 25 MG / Ni trofurantoin, Monohydrate 75 MG Oral Capsule [Macrobid] Macrobid 100 MG Macrobid 100 MG 09/24/2020 12:00:00 AM EST 1.0 {capsule} active Macrobid 100 MG eC W1 ([facility]) 100 mg 09/24/2020 12:00:00 AM EST capsule 14 TAKE ONE CAPSULE BY MOUTH TWICE A DAY FOR 7 DAYS TAKE ONE CAPSULE BY MOUTH TWICE A DAY FOR 7 DAYS SOLD: 09/24/2020 [facility] NITROFURANTOIN, MACROCRYSTALS 25 MG / Ni trofurantoin, Monohydrate 75 MG Oral Capsule [Macrobid] Macrobid 100 MG Macrobid 100 MG 09/24/2020 12:00:00 AM EST 1.0 {capsule} suspended Macrobid 100 MG eCW1 ([facility]) 81 mg 09/23/2020 12:00:00 AM EST tablet,delayed release (DR/EC) 30 TAKE ONE TABLET BY MOUTH EVERY DAY TAKE ONE TABLET BY MOUTH EVERY DAY SOLD: 09/24/2020 [facility] 81 mg 09/23/2020 12:00:00 AM EST tablet,delayed release (DR/EC) 30 TAKE ONE TABLET BY MOUTH EVERY DAY TAKE ONE TABLET BY MOUTH EVERY DAY SOLD: 11/06/2020 [facility] Aspirin 81 MG Delayed Release Oral Tablet Aspirin 81 81 MG A spirin 81 81 MG 09/22/2020 12:00:00 AM EST 1.0 {tablet} active Aspirin 81 81 MG eCW1 ([facility]) Aspirin 81 MG Delayed Release Oral Tablet Aspirin 81 81 MG A spirin 81 81 MG 09/22/2020 12:00:00 AM EST 1.0 {tablet} active Aspirin 81 81 MG eCW1 ([facility]) Aspirin 81 MG Delayed Release Oral Tablet Aspirin 81 81 MG A spirin 81 81 MG 09/22/2020 12:00:00 AM EST 1.0 {tablet} active Aspirin 81 81 MG eCW1 ([facility]) Aspirin 81 MG Delayed Release Oral Tablet Aspirin 81 81 MG A spirin 81 81 MG 09/22/2020 12:00:00 AM EST 1.0 {tablet} active Aspirin 81 81 MG eCW1 ([facility]) Aspirin 81 MG Delayed Release Oral Tablet Aspirin 81 81 MG A spirin 81 81 MG 09/22/2020 12:00:00 AM EST 1.0 {tablet} active Aspirin 81 81 MG eCW1 ([facility]) Insurance Providers Payer name Policy type / Coverage type Policy ID Covered democrat ID Covered democrat's relationship to hernandez Policy Hernandez Plan Information [employer] Federal Service Medigap Part B [id number] [facility] COMMUNITY [facility]AN [facility] [id number] SP [id number] [facility] Community Plan Commercial [id number] Self [facility] MCDO [id number] SP [id number] [facility] [id number] SP [id number] [facility] Commercial Insurance Co. [id number] Self [id number] ANSI-Medicaid [id number] ANSI-Medicaid [id number] ANSI-Medicaid [id number] [facility] [id number] [facility] O [id number] S [id number] [facility] Maintenance Organization ([facility]) [id number] Self [id number] Medicaid [place] Medigap Part B [id number] Self [facility]ly [facility] Maintenance [facility] ([facility]) [id number] Self MEDICAID [id number] SP [id number] MEDICAID M [id number] S [id number] AMERICHOICE UNHC XIX HMO -I/P [id number] 18 [id number] UNHC AMERICHOICE XIX -HMO [id number] 18 [id number] PGBA [facility] [id number] HU2 [id number] PGBA [facility] [id number] FA2 [id number] UNHC COMMUNITY PLAN MCDO [id number] SP [id number] [facility]ITY [facility] [id number] SP [id number] [facility] Health Maintenance [facility] ([facility]) [id number] Self [id number] ANSI-Medicaid [id number] ANSI-Medicaid [id number] ANSI-Medicaid [id number] Problems, Conditions, and Diagnoses Code Display Name Description Problem Type Effective Dates Data Source(s) O10.013 [id number] Essential hypertension affecting in third trimester Problem 02/05/2021 12:00:00 AM EDT eCW1 ([facility]) O10.913 [id number] Pre-existing hyperte nsion affecting in third trimester Problem 01/16/2021 12:00:00 AM EDT eCW1 ([facility]) O16.3 Maternal hypertension Hypertension affecting pre gnancy in third trimester Problem 01/09/2021 12:00:00 AM EDT eCW1 ([facility]) O10.919 [id number] Chronic hypertension affecting Problem 12/05/2020 12:00:00 AM EDT eCW1 ([facility]) O10.012 [id number] Essential hypertension affecting in second trimester Problem 11/23/2020 12:00:00 AM EDT eCW1 ([facility]) E66.01 [id number] Morbid obesity due to excess calories Pro blem 10/01/2020 12:00:00 AM EST eCW1 ([facility]) Z68.43 [id number] BMI 50.0-59.9, adult Problem 10/01/2020 12:0 0:00 AM EST eCW1 ([facility]) O99.212 [id number] Obesity complicating in second trimester Problem 09/21/2020 12:00:00 AM EST eCW1 ([facility]) Z34.80 care Supervision of other normal P roblem 08/16/2020 12:00:00 AM EST eCW1 ([facility]) Surgeries/Procedures No Information Results ID Date Data Source 707 05/27/2021 12:00:00 AM EDT [facility] Name Value Range Interpretation Code Description Data Corrina rce(s) Supporting Document(s) SARS-CoV2 Rapid Antigen Positive [facility] This lab was ordered by [facility] and reported by [facility]. ID Date Data Source GROUP B STREP CULTURE 01/30/2021 12:00:00 AM EDT eCW1 ([facility]) Name Value Range Interpretation Code Description Data Corrina rce(s) Supporting Document(s) GROUP B STREP CULTURE eCW1 ([facility]) ID Date Data Source Glucose Challenge Test 1 Hour 12/11/2020 12:00:00 AM EDT eCW 1 ([facility]) Name Value Range Interpretation Code Description Data Corrina rce(s) Supporting Document(s) 113 LESS THAN 140 GLUCOSE CHALLENGE TEST 1 HOUR eCW1 ([facility]) ID Date Data Source CBC - Complete Blood Count 12/08/2020 12:00:00 AM EDT eCW1 ( [facility]) Name Value Range Interpretation Code Description Data Corrina rce(s) Supporting Document(s) 4.40 4.00-5.40 eCW1 ([facility]) 7.9 4.0-10.0 eCW1 ([facility]) 79.1 80.0-96.0 eCW1 ([facility]) 10.6 12.0-15.5 eCW1 ([facility]) 34.8 36.0-47.0 eCW1 ([facility]) 30.5 32.0-36.5 eCW1 ([facility]) 24.1 27.0-33.0 eCW1 ([facility]) 15.3 11.5-14.5 eCW1 ([facility]) 236 150-450 eCW1 ([facility]) ID Date Data Source Type and Screen (D Rh Antibody Screen) 12/08/2020 12:00:00 A M EDT eCW1 ([facility]) Name Value Range Interpretation Code Description Data Corrina rce(s) Supporting Document(s) O POSITIVE eCW1 ([facility]) NEGATIVE eCW1 ([facility]) ID Date Data Source WW[employer] OBS FOLLOW UP OR REPEAT 11/10/2020 12:00:00 AM EDT eCW1 ([facility]) Name Value Range Interpretation Code Description Data Corrina rce(s) Supporting Document(s) WW[employer] OBS FOLLOW UP OR REPEAT e CW1 ([facility]) ID Date Data Source Pre Eclampsia Profile 09/29/2020 12:00:00 AM EST eCW1 ([facility]) Name Value Range Interpretation Code Description Data Corrina rce(s) Supporting Document(s) 0.58 0.55-1.30 CREATININE FOR GFR eCW1 ([facility]) > 60.0 >60 GLOMERULAR FILTRATION RATE eCW 1 ([facility]) 8 7-37 AST/SGOT eCW1 ([facility]) 17 12-78 ALT/SGPT eCW1 ([facility]) 3.6 2.6-6.0 URIC ACID eCW1 ([facility]) 0.3 0.2-1.0 BILIRUBIN,TOTAL eCW1 ([facility]) 135 84-246 LDH LACTATE DEHYDROGENASE eCW1 ([facility]) ID Date Data Source URINE CULTURE 09/22/2020 12:00:00 AM EST eCW1 ([facility]) Name Value Range Interpretation Code Description Data Corrina rce(s) Supporting Document(s) URINE CULTURE eCW1 ([facility]) ID Date Data Source TOTAL PROTEIN,RANDOM URINE 09/22/2020 12:00:00 AM EST eCW1 ( [facility]) Name Value Range Interpretation Code Description Data Corrina rce(s) Supporting Document(s) 5.8 0.0-12.0 TOTAL PROTEIN,RANDOM URIN E eCW1 ([facility]) ID Date Data Source CREATININE,RANDOM URINE 09/22/2020 12:00:00 AM EST eCW1 ([facility]) Name Value Range Interpretation Code Description Data Corrina rce(s) Supporting Document(s) 116.0 CREATININE,RANDOM URINE eCW1 ( [facility]) Procedure Social History Code Duration Value Status Description Data Source(s ) Smoking 04/04/2021 12:00:00 AM EDT Never Smoker completed Never S moker eCW1 ([facility]) Smoking 02/21/2021 12:00:00 AM EDT Never Smoker completed Never S moker eCW1 ([facility]) Smoking 02/21/2021 12:00:00 AM EDT Never Smoker completed Never S moker eCW1 ([facility]) Smoking 01/30/2021 12:00:00 AM EDT Never Smoker completed Never S moker eCW1 ([facility]) Smoking 01/17/2021 12:00:00 AM EDT Never Smoker completed Never S moker eCW1 ([facility]) Smoking 01/15/2021 12:00:00 AM EDT Never Smoker completed Never S moker eCW1 ([facility]) Smoking 01/02/2021 12:00:00 AM EDT Never Smoker completed Never S moker eCW1 ([facility]) Smoking 12/15/2020 12:00:00 AM EDT Never Smoker completed Never S moker eCW1 ([facility]) Smoking 12/07/2020 12:00:00 AM EDT Never Smoker completed Never S moker eCW1 ([facility]) Smoking 12/07/2020 12:00:00 AM EDT Never Smoker completed Never S moker eCW1 ([facility]) Smoking 11/24/2020 12:00:00 AM EDT Never Smoker completed Never S moker eCW1 ([facility]) Smoking 10/27/2020 12:00:00 AM EDT Never Smoker completed Never S moker eCW1 ([facility]) Smoking 09/18/2020 12:00:00 AM EST Never Smoker completed Never S moker eCW1 ([facility]) Smoking 09/18/2020 12:00:00 AM EST Never Smoker completed Never S moker eCW1 ([facility]) Smoking 09/18/2020 12:00:00 AM EST Never Smoker completed Never S moker eCW1 ([facility]) Smoking 08/16/2020 12:00:00 AM EST Never Smoker completed Never S moker eCW1 ([facility]) Vital Signs ID Date Data Source UNK Name Value Range Interpretation Code Description Data Source(s) Body weight 292.2 [lb_av] 292.2 [lb_av] eCW1 ([facility]) Body height 62 [in_i] 62 [in_i] eCW1 ([facility]) Body mass index (BMI) [Ratio] 53.44 kg/m2 53.44 kg/m2 eCW1 ([facility]) Systolic blood pressure 130 mm[Hg] 130 mm[Hg] e CW1 ([facility]) Diastolic blood pressure 84 mm[Hg] 84 mm[Hg] eCW1 ([facility]) Systolic blood pressure 120 mm[Hg] 120 mm[Hg] e CW1 ([facility]) Body weight 283.6 [lb_av] 283.6 [lb_av] eCW1 ([facility]) Body weight 128.64 kg 128.64 kg eCW1 ([facility]) Body height 62 [in_i] 62 [in_i] eCW1 ([facility]) Body mass index (BMI) [Ratio] 51.87 kg/m2 51.87 kg/m2 eCW1 ([facility]) Diastolic blood pressure 78 mm[Hg] 78 mm[Hg] eCW1 ([facility]) Body weight 305.5 [lb_av] 305.5 [lb_av] eCW1 ([facility]) Body weight 138.57 kg 138.57 kg eCW1 ([facility]) Body height 62 [in_i] 62 [in_i] eCW1 ([facility]) Body mass index (BMI) [Ratio] 55.877 kg/m2 55.8 77 kg/m2 W1 ([facility]) Systolic blood pressure 140 mm[Hg] 140 mm[Hg] e CW1 ([facility]) Diastolic blood pressure 80 mm[Hg] 80 mm[Hg] eCW1 ([facility]) Body weight 303 [lb_av] 303 [lb_av] eCW1 ([facility]) Body height 62 [in_i] 62 [in_i] eCW1 ([facility]) Body mass index (BMI) [Ratio] 55.41 kg/m2 55.41 kg/m2 eCW1 ([facility]) Systolic blood pressure 126 mm[Hg] 126 mm[Hg] e CW1 ([facility]) Diastolic blood pressure 80 mm[Hg] 80 mm[Hg] eCW1 ([facility]) Body height 62 [in_i] 62 [in_i] eCW1 ([facility]) Body weight 303 [lb_av] 303 [lb_av] eCW1 ([facility]) Systolic blood pressure 132 mm[Hg] 132 mm[Hg] e CW1 ([facility]) Diastolic blood pressure 72 mm[Hg] 72 mm[Hg] eCW1 ([facility]) Body mass index (BMI) [Ratio] 55.419 kg/m2 55.4 19 kg/m2 eCW1 ([facility]) Body weight 303 [lb_av] 303 [lb_av] eCW1 ([facility]) Body height 62 [in_i] 62 [in_i] eCW1 ([facility]) Body mass index (BMI) [Ratio] 55.419 kg/m2 55.4 19 kg/m2 eCW1 ([facility]) Systolic blood pressure 136 mm[Hg] 136 mm[Hg] e CW1 ([facility]) Diastolic blood pressure 84 mm[Hg] 84 mm[Hg] eCW1 ([facility]) Body weight 305.6 [lb_av] 305.6 [lb_av] eCW1 ([facility]) Body height 62 [in_i] 62 [in_i] eCW1 ([facility]) Body mass index (BMI) [Ratio] 55.895 kg/m2 55.8 95 kg/m2 eCW1 ([facility]) Systolic blood pressure 134 mm[Hg] 134 mm[Hg] e CW1 ([facility]) Diastolic blood pressure 78 mm[Hg] 78 mm[Hg] eCW1 ([facility]) Body weight 305.8 [lb_av] 305.8 [lb_av] eCW1 ([facility]) Body weight 138.71 kg 138.71 kg eCW1 ([facility]) Body height 62 [in_i] 62 [in_i] eCW1 ([facility]) Body mass index (BMI) [Ratio] 55.932 kg/m2 55.9 32 kg/m2 eCW1 ([facility]) Systolic blood pressure 132 mm[Hg] 132 mm[Hg] e CW1 ([facility]) Diastolic blood pressure 76 mm[Hg] 76 mm[Hg] eCW1 ([facility]) Body weight 303.4 [lb_av] 303.4 [lb_av] eCW1 ([facility]) Body weight 137.62 kg 137.62 kg eCW1 ([facility]) Body height 62 [in_i] 62 [in_i] eCW1 ([facility]) Systolic blood pressure 160 mm[Hg] 160 mm[Hg] e CW1 ([facility]) Body mass index (BMI) [Ratio] 55.493 kg/m2 55.4 93 kg/m2 eCW1 ([facility]) Diastolic blood pressure 80 mm[Hg] 80 mm[Hg] eCW1 ([facility]) Body weight 303.8 [lb_av] 303.8 [lb_av] eCW1 ([facility]) Body height 62 [in_i] 62 [in_i] eCW1 ([facility]) Body mass index (BMI) [Ratio] 55.566 kg/m2 55.5 66 kg/m2 eCW1 ([facility]) Systolic blood pressure 132 mm[Hg] 132 mm[Hg] e CW1 ([facility]) Diastolic blood pressure 76 mm[Hg] 76 mm[Hg] eCW1 ([facility]) Body weight 301 [lb_av] 301 [lb_av] eCW1 ([facility]) Body height 62 [in_i] 62 [in_i] eCW1 ([facility]) Body mass index (BMI) [Ratio] 55.054 kg/m2 55.0 54 kg/m2 eCW1 ([facility]) Systolic blood pressure 140 mm[Hg] 140 mm[Hg] e CW1 ([facility]) Diastolic blood pressure 80 mm[Hg] 80 mm[Hg] eCW1 ([facility]) Body weight 296 [lb_av] 296 [lb_av] eCW1 ([facility]) Body height 62 [in_i] 62 [in_i] eCW1 ([facility]) Body mass index (BMI) [Ratio] 54.139 kg/m2 54.1 39 kg/m2 eCW1 ([facility]) Systolic blood pressure 126 mm[Hg] 126 mm[Hg] e CW1 ([facility]) Diastolic blood pressure 86 mm[Hg] 86 mm[Hg] eCW1 ([facility]) Patient Treatment Plan of Care Planned Activity Planned Date Details Description Data Source (s) ferrous gluconate 324 MG Oral Tablet 12/11/2020 12:00:00 AM EDT eCW1 ([facility]) Docusate Sodium 100 MG Oral Tablet 12/11/2020 12:00:00 AM EDT eCW1 ([facility]) ferrous gluconate 324 MG Oral Tablet 12/11/2020 12:00:00 AM EDT eCW1 ([facility]) Docusate Sodium 100 MG Oral Tablet 12/11/2020 12:00:00 AM EDT eCW1 ([facility]) ferrous gluconate 324 MG Oral Tablet 12/11/2020 12:00:00 AM EDT eCW1 ([facility]) Docusate Sodium 100 MG Oral Tablet 12/11/2020 12:00:00 AM EDT eCW1 ([facility]) Labetalol hydrochloride 100 MG Oral Tablet 11/24/2020 12:00:00 AM E DT eCW1 ([facility]) NITROFURANTOIN, MACROCRYSTALS 25 MG / Ni trofurantoin, Monohydrate 75 MG Oral Capsule [Macrobid] 09/24/2020 12:00:00 AM EST eC W1 ([facility]) NITROFURANTOIN, MACROCRYSTALS 25 MG / Ni trofurantoin, Monohydrate 75 MG Oral Capsule [Macrobid] 09/24/2020 12:00:00 AM EST eC W1 ([facility]) Aspirin 81 MG Delayed Release Oral Tablet 09/22/2020 12:00:00 AM ES T eCW1 ([facility]) Aspirin 81 MG Delayed Release Oral Tablet 09/22/2020 12:00:00 AM ES T eCW1 ([facility]) Aspirin 81 MG Delayed Release Oral Tablet 09/22/2020 12:00:00 AM NATHALIA T eCW1 ([facility])
== END 2021-06-17 22:44 | disposition home or self-care (01) ==
LOC: M ED 20:08
DX: S93.401A Sprain of unspecified ligament of right ankle, initial encounter (principal); X50.0XXA Overexertion from strenuous movement or load, initial encounter; Y92.9 Unspecified place or not applicable; Y93.9 Activity, unspecified; Y99.9 Unspecified external cause status; I10 Essential (primary) hypertension

== ENCOUNTER → 2021-06-20 | Outpatient (REF) | payer OTHER | LOC: M LAB REF 16:48 | PROVIDERS: ATTEND Physician Assistant | DX: J02.9 Acute pharyngitis, unspecified (principal) ==

== ENCOUNTER → 2021-06-25 | Outpatient (REF) | payer OTHER | LOC: M SFHCPLAZ 14:51 | PROVIDERS: ATTEND Family Medicine | DX: Z53.9 Procedure and treatment not carried out, unspecified reason (principal); E78.5 Hyperlipidemia, unspecified ==

== ENCOUNTER → 2021-06-27 | Outpatient (REF) | payer OTHER ==
[2021-06-27 18:22] LABS: CHOLESTEROL RISK RATIO 5.392 (<5); THYROID STIMULATING HORMONE 4.63 uIU/ML (0.358-3.740)
[2021-06-27 18:45] LABS: HEMOGLOBIN A1c 5.5 %
== END ==
LOC: M SFHCPLAZ 17:01
PROVIDERS: ATTEND Student in an Organized Health Care Education/Training Program
DX: E78.5 Hyperlipidemia, unspecified (principal); E66.9 Obesity, unspecified

== ENCOUNTER → 2021-07-03 | Outpatient (REF) | payer OTHER | LOC: M SFHCPLAZ 13:29 | PROVIDERS: ATTEND Student in an Organized Health Care Education/Training Program | DX: R79.89 Other specified abnormal findings of blood chemistry (principal) ==

== ENCOUNTER 2021-07-05 17:00 | Emergency (ER) | payer OTHER ==
[~2021-07-05] VITALS: Ht 157.5 cm; Wt 134.6 kg
--- OUTSIDE RECORDS SUMMARY | 2021-07-05 17:06 | CCD ---
Author Author [facility] Organization [facility] Address Unknown Phone Unavailable Care Team Providers Care Chief Quality Officer Name Role Phone Mayda Rosa Unavailable PROBLEMS Type Condition ICD9-CM Code [id number] Code Onset Dates Condition S tatus W/U Status Risk SNOMED Code Notes Problem Hyperlipidemia E78.5 Active confirmed 37591 004 Problem Vitamin D deficiency, unspecified E55.9 Active con firmed 62828774 Problem Obesity E66.9 Active confirmed 287545963 Problem Supervision of other normal Z34.80 Ac tive confirm 101807425 Problem Obesity complicating in second trimester O99.212 Active confirmed 974846450243 Problem BMI 50.0-59.9, adult Z68.43 Active confirmed 950325028 Problem Pre-existing hypertension affecting in third trimester O10.913 Active confirmed 937557857 Problem Irregular menstrual cycle N92.6 Active confirmed 97871106 Problem Essential hypertension affecting in third tr imester O10.013 Active confirmed 34705099 Problem PCOS (polycystic ovarian syndrome) E28.2 Activ e confirmed 49767633 Problem Morbid obesity due to excess calories E66.01 Ac tive confirmed 561282322 Problem Essential hypertension affecting in se cond trimester O10.012 Active confirmed 00163511 Problem Chronic hypertension affecting O10.919 Active confirmed 54450171 Problem Hypertension affecting in third trimester O16.3 Active confirmed 995921076 ALLERGIES No Known Allergies ENCOUNTERS from 1991 to 2021-06-20 Encounter Location Date Provider Diagnosis [facility] [address] [phone] [place] [address] Jun, Mayda Burciagaosairaj IMMUNIZATIONS No Information SOCIAL HISTORY Tobacco Use: Social History Observation Description Date Details (start date - stop date) Never Smoker Sex Assigned At : Social History Observation Description Sex Assigned At Unknown Language: Question Answer Notes Languages spoken: Occitan Alcohol Screening: Question Answer Notes Did you have a drink containing alcohol in the past year? No Points 0 Interpretation Negative Tobacco Use: Question Answer Notes Are you a: never smoker REASON FOR REFERRAL No Information VITAL SIGNS No information MEDICATIONS Medication SIG (Take, Route, Frequency, Duration) [...] Information RESULTS No Results REASON FOR VISIT [facility] referral MEDICAL (GENERAL) HISTORY Type Description Date Medical [...] No Information FUNCTIONAL STATUS No Information ASSESSMENTS No Information PLAN OF TREATMENT Next Appt Details Provider Name:Roosevelt Galvez, 2021-06-25 0 1:45:00 PM, [address] [facility], , [place], [address], Insurance Providers Payer Name Payer Address Payer Phone Insured Name Patient Relati onship to Insured Coverage Start Date Coverage End Date [facility] [employer] [facility] [address] [facility] [phone] ISAI LAWRENCE self
--- OUTSIDE RECORDS SUMMARY | 2021-07-05 17:06 | CCD ---
Author Author [facility] Organization [facility] Address Unknown Phone Unavailable Care Team Providers Care Ornament Setter Name Role Phone Maren Pederson PA Unavailable [...] is protected by Article 27-F of the [facility] Public Health law. If you continue you may have access to information: Regarding HIV / AIDS; Provided by facilities licensed or operated by the [facility] Office of Mental Health; or Provided by the [facility] Office for People With Developmental Disabilities. If such information is present, then the following [facility] mandated warning applies: This information has [...] law may result in a fine or intermediate sentence or both. A general authorization for [...] Providers Location Date Indications Data Source(s ) Unknown [address] [facility] [address] 07/02/2021 12:00:00 AM EST eCW1 ([facility]) Unknown [address] [facility] [address] 07/02/2021 12:00:00 AM EST eCW1 ([facility]) Unknown [address] [facility] [address] 06/20/2021 12:00:00 AM EST eCW1 ([facility]) Unknown [address] [facility] [address] 06/20/2021 12:00:00 AM EST eCW1 ([facility]) ( ESTOB) enter Est OB [address] [place] [address] 04/04/2021 12:00:00 AM EDT eCW1 ([facility]) Outpatient Attender: Marissa LUNDBERG 021 04:27:56 PM EDT - 03/20/2021 05:20:06 PM EDT DocuTap ([facility] ) (WC ESTOB) enter Est OB [address] [place] [address] 02/21/2021 12:00:00 AM EDT eCW1 ([facility]) (WC COB) WCenter Complicated OB [address] [place] [address] 02/07/2021 12:00:00 AM EDT eCW1 ([facility]) (WC ESTOB) WCenter Est OB [address] [place] [address] 01/30/2021 12:00:00 AM EDT eCW1 ([facility]) (WC ESTOB) WCenter Est OB [address] [place] [address] 01/16/2021 12:00:00 AM EDT eCW1 ([facility]) (WC ESTOB) WCenter Est OB [address] [place] [address] 01/09/2021 12:00:00 AM EDT eCW1 ([facility]) (WC ESTOB) WCenter Est OB [address] [place] [address] 12/22/2020 12:00:00 AM EDT eCW1 ([facility]) Unknown [address] [facility] [place] [address] 12/11/2020 12:00:00 AM EDT eCW1 ([facility]) (WC ESTOB) WCenter Est OB [address] [place] [address] 12/08/2020 12:00:00 AM EDT eCW1 ([facility]) (WC ESTOB) WCenter Est OB [address] [place] [address] 12/05/2020 12:00:00 AM EDT eCW1 ([facility]) (WC ESTOB) WCenter Est OB [address] [place] [address] 11/24/2020 12:00:00 AM EDT eCW1 ([facility]) (WC ESTOB) WCenter Est OB [address] [place] [address] 10/27/2020 12:00:00 AM EDT eCW1 ([facility]) Unknown [address] [facility] [address] 09/24/2020 12:00:00 AM EST eCW1 ([facility]) ( ESTOB) WCenter Est OB [address] [place] [address] 09/22/2020 12:00:00 AM EST eCW1 ([facility]) Unknown [address] [facility] [address] 09/20/2020 12:00:00 AM EST eCW1 ([facility]) ( ESTOB) WCenter Est OB [address] [place] [address] 08/16/2020 12:00:00 AM EST eCW1 ([facility]) Immunizations Vaccine Date Status Description Data Source(s) COVID-19 VACCINE Pfizer 05/20/2021 12:00:00 AM EDT completed [facility] Vaccine Series Complete: YESThis Data wa s Submitted to [facility] Via [employer] [facility]. COVID-19 VACC, MRNA(PFIZER)/PF 05/20/2021 12:00:00 AM EDT completed [facility] COVID-19 VACC, MRNA(PFIZER)/PF 04/29/2021 12:00:00 AM EDT completed [facility] COVID-19 VACCINE Pfizer 04/29/2021 12:00:00 AM EDT completed [facility] Vaccine Series Complete: NOThis Data was Submitted to [facility] Via [employer] [facility]. Medications Medication Brand Name Start Date Product Form Dose Route Admi nistrative Instructions Pharmacy Instructions Status Indications Reaction Description Data Source(s) 875 mg 06/22/2021 12:00:00 AM EST tablet 14 TAKE ONE TABLET BY MOUTH EVERY 12 HOURS FOR 7 DAYS TAKE ONE TABLET BY MOUTH EVERY 12 HOURS FOR 7 DAYS JOLENE [facility] Polymyxin B 90751 UNT/ML / Trimethoprim 1 MG/ML Ophthalmic Solution 10,000 unit- 1 mg/mL POLYMYXIN B SULF/TRIMETHOPRIM 05/29/2021 12:00:00 AM EDT drops 1 0 INSTILL 1-2 DROPS IN THE LEFT EYE EVERY 6 HOURS FOR 7 DAYS INSTILL 1-2 DROPS IN THE LEFT EYE EVERY 6 HOURS FOR 7 DAYS SOLD: 05/29/2021 [facility] Clindamycin 150 MG Oral Capsule CLINDAMYCIN HCL 05/29/2021 12:00 :00 AM EDT capsule 60 TAKE TWO CAPSULES BY MOUTH THREE TIMES A DAY TAKE TWO CAPSULES BY MOUTH THREE TIMES A DAY SOLD: 05/29/2021 [facility] 800-160 mg 03/20/2021 12:00:00 AM EDT tablet 20 TAKE ONE TABLET BY MOUTH TWICE A DAY FOR 10 DAYS TAKE ONE TABLET BY MOUTH TWICE A DAY FOR 10 DAYS SOLD: 03/21/2021 [facility] 5-325 mg 02/13/2021 12:00:00 AM EDT tablet 20 TAKE ONE TABLET BY MOUTH THREE TIMES A DAY NEEDED FOR PAIN MAXIMUM DAILY DOSE = 3 TAKE ONE TABLET BY MOUTH THREE TIMES A DAY NEEDED FOR PAIN MAXIMUM DAILY DOSE = 3 SOLD: 02/13/2021 [facility] 800 mg 02/13/2021 12:00:00 AM EDT tablet 30 TAKE ONE TABLET BY MOUTH EVERY 8 HOURS TAKE ONE TABLET BY MOUTH EVERY 8 HOURS SOLD: 02/13/2021 [facility] Docusate Sodium 100 MG Oral Tablet Stool Softener 100 MG Sto ol Softener 100 MG 12/11/2020 12:00:00 AM EDT active Stool Softener 100 MG eCW1 ([facility]) ferrous gluconate 324 MG Oral Tablet Ferrous Gluconate 324 (38 Fe) MG Ferrous Gluconate 324 (38 Fe) MG 12/11/2020 12:00:00 AM EDT active eCW1 ([facility]) Docusate Sodium 100 MG Oral Tablet Stool Softener 100 MG Sto ol Softener 100 MG 12/11/2020 12:00:00 AM EDT active Stool Softener 100 MG eCW1 ([facility]) Docusate Sodium 100 MG Oral Tablet Stool Softener 100 MG Sto ol Softener 100 MG 12/11/2020 12:00:00 AM EDT suspended Stool Softener 100 MG eCW1 ([facility]) ferrous gluconate 324 MG Oral Tablet Ferrous Gluconate 324 (38 Fe) MG Ferrous Gluconate 324 (38 Fe) MG 12/11/2020 12:00:00 AM EDT active Ferrous Gluconate 324 (38 Fe) MG eCW1 ([facility]) ferrous gluconate 324 MG Oral Tablet Ferrous Gluconate 324 (38 Fe) MG Ferrous Gluconate 324 (38 Fe) MG 12/11/2020 12:00:00 AM EDT suspended Ferrous Gluconate 324 (38 Fe) MG eCW1 ([facility]) ferrous gluconate 324 MG Oral Tablet Ferrous Gluconate 324 (38 Fe) MG Ferrous Gluconate 324 (38 Fe) MG 12/11/2020 12:00:00 AM EDT suspended Ferrous Gluconate 324 (38 Fe) MG eCW1 ([facility]) ferrous gluconate 324 MG Oral Tablet Ferrous Gluconate 324 (38 Fe) MG Ferrous Gluconate 324 (38 Fe) MG 12/11/2020 12:00:00 AM EDT suspended Ferrous Gluconate 324 (38 Fe) MG eCW1 ([facility]) ferrous gluconate 324 MG Oral Tablet Ferrous Gluconate 324 (38 Fe) MG Ferrous Gluconate 324 (38 Fe) MG 12/11/2020 12:00:00 AM EDT active Ferrous Gluconate 324 (38 Fe) MG eCW1 ([facility]) Docusate Sodium 100 MG Oral Tablet Stool Softener 100 MG Sto ol Softener 100 MG 12/11/2020 12:00:00 AM EDT active Stool Softener 100 MG eCW1 ([facility]) Docusate Sodium 100 MG Oral Tablet Stool Softener 100 MG Sto ol Softener 100 MG 12/11/2020 12:00:00 AM EDT suspended Stool Softener 100 MG eCW1 ([facility]) Docusate Sodium 100 MG Oral Tablet Stool Softener 100 MG Sto ol Softener 100 MG 12/11/2020 12:00:00 AM EDT active Stool Softener 100 MG eCW1 ([facility]) ferrous gluconate 324 MG Oral Tablet Ferrous Gluconate 324 (38 Fe) MG Ferrous Gluconate 324 (38 Fe) MG 12/11/2020 12:00:00 AM EDT suspended Ferrous Gluconate 324 (38 Fe) MG eCW1 ([facility]) ferrous gluconate 324 MG Oral Tablet Ferrous Gluconate 324 (38 Fe) MG Ferrous Gluconate 324 (38 Fe) MG 12/11/2020 12:00:00 AM EDT active Ferrous Gluconate 324 (38 Fe) MG eCW1 ([facility]) Docusate Sodium 100 MG Oral Tablet Stool Softener 100 MG Sto ol Softener 100 MG 12/11/2020 12:00:00 AM EDT suspended Stool Softener 100 MG eCW1 ([facility]) ferrous gluconate 324 MG Oral Tablet Ferrous Gluconate 324 (38 Fe) MG Ferrous Gluconate 324 (38 Fe) MG 12/11/2020 12:00:00 AM EDT suspended Ferrous Gluconate 324 (38 Fe) MG eCW1 ([facility]) ferrous gluconate 324 MG Oral Tablet Ferrous Gluconate 324 (38 Fe) MG Ferrous Gluconate 324 (38 Fe) MG 12/11/2020 12:00:00 AM EDT suspended Ferrous Gluconate 324 (38 Fe) MG eCW1 ([facility]) Docusate Sodium 100 MG Oral Tablet Stool Softener 100 MG Sto ol Softener 100 MG 12/11/2020 12:00:00 AM EDT active Stool Softener 100 MG eCW1 ([facility]) Docusate Sodium 100 MG Oral Tablet Stool Softener 100 MG Sto ol Softener 100 MG 12/11/2020 12:00:00 AM EDT suspended Stool Softener 100 MG eCW1 ([facility]) ferrous gluconate 324 MG Oral Tablet Ferrous Gluconate 324 (38 Fe) MG Ferrous Gluconate 324 (38 Fe) MG 12/11/2020 12:00:00 AM EDT active Ferrous Gluconate 324 (38 Fe) MG eCW1 ([facility]) 324 mg (38 mg iron) 12/11/2020 [...] Ferrous Gluconate 324 (38 Fe) MG eCW1 ([facility]) Docusate Sodium 100 MG Oral Tablet Stool Softener 100 MG Sto ol Softener 100 MG 12/11/2020 12:00:00 AM EDT suspended Stool Softener 100 MG eCW1 ([facility]) ferrous gluconate 324 MG Oral Tablet Ferrous Gluconate 324 (38 Fe) MG Ferrous Gluconate 324 (38 Fe) MG 12/11/2020 12:00:00 AM EDT suspended Ferrous Gluconate 324 (38 Fe) MG eCW1 ([facility]) Docusate Sodium 100 MG Oral Tablet Stool Softener 100 MG Sto ol Softener 100 MG 12/11/2020 12:00:00 AM EDT active Stool Softener 100 MG eCW1 ([facility]) 100 mg 12/11/2020 12:00:00 AM EDT capsule 60 TAKE ONE CAPSULE BY MOUTH TWICE A DAY NEEDED FOR CONSTIPATION TAKE ONE CAPSULE BY MOUTH TWICE A DAY NEEDED FOR CONSTIPATION SOLD: 12/14/2020 [facility] Docusate Sodium 100 MG Oral Tablet Stool Softener 100 MG Sto ol Softener 100 MG 12/11/2020 12:00:00 AM EDT suspended Stool Softener 100 MG eCW1 ([facility]) Docusate Sodium 100 MG Oral Tablet Stool Softener 100 MG Sto ol Softener 100 MG 12/11/2020 12:00:00 AM EDT active eCW1 ([facility]) ferrous gluconate 324 MG Oral Tablet Ferrous Gluconate 324 (38 Fe) MG Ferrous Gluconate 324 (38 Fe) MG 12/11/2020 12:00:00 AM EDT active Ferrous Gluconate 324 (38 Fe) MG eCW1 ([facility]) Docusate Sodium 100 MG Oral Tablet Stool Softener 100 MG Sto ol Softener 100 MG 12/11/2020 12:00:00 AM EDT suspended Stool Softener 100 MG eCW1 ([facility]) Labetalol hydrochloride 100 MG Oral Tablet Labetalol H Cl 100 MG Labetalol HCl 100 MG 11/24/2020 12:00:00 AM EDT 1.0 {tablet} activ e Labetalol HCl 100 MG eCW1 ([facility]) Labetalol hydrochloride 100 MG Oral Tablet Labetalol H Cl 100 MG Labetalol HCl 100 MG 11/24/2020 12:00:00 AM EDT 1.0 {tablet} suspe nded Labetalol HCl 100 MG eCW1 ([facility]) 100 mg 11/24/2020 12:00:00 AM EDT tablet 60 TAKE ONE TABLET BY MOUTH TWICE A DAY TAKE ONE TABLET BY MOUTH TWICE A DAY SOLD: 11/25/2020 [facility] Labetalol hydrochloride 100 MG Oral Tablet Labetalol H Cl 100 MG Labetalol HCl 100 MG 11/24/2020 12:00:00 AM EDT 1.0 {tablet} activ e Labetalol HCl 100 MG eCW1 ([facility]) Labetalol hydrochloride 100 MG Oral Tablet Labetalol H Cl 100 MG Labetalol HCl 100 MG 11/24/2020 12:00:00 AM EDT 1.0 {tablet} suspe nded Labetalol HCl 100 MG eCW1 ([facility]) Labetalol hydrochloride 100 MG Oral Tablet Labetalol H Cl 100 MG Labetalol HCl 100 MG 11/24/2020 12:00:00 AM EDT 1.0 {tablet} suspe nded Labetalol HCl 100 MG eCW1 ([facility]) Labetalol hydrochloride 100 MG Oral Tablet Labetalol H Cl 100 MG Labetalol HCl 100 MG 11/24/2020 12:00:00 AM EDT 1.0 {tablet} activ e Labetalol HCl 100 MG eCW1 ([facility]) Labetalol hydrochloride 100 MG Oral Tablet Labetalol H Cl 100 MG Labetalol HCl 100 MG 11/24/2020 12:00:00 AM EDT 1.0 {tablet} activ e Labetalol HCl 100 MG eCW1 ([facility]) Labetalol hydrochloride 100 MG Oral Tablet Labetalol H Cl 100 MG Labetalol HCl 100 MG 11/24/2020 12:00:00 AM EDT 1.0 {tablet} activ e Labetalol HCl 100 MG eCW1 ([facility]) Labetalol hydrochloride 100 MG Oral Tablet Labetalol H Cl 100 MG Labetalol HCl 100 MG 11/24/2020 12:00:00 AM EDT 1.0 {tablet} activ e Labetalol HCl 100 MG eCW1 ([facility]) Labetalol hydrochloride 100 MG Oral Tablet [...] suspe nded Labetalol HCl 100 MG eCW1 ([facility]) Labetalol hydrochloride 100 MG Oral Tablet Labetalol H Cl 100 MG Labetalol HCl 100 MG 11/24/2020 12:00:00 AM EDT 1.0 {tablet} active eCW1 ([facility]) Labetalol hydrochloride 100 MG Oral Tablet Labetalol H Cl 100 MG Labetalol HCl 100 MG 11/24/2020 12:00:00 AM EDT 1.0 {tablet} activ e Labetalol HCl 100 MG eCW1 ([facility]) Labetalol hydrochloride 100 MG Oral Tablet Labetalol H Cl 100 MG Labetalol HCl 100 MG 11/24/2020 12:00:00 AM EDT 1.0 {tablet} suspe nded Labetalol HCl 100 MG eCW1 ([facility]) Labetalol hydrochloride 100 MG Oral Tablet Labetalol H Cl 100 MG Labetalol HCl 100 MG 11/24/2020 12:00:00 AM EDT 1.0 {tablet} suspe nded Labetalol HCl 100 MG eCW1 ([facility]) Labetalol hydrochloride 100 MG Oral Tablet Labetalol H Cl 100 MG Labetalol HCl 100 MG 11/24/2020 12:00:00 AM EDT 1.0 {tablet} suspe nded Labetalol HCl 100 MG eCW1 ([facility]) NITROFURANTOIN, MACROCRYSTALS 25 MG / Ni trofurantoin, Monohydrate 75 MG Oral Capsule [Macrobid] Macrobid 100 MG Macrobid 100 MG 09/24/2020 12:00:00 AM EST 1.0 {capsule} active Macrobid 100 MG eC W1 ([facility]) NITROFURANTOIN, MACROCRYSTALS 25 MG / Ni trofurantoin, Monohydrate 75 MG Oral Capsule [Macrobid] Macrobid 100 MG Macrobid 100 MG 09/24/2020 12:00:00 AM EST 1.0 {capsule} active Macrobid 100 MG eC W1 ([facility]) NITROFURANTOIN, MACROCRYSTALS 25 MG / Ni trofurantoin, Monohydrate 75 MG Oral Capsule [Macrobid] Macrobid 100 MG Macrobid 100 MG 09/24/2020 12:00:00 AM EST 1.0 {capsule} active Macrobid 100 MG eC W1 ([facility]) 100 mg 09/24/2020 12:00:00 AM EST capsule 14 TAKE ONE CAPSULE BY MOUTH TWICE A DAY FOR 7 DAYS TAKE ONE CAPSULE BY MOUTH TWICE A DAY FOR 7 DAYS SOLD: 09/24/2020 [facility] NITROFURANTOIN, MACROCRYSTALS 25 MG / Ni trofurantoin, Monohydrate 75 MG Oral Capsule [Macrobid] Macrobid 100 MG Macrobid 100 MG 09/24/2020 12:00:00 AM EST 1.0 {capsule} suspended Macrobid 100 MG eCW1 ([facility]) 81 mg 09/23/2020 12:00:00 AM EST tablet,delayed release (DR/EC) 30 TAKE ONE TABLET BY MOUTH EVERY DAY TAKE ONE TABLET BY MOUTH EVERY DAY SOLD: 09/24/2020 [facility] 81 mg 09/23/2020 12:00:00 AM EST tablet,delayed release (DR/EC) 30 TAKE ONE TABLET BY MOUTH EVERY DAY TAKE ONE TABLET BY MOUTH EVERY DAY SOLD: 11/06/2020 [facility] Aspirin 81 MG Delayed Release Oral Tablet Aspirin 81 81 MG A spirin 81 81 MG 09/22/2020 12:00:00 AM EST 1.0 {tablet} active Aspirin 81 81 MG eCW1 ([facility]) Aspirin 81 MG Delayed Release Oral Tablet Aspirin 81 81 MG A spirin 81 81 MG 09/22/2020 12:00:00 AM EST 1.0 {tablet} active Aspirin 81 81 MG eCW1 ([facility]) Aspirin 81 MG Delayed Release Oral Tablet Aspirin 81 81 MG A spirin 81 81 MG 09/22/2020 12:00:00 AM EST 1.0 {tablet} active Aspirin 81 81 MG eCW1 ([facility]) Aspirin 81 MG Delayed Release Oral Tablet Aspirin 81 81 MG A spirin 81 81 MG 09/22/2020 12:00:00 AM EST 1.0 {tablet} active Aspirin 81 81 MG eCW1 ([facility]) Aspirin 81 MG Delayed Release Oral Tablet Aspirin 81 81 MG A spirin 81 81 MG 09/22/2020 12:00:00 AM EST 1.0 {tablet} active Aspirin 81 81 MG eCW1 ([facility]) Insurance Providers Payer name Policy type / Coverage type Policy ID Covered alliance party ID Covered alliance party's relationship to hernandez Policy Hernandez Plan [facility] Medigap Part B [id number] [facility] [id number] SP [id number] [facility] Community [facility] Commercial [id number] Self [facility] [id number] SP [id number] [facility] [employer] [id number] SP [id number] [facility] Commercial Insurance Co. [id number] Self [id number] ANSI-Medicaid [id number] ANSI-Medicaid [id number] ANSI-Medicaid [id number] [facility] [id number] [facility] O [id number] S [id number] [facility] Health Maintenance Organization [place] [id number] Self [id number] [place] Medigap Part B [id number] Self [facility] Health Maintenance Organization (O) [id number] Self MEDICAID [id number] SP [id number] MEDICAID M [id number] S [id number] AMERICHOICE UNHC XIX HMO -I/P [id number] 18 [id number] UNHC AMERICHOICE XIX -O [id number] 18 [id number] [facility] [id number] [facility] [id number] FA2 [id number] UNHC COMMUNITY PLAN [facility] [id number] SP [id number] [facility]ITY [facility] [id number] SP [id number] [facility] Health Maintenance Organization (HMO) [id number] Self [id number] ANS-Medicaid [id number] [facility]-Medicaid [id number] [facility]-Medicaid [id number] Problems, Conditions, and Diagnoses Code Display Name Description Problem Type Effective Dates Data Source(s) O10.013 [id number] Essential hypertension affecting in third trimester Problem 02/05/2021 12:00:00 AM EDT eCW1 ([facility]) O10.913 [id number] Pre-existing hyperte nsion affecting in third trimester Problem 01/16/2021 12:00:00 AM EDT eCW1 ([facility]) O16.3 Maternal hypertension Hypertension affecting pre gnancy in third trimester Problem 01/09/2021 12:00:00 AM EDT eCW1 ([facility]) O10.919 [id number] Chronic hypertension affecting Problem 12/05/2020 12:00:00 AM EDT eCW1 ([facility]) O10.012 [id number] Essential hypertension affecting in second trimester Problem 11/23/2020 12:00:00 AM EDT eCW1 ([facility]) E66.01 [id number] Morbid obesity due to excess calories Pro blem 10/01/2020 12:00:00 AM EST eCW1 ([facility]) Z68.43 [id number] BMI 50.0-59.9, adult Problem 10/01/2020 12:0 0:00 AM EST eCW1 ([facility]) O99.212 [id number] Obesity complicating in second trimester Problem 09/21/2020 12:00:00 AM EST eCW1 ([facility]) Z34.80 care Supervision of other normal P roblem 08/16/2020 12:00:00 AM EST eCW1 ([facility]) Surgeries/Procedures No Information Results ID Date Data Source 707 05/27/2021 12:00:00 AM EDT [facility] Name Value Range Interpretation Code Description Data Corrina rce(s) Supporting Document(s) SARS-CoV2 Rapid Antigen [facility] ordered by [facility] and reported by [facility]. ID Date Data Source GROUP B STREP CULTURE 01/30/2021 12:00:00 AM EDT eCW1 ([facility]) Name Value Range Interpretation Code Description Data Corrina rce(s) Supporting Document(s) GROUP B STREP CULTURE eCW1 (Count includes the [facility]) ID Date Data Source Glucose Challenge Test 1 Hour 12/11/2020 12:00:00 AM EDT eCW 1 ([facility]) Name Value Range Interpretation Code Description Data Corrina rce(s) Supporting Document(s) 113 LESS THAN 140 GLUCOSE CHALLENGE TEST 1 HOUR eCW1 ([facility]) ID Date Data Source CBC - Complete Blood Count 12/08/2020 12:00:00 AM EDT eCW1 ( [facility]) Name Value Range Interpretation Code Description Data Corrina rce(s) Supporting Document(s) 4.40 4.00-5.40 eCW1 ([facility]) 7.9 4.0-10.0 eCW1 ([facility]) 79.1 80.0-96.0 eCW1 ([facility]) 10.6 12.0-15.5 eCW1 ([facility]) 34.8 36.0-47.0 eCW1 ([facility]) 30.5 32.0-36.5 eCW1 ([facility]) 24.1 27.0-33.0 eCW1 ([facility]) 15.3 11.5-14.5 eCW1 ([facility]) 236 150-450 eCW1 ([facility]) ID Date Data Source Type and Screen (D Rh Antibody Screen) 12/08/2020 12:00:00 A M EDT eCW1 ([facility]) Name Value Range Interpretation Code Description Data Corrina rce(s) Supporting Document(s) O POSITIVE eCW1 ([facility]) NEGATIVE eCW1 ([facility]) ID Date Data Source WWBC OBS FOLLOW UP OR REPEAT 11/10/2020 12:00:00 AM EDT eCW1 ([facility]) Name Value Range Interpretation Code Description Data Corrina rce(s) Supporting Document(s) WWBC OBS FOLLOW UP OR REPEAT e CW1 ([facility]) ID Date Data Source Pre Eclampsia Profile 09/29/2020 12:00:00 AM EST eCW1 ([facility]) Name Value Range Interpretation Code Description Data Corrina rce(s) Supporting Document(s) 0.58 0.55-1.30 CREATININE FOR GFR eCW1 ([facility]) > 60.0 >60 GLOMERULAR FILTRATION RATE eCW 1 ([facility]) 8 7-37 AST/SGOT eCW1 ([facility]) 17 12-78 ALT/SGPT eCW1 ([facility]) 3.6 2.6-6.0 URIC ACID eCW1 ([facility]) 0.3 0.2-1.0 BILIRUBIN,TOTAL eCW1 ([facility]) 135 84-246 LDH LACTATE DEHYDROGENASE eCW1 ([facility]) ID Date Data Source URINE CULTURE 09/22/2020 12:00:00 AM EST eCW1 ([facility]) Name Value Range Interpretation Code Description Data Corrina rce(s) Supporting Document(s) URINE CULTURE eCW1 ([facility]) ID Date Data Source TOTAL PROTEIN,RANDOM URINE 09/22/2020 12:00:00 AM EST eCW1 ( [facility]) Name Value Range Interpretation Code Description Data Corrina rce(s) Supporting Document(s) 5.8 0.0-12.0 TOTAL PROTEIN,RANDOM URIN E eCW1 ([facility]) ID Date Data Source CREATININE,RANDOM URINE 09/22/2020 12:00:00 AM EST eCW1 (Formerly [facility]) Name Value Range Interpretation Code Description Data Corrina rce(s) Supporting Document(s) 116.0 CREATININE,RANDOM URINE eCW1 ( [facility]) Procedure Social History Code Duration Value Status Description Data Source(s ) Smoking 06/25/2021 12:00:00 AM EST Never Smoker completed Never S moker eCW1 ([facility]) Smoking 06/25/2021 12:00:00 AM EST Never Smoker completed Never S moker eCW1 ([facility]) Smoking 04/04/2021 12:00:00 AM EDT Never Smoker completed Never S moker eCW1 ([facility]) Smoking 04/04/2021 12:00:00 AM EDT Never Smoker completed Never S moker eCW1 ([facility]) Smoking 04/04/2021 12:00:00 AM EDT Never Smoker completed Never S moker eCW1 ([facility]) Smoking 02/21/2021 12:00:00 AM EDT Never Smoker completed Never S moker eCW1 ([facility]) Smoking 02/21/2021 12:00:00 AM EDT Never Smoker completed Never S moker eCW1 ([facility]) Smoking 01/30/2021 12:00:00 AM EDT Never Smoker completed Never S moker eCW1 ([facility]) Smoking 01/17/2021 12:00:00 AM EDT Never Smoker completed Never S moker eCW1 ([facility]) Smoking 01/15/2021 12:00:00 AM EDT Never Smoker completed Never S moker eCW1 ([facility]) Smoking 01/02/2021 12:00:00 AM EDT Never Smoker completed Never S moker eCW1 ([facility]) Smoking 12/15/2020 12:00:00 AM EDT Never Smoker completed Never S moker eCW1 ([facility]) Smoking 12/07/2020 12:00:00 AM EDT Never Smoker completed Never S moker eCW1 ([facility]) Smoking 12/07/2020 12:00:00 AM EDT Never Smoker completed Never S moker eCW1 ([facility]) Smoking 11/24/2020 12:00:00 AM EDT Never Smoker completed Never S moker eCW1 ([facility]) Smoking 10/27/2020 12:00:00 AM EDT Never Smoker completed Never S moker eCW1 ([facility]) Smoking 09/18/2020 12:00:00 AM EST Never Smoker completed Never S moker eCW1 ([facility]) Smoking 09/18/2020 12:00:00 AM EST Never Smoker completed Never S moker eCW1 ([facility]) Smoking 09/18/2020 12:00:00 AM EST Never Smoker completed Never S moker eCW1 ([facility]) Smoking 08/16/2020 12:00:00 AM EST Never Smoker completed Never S moker eCW1 ([facility]) Vital Signs ID Date Data Source UNK Name Value Range Interpretation Code Description Data Source(s) Body weight 292.2 [lb_av] 292.2 [lb_av] eCW1 ([facility]) Body height 62 [in_i] 62 [in_i] eCW1 ([facility]) Body mass index (BMI) [Ratio] 53.44 kg/m2 53.44 kg/m2 eCW1 ([facility]) Systolic blood pressure 130 mm[Hg] 130 mm[Hg] e CW1 ([facility]) Diastolic blood pressure 84 mm[Hg] 84 mm[Hg] eCW1 ([facility]) Body weight 283.6 [lb_av] 283.6 [lb_av] eCW1 ([facility]) Systolic blood pressure 120 mm[Hg] 120 mm[Hg] e CW1 ([facility]) Diastolic blood pressure 78 mm[Hg] 78 mm[Hg] eCW1 ([facility]) Body weight 128.64 kg 128.64 kg eCW1 ([facility]) Body height 62 [in_i] 62 [in_i] eCW1 ([facility]) Body mass index (BMI) [Ratio] 51.87 kg/m2 51.87 kg/m2 eCW1 ([facility]) Body weight 305.5 [lb_av] 305.5 [lb_av] eCW1 ([facility]) Body weight 138.57 kg 138.57 kg eCW1 ([facility]) Body height 62 [in_i] 62 [in_i] eCW1 ([facility]) Body mass index (BMI) [Ratio] 55.877 kg/m2 55.8 77 kg/m2 eCW1 ([facility]) Systolic blood pressure 140 mm[Hg] 140 mm[Hg] e CW1 ([facility]) Diastolic blood pressure 80 mm[Hg] 80 mm[Hg] eCW1 ([facility]) Body weight 303 [lb_av] 303 [lb_av] eCW1 ([facility]) Body height 62 [in_i] 62 [in_i] eCW1 ([facility]) Body mass index (BMI) [Ratio] 55.41 kg/m2 55.41 kg/m2 eCW1 ([facility]) Systolic blood pressure 126 mm[Hg] 126 mm[Hg] e CW1 ([facility]) Diastolic blood pressure 80 mm[Hg] 80 mm[Hg] eCW1 ([facility]) Body weight 303 [lb_av] 303 [lb_av] eCW1 ([facility]) Systolic blood pressure 132 mm[Hg] 132 mm[Hg] e CW1 ([facility]) Diastolic blood pressure 72 mm[Hg] 72 mm[Hg] eCW1 ([facility]) Body height 62 [in_i] 62 [in_i] eCW1 ([facility]) Body mass index (BMI) [Ratio] 55.419 kg/m2 55.4 19 kg/m2 eCW1 ([facility]) Body weight 303 [lb_av] 303 [lb_av] eCW1 ([facility]) Body height 62 [in_i] 62 [in_i] eCW1 ([facility]) Body mass index (BMI) [Ratio] 55.419 kg/m2 55.4 19 kg/m2 eCW1 ([facility]) Systolic blood pressure 136 mm[Hg] 136 mm[Hg] e CW1 ([facility]) Diastolic blood pressure 84 mm[Hg] 84 mm[Hg] eCW1 ([facility]) Body weight 305.6 [lb_av] 305.6 [lb_av] eCW1 ([facility]) Body height 62 [in_i] 62 [in_i] eCW1 ([facility]) Body mass index (BMI) [Ratio] 55.895 kg/m2 55.8 95 kg/m2 eCW1 ([facility]) Systolic blood pressure 134 mm[Hg] 134 mm[Hg] e CW1 ([facility]) Diastolic blood pressure 78 mm[Hg] 78 mm[Hg] eCW1 ([facility]) Body weight 305.8 [lb_av] 305.8 [lb_av] eCW1 ([facility]) Body weight 138.71 kg 138.71 kg eCW1 ([facility]) Body height 62 [in_i] 62 [in_i] eCW1 ([facility]) Body mass index (BMI) [Ratio] 55.932 kg/m2 55.9 32 kg/m2 eCW1 ([facility]) Systolic blood pressure 132 mm[Hg] 132 mm[Hg] e CW1 ([facility]) Diastolic blood pressure 76 mm[Hg] 76 mm[Hg] eCW1 ([facility]) Body weight 303.4 [lb_av] 303.4 [lb_av] eCW1 ([facility]) Systolic blood pressure 160 mm[Hg] 160 mm[Hg] e CW1 ([facility]) Body weight 137.62 kg 137.62 kg eCW1 ([facility]) Body height 62 [in_i] 62 [in_i] eCW1 ([facility]) Body mass index (BMI) [Ratio] 55.493 kg/m2 55.4 93 kg/m2 eCW1 ([facility]) Diastolic blood pressure 80 mm[Hg] 80 mm[Hg] eCW1 ([facility]) Body weight 303.8 [lb_av] 303.8 [lb_av] eCW1 ([facility]) Body height 62 [in_i] 62 [in_i] eCW1 ([facility]) Body mass index (BMI) [Ratio] 55.566 kg/m2 55.5 66 kg/m2 eCW1 ([facility]) Systolic blood pressure 132 mm[Hg] 132 mm[Hg] e CW1 ([facility]) Diastolic blood pressure 76 mm[Hg] 76 mm[Hg] eCW1 ([facility]) Body weight 301 [lb_av] 301 [lb_av] eCW1 ([facility]) Body height 62 [in_i] 62 [in_i] eCW1 ([facility]) Body mass index (BMI) [Ratio] 55.054 kg/m2 55.0 54 kg/m2 eCW1 ([facility]) Systolic blood pressure 140 mm[Hg] 140 mm[Hg] e CW1 ([facility]) Diastolic blood pressure 80 mm[Hg] 80 mm[Hg] eCW1 ([facility]) Body weight 296 [lb_av] 296 [lb_av] eCW1 ([facility]) Body height 62 [in_i] 62 [in_i] eCW1 ([facility]) Body mass index (BMI) [Ratio] 54.139 kg/m2 54.1 39 kg/m2 eCW1 ([facility]) Systolic blood pressure 126 mm[Hg] 126 mm[Hg] e CW1 ([facility]) Diastolic blood pressure 86 mm[Hg] 86 mm[Hg] eCW1 ([facility]) Patient Treatment Plan of Care Planned Activity Planned Date Details Description Data Source (s) ferrous gluconate 324 MG Oral Tablet 12/11/2020 12:00:00 AM EDT eCW1 ([facility]) Docusate Sodium 100 MG Oral Tablet 12/11/2020 12:00:00 AM EDT eCW1 ([facility]) ferrous gluconate 324 MG Oral Tablet 12/11/2020 12:00:00 AM EDT eCW1 ([facility]) Docusate Sodium 100 MG Oral Tablet 12/11/2020 12:00:00 AM EDT eCW1 ([facility]) ferrous gluconate 324 MG Oral Tablet 12/11/2020 12:00:00 AM EDT eCW1 ([facility]) Docusate Sodium 100 MG Oral Tablet 12/11/2020 12:00:00 AM EDT eCW1 ([facility]) Labetalol hydrochloride 100 MG Oral Tablet 11/24/2020 12:00:00 AM E DT eCW1 ([facility]) NITROFURANTOIN, MACROCRYSTALS 25 MG / Ni trofurantoin, Monohydrate 75 MG Oral Capsule [Macrobid] 09/24/2020 12:00:00 AM EST eC W1 ([facility]) NITROFURANTOIN, MACROCRYSTALS 25 MG / Ni trofurantoin, Monohydrate 75 MG Oral Capsule [Macrobid] 09/24/2020 12:00:00 AM EST eC W1 ([facility]) Aspirin 81 MG Delayed Release Oral Tablet 09/22/2020 12:00:00 AM ES T eCW1 ([facility]) Aspirin 81 MG Delayed Release Oral Tablet 09/22/2020 12:00:00 AM ES T eCW1 ([facility]) Aspirin 81 MG Delayed Release Oral Tablet 09/22/2020 12:00:00 AM ES T eCW1 ([facility])
--- OUTSIDE RECORDS SUMMARY | 2021-07-05 17:06 | CCD ---
Author Author [facility] Organization [facility] Address Unknown Phone Unavailable Care Team Providers Care Field Support Technician Name Role Phone Roosevelt Galvez Unavailable PROBLEMS Type Condition ICD9-CM Code [id number] Code Onset Dates Condition S tatus W/U Status Risk SNOMED Code Notes Problem Hyperlipidemia E78.5 Active confirmed 53013 004 Problem Vitamin D deficiency, unspecified E55.9 Active con firmed 62846203 Problem Obesity E66.9 Active confirmed 727088809 Problem Supervision of other normal Z34.80 Ac tive confirm 321046720 Problem Obesity complicating in second trimester O99.212 Active confirmed 278128747481 Problem BMI 50.0-59.9, adult Z68.43 Active confirmed 946920737 Problem Pre-existing hypertension affecting in third trimester O10.913 Active confirmed 541168366 Problem Irregular menstrual cycle N92.6 Active confirmed 28564461 Problem Essential hypertension affecting in third tr imester O10.013 Active confirmed 86168496 Problem PCOS (polycystic ovarian syndrome) E28.2 Activ e confirmed 54033800 Problem Morbid obesity due to excess calories E66.01 Ac tive confirmed 222018632 Problem Essential hypertension affecting in se cond trimester O10.012 Active confirmed 52920711 Problem Chronic hypertension affecting O10.919 Active confirmed 06058966 Problem Hypertension affecting in third trimester O16.3 Active confirmed 390083089 ALLERGIES No Known Allergies ENCOUNTERS from 1991 to 2021-07-02 Encounter Location Date Provider Diagnosis [facility] Resident [address] [facility] [address] [phone] [place] [address] Jun, Roosevelt Galvez IMMUNIZATIONS No Information SOCIAL HISTORY Tobacco Use: Social History Observation Description Date Details (start date - stop date) Never Smoker Sex Assigned At : Social History Observation Description Sex Assigned At Unknown Language: Question Answer Notes Languages spoken: Turkish Alcohol Screening: Question Answer Notes Did you [...] Information RESULTS No Results REASON FOR VISIT No Information MEDICAL (GENERAL) HISTORY Type Description Date Medical History -2008 Medical History Hirsutism Medical History Irregualr menstrual bleeding Medical History IFG Medical History Gestational hypertensive Surgical History c section Surgical History tonsillectomy age 18 Surgical History right arm fx repair age 11 Surgical History c section x3 Surgical History gall bladder Surgical History tubes tied in 2020 Hospitalization History childbirth Goals Section No Information Health Concerns No Information MEDICAL EQUIPMENT No Information MENTAL STATUS No Information FUNCTIONAL STATUS No Information ASSESSMENTS No Information PLAN OF TREATMENT No Information Insurance Providers Payer Name Payer Address Payer Phone Insured Name Patient Relati onship to Insured Coverage Start Date Coverage End Date [facility] [address] [facility] [phone] ISAI LAWRENCE self
--- OUTSIDE RECORDS SUMMARY | 2021-07-05 17:06 | CCD ---
Author Author [facility] Organization [facility] Address Unknown Phone Unavailable Care Team Providers Care Supervisor [employer] Name Role Phone Roosevelt Galvez Unavailable PROBLEMS Type Condition ICD9-CM Code [id number] Code Onset Dates Condition S tatus W/U Status Risk SNOMED Code Notes Problem Hyperlipidemia E78.5 Active confirmed 43159 004 Problem Vitamin D deficiency, unspecified E55.9 Active con firmed 55915929 Problem Obesity E66.9 Active confirmed 770961145 Problem Supervision of other normal Z34.80 Ac tive confirm 158672135 Problem Obesity complicating in second trimester O99.212 Active confirmed 235497183549 Problem BMI 50.0-59.9, adult Z68.43 Active confirmed 429977160 Problem Pre-existing hypertension affecting in third trimester O10.913 Active confirmed 554019117 Problem Irregular menstrual cycle N92.6 Active confirmed 03931052 Problem Essential hypertension affecting in third tr imester O10.013 Active confirmed 18519617 Problem PCOS (polycystic ovarian syndrome) E28.2 Activ e confirmed 99148767 Problem Morbid obesity due to excess calories E66.01 Ac tive confirmed 222736474 Problem Essential hypertension affecting in se cond trimester O10.012 Active confirmed 52677393 Problem Chronic hypertension affecting O10.919 Active confirmed 34822711 Problem Hypertension affecting in third trimester O16.3 Active confirmed 081793090 ALLERGIES No Known Allergies ENCOUNTERS from 1991 to 2021-06-22 Encounter Location Date Provider Diagnosis [address] [phone] [place] [phone] Jun, Roosevelt Galvez IMMUNIZATIONS No Information SOCIAL HISTORY Tobacco Use: Social History Observation Description Date Details (start date - stop date) Never Smoker Sex Assigned At : Social History Observation Description Sex Assigned At Unknown Language: Question Answer Notes Languages spoken: Welsh Alcohol Screening: Question Answer Notes Did you [...] Information RESULTS No Results REASON FOR VISIT referral MEDICAL (GENERAL) HISTORY Type Description Date Medical History PCOS-2008 Medical History Hirsutism Medical History Irregualr menstrual bleeding Medical History IFG Medical History Gestational hypertensive Surgical History c section Hospitalization History child Goals Section No Information Health Concerns No Information MEDICAL EQUIPMENT No Information MENTAL STATUS No Information FUNCTIONAL STATUS No Information ASSESSMENTS No Information PLAN OF TREATMENT Next Appt Details Provider Name:Roosevelt Galvez, 2021-06-25 0 1:45:00 PM, [address] [facility], , [place], [address], Insurance Providers Payer Name Payer Address Payer Phone Insured Name Patient Relati onship to Insured Coverage Start Date Coverage End Date [facility] [address] [place] [phone] ISAI LAWRENCE self
--- OUTSIDE RECORDS SUMMARY | 2021-07-05 17:06 | CCD ---
Author Author [facility] Organization [facility] Address Unknown Phone Unavailable Care Team Providers Care Lottery Sales Clerk Name Role Phone Lenny Roosevelt Unavailable PROBLEMS Type Condition ICD9-CM Code [id number] Code Onset Dates Condition S tatus W/U Status Risk SNOMED Code Notes Problem Hyperlipidemia E78.5 Active confirmed 56013 004 Problem Vitamin D deficiency, unspecified E55.9 Active con firmed 71053296 Problem Obesity E66.9 Active confirmed 027664153 Problem Supervision of other normal Z34.80 Ac tive confirm 327761369 Problem Obesity complicating in second trimester O99.212 Active confirmed 317527960535 Problem BMI 50.0-59.9, adult Z68.43 Active confirmed 039893714 Problem Pre-existing hypertension affecting in third trimester O10.913 Active confirmed 912732391 Problem Irregular menstrual cycle N92.6 Active confirmed 64677274 Problem Essential hypertension affecting in third tr imester O10.013 Active confirmed 74060971 Problem PCOS (polycystic ovarian syndrome) E28.2 Activ e confirmed 94084063 Problem Morbid obesity due to excess calories E66.01 Ac tive confirmed 176201774 Problem Essential hypertension affecting in se cond trimester O10.012 Active confirmed 52268362 Problem Chronic hypertension affecting O10.919 Active confirmed 22163303 Problem Hypertension affecting in third trimester O16.3 Active confirmed 094728256 ALLERGIES No Known Allergies ENCOUNTERS from 1991 to 2021-07-02 Encounter Location Date Provider Diagnosis [facility] Resident [address] [facility] [address] [phone] [place] [address] Jun, Roosevelt Galvez Elevated TSH R79.89 IMMUNIZATIONS No Information SOCIAL HISTORY Tobacco Use: Social History Observation Description Date Details (start date - stop date) Never Smoker Sex Assigned At : Social History Observation Description Sex Assigned At Unknown Language: Question Answer Notes Languages spoken: [place] Alcohol Screening: Question Answer Notes Did you [...] Notes Treatment Notes Treatm ent Clinical Notes Jun, Elevated TSH (ICD-10 - R79.89) Elevated TSH in the 4's with baseline in the 1's wnl. Will get a T4 on her to confirm hypothyroidism before starting meds. PLAN OF TREATMENT Treatment Notes Assessment Notes Clinical Notes Elevated TSH Elevated TSH in the 4's with baseline in the 1's wnl. Will get a T4 on her to confirm hypothyroidism before starting meds. Pending Tests Test Name Order Date FREE T4 2021-07-02 Insurance Providers Payer Name Payer Address Payer Phone Insured Name Patient Relati onship to Insured Coverage Start Date Coverage End Date [facility] [address] [facility] [phone] ISAI LAWRENCE self
--- OUTSIDE RECORDS SUMMARY | 2021-07-06 08:08 | CCD ---
Author Author [facility] Organization [facility] Address Unknown Phone Unavailable Care Team Providers Care Engineering Recruiter Name Role Phone Maren Pederson PA Unavailable [...] is protected by Article 27-F of the [place] Public Health law. If you continue you may have access to information: Regarding HIV / AIDS; Provided by facilities licensed or operated by the [place] [facility] Office of Mental Health; or Provided by the [place] [facility] Office for People With Developmental Disabilities. If such information is present, then the following [place] [facility] mandated warning applies: This information has been [...] law may result in a fine or chcf sentence or both. A general authorization for [...] Date Indications Data Source(s ) Unknown [address] [address] 07/02/2021 12:00:00 AM EST eCW1 ([facility]) Unknown [address] [address] 07/02/2021 12:00:00 AM EST eCW1 ([facility]) Unknown [address] [address] 06/20/2021 12:00:00 AM EST eCW1 ([facility]) Unknown [address] [address] 06/20/2021 12:00:00 AM EST eCW1 ([facility]) ( ESTOB) enter Est OB [address] [place] [address] 04/04/2021 12:00:00 AM EDT eCW1 ([facility]) Outpatient Attender: Marissa LUNDBERG 021 04:27:56 PM EDT - 03/20/2021 05:20:06 PM EDT DocuTap ([facility] ) (WC ESTOB) enter Est OB [address] [place] [address] 02/21/2021 12:00:00 AM EDT eCW1 ([facility]) (WC COB) WCenter Complicated OB [address] [place] [address] 02/07/2021 12:00:00 AM EDT eCW1 ([facility]) (WC ESTOB) WCenter Est OB [address] [place] [address] 01/30/2021 12:00:00 AM EDT eCW1 ([facility]) (WC ESTOB) WCenter Est OB [address] [place] [address] 01/16/2021 12:00:00 AM EDT eCW1 ([facility]) (WC ESTOB) WCenter Est OB [address] [place] [address] 01/09/2021 12:00:00 AM EDT eCW1 ([facility]) (WC ESTOB) WCenter Est OB [address] [place] [address] 12/22/2020 12:00:00 AM EDT eCW1 ([facility]) Unknown [address] [facility] [address] 12/11/2020 12:00:00 AM EDT eCW1 ([facility]) (WC ESTOB) WCenter Est OB [address] [place] [address] 12/08/2020 12:00:00 AM EDT eCW1 ([facility]) (WC ESTOB) WCenter Est OB [address] [place] [address] 12/05/2020 12:00:00 AM EDT eCW1 ([facility]) (WC ESTOB) WCenter Est OB [address] [place] [address] 11/24/2020 12:00:00 AM EDT eCW1 ([facility]) (WC ESTOB) WCenter Est OB [address] [place] [address] 10/27/2020 12:00:00 AM EDT eCW1 ([facility]) [place] [address] [facility] [address] 09/24/2020 12:00:00 AM EST eCW1 ([facility]) ( ESTOB) WCenter Est OB [address] [place] [address] 09/22/2020 12:00:00 AM EST eCW1 ([facility]) Unknown [address] [facility] [address] 09/20/2020 12:00:00 AM EST eCW1 ([facility]) ( ESTOB) WCenter Est OB [address] [place] [address] 08/16/2020 12:00:00 AM EST eCW1 ([facility]) Immunizations Vaccine Date Status Description Data Source(s) COVID-19 VACCINE Pfizer 05/20/2021 12:00:00 AM EDT completed [facility] Vaccine Series Complete: YESThis Data wa s Submitted to [facility]. COVID-19 VACC, MRNA(PFIZER)/PF 05/20/2021 12:00:00 AM EDT completed [facility] COVID-19 VACC, MRNA(PFIZER)/PF 04/29/2021 12:00:00 AM EDT completed [facility] COVID-19 VACCINE Pfizer 04/29/2021 12:00:00 AM EDT completed [facility] Vaccine Series Complete: NOThis Data was Submitted to [facility]. Medications Medication Brand Name Start Date Product Form Dose Route Admi nistrative Instructions Pharmacy Instructions Status Indications Reaction Description Data Source(s) 875 mg 06/22/2021 12:00:00 AM EST tablet 14 TAKE ONE TABLET BY MOUTH EVERY 12 HOURS FOR 7 DAYS TAKE ONE TABLET BY MOUTH EVERY 12 HOURS FOR 7 DAYS JOLENE [facility] Polymyxin B 50898 UNT/ML / Trimethoprim 1 MG/ML Ophthalmic Solution 10,000 unit- 1 mg/mL POLYMYXIN B SULF/TRIMETHOPRIM 05/29/2021 12:00:00 AM EDT drops 1 0 INSTILL 1-2 DROPS IN THE LEFT EYE EVERY 6 HOURS FOR 7 DAYS INSTILL 1-2 DROPS IN THE LEFT EYE EVERY 6 HOURS FOR 7 DAYS SOLD: 05/29/2021 [facility] Clindamycin 150 MG Oral Capsule CLINDAMYCIN HCL 05/29/2021 12:00 :00 AM EDT capsule 60 TAKE TWO CAPSULES BY MOUTH THREE TIMES A DAY TAKE TWO CAPSULES BY MOUTH THREE TIMES A DAY SOLD: 05/29/2021 [facility] 800-160 mg 03/20/2021 12:00:00 AM EDT tablet 20 TAKE ONE TABLET BY MOUTH TWICE A DAY FOR 10 DAYS TAKE ONE TABLET BY MOUTH TWICE A DAY FOR 10 DAYS SOLD: 03/21/2021 [facility] 5-325 mg 02/13/2021 12:00:00 AM EDT tablet 20 TAKE ONE TABLET BY MOUTH THREE TIMES A DAY NEEDED FOR PAIN MAXIMUM DAILY DOSE = 3 TAKE ONE TABLET BY MOUTH THREE TIMES A DAY NEEDED FOR PAIN MAXIMUM DAILY DOSE = 3 SOLD: 02/13/2021 [facility] 800 mg 02/13/2021 12:00:00 AM EDT tablet 30 TAKE ONE TABLET BY MOUTH EVERY 8 HOURS TAKE ONE TABLET BY MOUTH EVERY 8 HOURS SOLD: 02/13/2021 [facility] Docusate Sodium 100 MG Oral Tablet Stool Softener 100 MG Sto ol Softener 100 MG 12/11/2020 12:00:00 AM EDT active Stool Softener 100 MG eCW1 ([facility]) ferrous gluconate 324 MG Oral Tablet Ferrous Gluconate 324 (38 Fe) MG Ferrous Gluconate 324 (38 Fe) MG 12/11/2020 12:00:00 AM EDT active eCW1 ([facility]) Docusate Sodium 100 MG Oral Tablet Stool Softener 100 MG Sto ol Softener 100 MG 12/11/2020 12:00:00 AM EDT active Stool Softener 100 MG eCW1 ([facility]) Docusate Sodium 100 MG Oral Tablet Stool Softener 100 MG Sto ol Softener 100 MG 12/11/2020 12:00:00 AM EDT suspended Stool Softener 100 MG eCW1 ([facility]) ferrous gluconate 324 MG Oral Tablet Ferrous Gluconate 324 (38 Fe) MG Ferrous Gluconate 324 (38 Fe) MG 12/11/2020 12:00:00 AM EDT active Ferrous Gluconate 324 (38 Fe) MG eCW1 ([facility]) ferrous gluconate 324 MG Oral Tablet Ferrous Gluconate 324 (38 Fe) MG Ferrous Gluconate 324 (38 Fe) MG 12/11/2020 12:00:00 AM EDT suspended Ferrous Gluconate 324 (38 Fe) MG eCW1 ([facility]) ferrous gluconate 324 MG Oral Tablet Ferrous Gluconate 324 (38 Fe) MG Ferrous Gluconate 324 (38 Fe) MG 12/11/2020 12:00:00 AM EDT suspended Ferrous Gluconate 324 (38 Fe) MG eCW1 ([facility]) ferrous gluconate 324 MG Oral Tablet Ferrous Gluconate 324 (38 Fe) MG Ferrous Gluconate 324 (38 Fe) MG 12/11/2020 12:00:00 AM EDT suspended Ferrous Gluconate 324 (38 Fe) MG eCW1 ([facility]) ferrous gluconate 324 MG Oral Tablet Ferrous Gluconate 324 (38 Fe) MG Ferrous Gluconate 324 (38 Fe) MG 12/11/2020 12:00:00 AM EDT active Ferrous Gluconate 324 (38 Fe) MG eCW1 ([facility]) Docusate Sodium 100 MG Oral Tablet Stool Softener 100 MG Sto ol Softener 100 MG 12/11/2020 12:00:00 AM EDT active Stool Softener 100 MG eCW1 ([facility]) Docusate Sodium 100 MG Oral Tablet Stool Softener 100 MG Sto ol Softener 100 MG 12/11/2020 12:00:00 AM EDT suspended Stool Softener 100 MG eCW1 ([facility]) Docusate Sodium 100 MG Oral Tablet Stool Softener 100 MG Sto ol Softener 100 MG 12/11/2020 12:00:00 AM EDT active Stool Softener 100 MG eCW1 ([facility]) ferrous gluconate 324 MG Oral Tablet Ferrous Gluconate 324 (38 Fe) MG Ferrous Gluconate 324 (38 Fe) MG 12/11/2020 12:00:00 AM EDT suspended Ferrous Gluconate 324 (38 Fe) MG eCW1 ([facility]) ferrous gluconate 324 MG Oral Tablet Ferrous Gluconate 324 (38 Fe) MG Ferrous Gluconate 324 (38 Fe) MG 12/11/2020 12:00:00 AM EDT active Ferrous Gluconate 324 (38 Fe) MG eCW1 ([facility]) Docusate Sodium 100 MG Oral Tablet Stool Softener 100 MG Sto ol Softener 100 MG 12/11/2020 12:00:00 AM EDT suspended Stool Softener 100 MG eCW1 ([facility]) ferrous gluconate 324 MG Oral Tablet Ferrous Gluconate 324 (38 Fe) MG Ferrous Gluconate 324 (38 Fe) MG 12/11/2020 12:00:00 AM EDT suspended Ferrous Gluconate 324 (38 Fe) MG eCW1 ([facility]) ferrous gluconate 324 MG Oral Tablet Ferrous Gluconate 324 (38 Fe) MG Ferrous Gluconate 324 (38 Fe) MG 12/11/2020 12:00:00 AM EDT suspended Ferrous Gluconate 324 (38 Fe) MG eCW1 ([facility]) Docusate Sodium 100 MG Oral Tablet Stool Softener 100 MG Sto ol Softener 100 MG 12/11/2020 12:00:00 AM EDT active Stool Softener 100 MG eCW1 ([facility]) Docusate Sodium 100 MG Oral Tablet Stool Softener 100 MG Sto ol Softener 100 MG 12/11/2020 12:00:00 AM EDT suspended Stool Softener 100 MG eCW1 ([facility]) ferrous gluconate 324 MG Oral Tablet Ferrous Gluconate 324 (38 Fe) MG Ferrous Gluconate 324 (38 Fe) MG 12/11/2020 12:00:00 AM EDT active Ferrous Gluconate 324 (38 Fe) MG eCW1 ([facility]) 324 mg (38 mg iron) 12/11/2020 12:00:00 [...] Ferrous Gluconate 324 (38 Fe) MG eCW1 ([facility]) Docusate Sodium 100 MG Oral Tablet Stool Softener 100 MG Sto ol Softener 100 MG 12/11/2020 12:00:00 AM EDT suspended Stool Softener 100 MG eCW1 ([facility]) ferrous gluconate 324 MG Oral Tablet Ferrous Gluconate 324 (38 Fe) MG Ferrous Gluconate 324 (38 Fe) MG 12/11/2020 12:00:00 AM EDT suspended Ferrous Gluconate 324 (38 Fe) MG eCW1 ([facility]) Docusate Sodium 100 MG Oral Tablet Stool Softener 100 MG Sto ol Softener 100 MG 12/11/2020 12:00:00 AM EDT active Stool Softener 100 MG eCW1 ([facility]) 100 mg 12/11/2020 12:00:00 AM EDT capsule 60 TAKE ONE CAPSULE BY MOUTH TWICE A DAY NEEDED FOR CONSTIPATION TAKE ONE CAPSULE BY MOUTH TWICE A DAY NEEDED FOR CONSTIPATION SOLD: 12/14/2020 [facility] Docusate Sodium 100 MG Oral Tablet Stool Softener 100 MG Sto ol Softener 100 MG 12/11/2020 12:00:00 AM EDT suspended Stool Softener 100 MG eCW1 ([facility]) Docusate Sodium 100 MG Oral Tablet Stool Softener 100 MG Sto ol Softener 100 MG 12/11/2020 12:00:00 AM EDT active eCW1 ([facility]) ferrous gluconate 324 MG Oral Tablet Ferrous Gluconate 324 (38 Fe) MG Ferrous Gluconate 324 (38 Fe) MG 12/11/2020 12:00:00 AM EDT active Ferrous Gluconate 324 (38 Fe) MG eCW1 ([facility]) Docusate Sodium 100 MG Oral Tablet Stool Softener 100 MG Sto ol Softener 100 MG 12/11/2020 12:00:00 AM EDT suspended Stool Softener 100 MG eCW1 ([facility]) Labetalol hydrochloride 100 MG Oral Tablet Labetalol H Cl 100 MG Labetalol HCl 100 MG 11/24/2020 12:00:00 AM EDT 1.0 {tablet} activ e Labetalol HCl 100 MG eCW1 ([facility]) Labetalol hydrochloride 100 MG Oral Tablet Labetalol H Cl 100 MG Labetalol HCl 100 MG 11/24/2020 12:00:00 AM EDT 1.0 {tablet} suspe nded Labetalol HCl 100 MG eCW1 ([facility]) 100 mg 11/24/2020 12:00:00 AM EDT tablet 60 TAKE ONE TABLET BY MOUTH TWICE A DAY TAKE ONE TABLET BY MOUTH TWICE A DAY SOLD: 11/25/2020 [facility] Labetalol hydrochloride 100 MG Oral Tablet Labetalol H Cl 100 MG Labetalol HCl 100 MG 11/24/2020 12:00:00 AM EDT 1.0 {tablet} activ e Labetalol HCl 100 MG eCW1 ([facility]) Labetalol hydrochloride 100 MG Oral Tablet Labetalol H Cl 100 MG Labetalol HCl 100 MG 11/24/2020 12:00:00 AM EDT 1.0 {tablet} suspe nded Labetalol HCl 100 MG eCW1 ([facility]) Labetalol hydrochloride 100 MG Oral Tablet Labetalol H Cl 100 MG Labetalol HCl 100 MG 11/24/2020 12:00:00 AM EDT 1.0 {tablet} suspe nded Labetalol HCl 100 MG eCW1 ([facility]) Labetalol hydrochloride 100 MG Oral Tablet Labetalol H Cl 100 MG Labetalol HCl 100 MG 11/24/2020 12:00:00 AM EDT 1.0 {tablet} activ e Labetalol HCl 100 MG eCW1 ([facility]) Labetalol hydrochloride 100 MG Oral Tablet Labetalol H Cl 100 MG Labetalol HCl 100 MG 11/24/2020 12:00:00 AM EDT 1.0 {tablet} activ e Labetalol HCl 100 MG eCW1 ([facility]) Labetalol hydrochloride 100 MG Oral Tablet Labetalol H Cl 100 MG Labetalol HCl 100 MG 11/24/2020 12:00:00 AM EDT 1.0 {tablet} activ e Labetalol HCl 100 MG eCW1 ([facility]) Labetalol hydrochloride 100 MG Oral Tablet Labetalol H Cl 100 MG Labetalol HCl 100 MG 11/24/2020 12:00:00 AM EDT 1.0 {tablet} activ e Labetalol HCl 100 MG eCW1 ([facility]) Labetalol hydrochloride 100 MG Oral Tablet LABETALOL [...] suspe nded Labetalol HCl 100 MG eCW1 ([facility]) Labetalol hydrochloride 100 MG Oral Tablet Labetalol H Cl 100 MG Labetalol HCl 100 MG 11/24/2020 12:00:00 AM EDT 1.0 {tablet} active eCW1 ([facility]) Labetalol hydrochloride 100 MG Oral Tablet Labetalol H Cl 100 MG Labetalol HCl 100 MG 11/24/2020 12:00:00 AM EDT 1.0 {tablet} activ e Labetalol HCl 100 MG eCW1 ([facility]) Labetalol hydrochloride 100 MG Oral Tablet Labetalol H Cl 100 MG Labetalol HCl 100 MG 11/24/2020 12:00:00 AM EDT 1.0 {tablet} suspe nded Labetalol HCl 100 MG eCW1 ([facility]) Labetalol hydrochloride 100 MG Oral Tablet Labetalol H Cl 100 MG Labetalol HCl 100 MG 11/24/2020 12:00:00 AM EDT 1.0 {tablet} suspe nded Labetalol HCl 100 MG eCW1 ([facility]) Labetalol hydrochloride 100 MG Oral Tablet Labetalol H Cl 100 MG Labetalol HCl 100 MG 11/24/2020 12:00:00 AM EDT 1.0 {tablet} suspe nded Labetalol HCl 100 MG eCW1 ([facility]) NITROFURANTOIN, MACROCRYSTALS 25 MG / Ni trofurantoin, Monohydrate 75 MG Oral Capsule [Macrobid] Macrobid 100 MG Macrobid 100 MG 09/24/2020 12:00:00 AM EST 1.0 {capsule} active Macrobid 100 MG eC W1 ([facility]) NITROFURANTOIN, MACROCRYSTALS 25 MG / Ni trofurantoin, Monohydrate 75 MG Oral Capsule [Macrobid] Macrobid 100 MG Macrobid 100 MG 09/24/2020 12:00:00 AM EST 1.0 {capsule} active Macrobid 100 MG eC W1 ([facility]) NITROFURANTOIN, MACROCRYSTALS 25 MG / Ni trofurantoin, Monohydrate 75 MG Oral Capsule [Macrobid] Macrobid 100 MG Macrobid 100 MG 09/24/2020 12:00:00 AM EST 1.0 {capsule} active Macrobid 100 MG eC W1 ([facility]) 100 mg 09/24/2020 12:00:00 AM EST capsule [...] 1.0 {capsule} suspended Macrobid 100 MG eCW1 ([facility]) 81 mg 09/23/2020 12:00:00 AM EST tablet,delayed [...] {tablet} active Aspirin 81 81 MG eCW1 ([facility]) Aspirin 81 MG Delayed Release Oral Tablet Aspirin 81 81 MG A spirin 81 81 MG 09/22/2020 12:00:00 AM EST 1.0 {tablet} active Aspirin 81 81 MG eCW1 ([facility]) Aspirin 81 MG Delayed Release Oral Tablet Aspirin 81 81 MG A spirin 81 81 MG 09/22/2020 12:00:00 AM EST 1.0 {tablet} active Aspirin 81 81 MG eCW1 ([facility]) Aspirin 81 MG Delayed Release Oral Tablet Aspirin 81 81 MG A spirin 81 81 MG 09/22/2020 12:00:00 AM EST 1.0 {tablet} active Aspirin 81 81 MG eCW1 ([facility]) Aspirin 81 MG Delayed Release Oral Tablet Aspirin 81 81 MG A spirin 81 81 MG 09/22/2020 12:00:00 AM EST 1.0 {tablet} active Aspirin 81 81 MG eCW1 ([facility]) Insurance Providers Payer name Policy type / Coverage type Policy ID Covered republican ID Covered republican's relationship to hernandez Policy Hernandez Plan [facility] Medigap Part B [id number] [facility] COMMUNITY PLAN [facility] [id number] SP [id number] [facility] Community Plan Commercial [id number] Self [facility] COMMUNITY PLAN [facility] [id number] SP [id number] [facility] COMMUNITY PLAN [facility] [id number] SP [id number] [facility] Commercial Insurance Co. [id number] Self [id number] ANSI-Medicaid [id number] ANSI-Medicaid [id number] ANSI-Medicaid [id number] [facility] [id number] [facility] O [id number] S [id number] [facility] Health Maintenance Organization ([facility]) [id number] Self [id number] [place] Medig[place] Part B [id number] Self [facility] Health Maintenance Organization (O) [id number] Self MEDICAID [id number] SP [id number] MEDICAID M [id number] S [id number] AMERICHOICE UNHC XIX HMO -I/P [id number] 18 [id number] UNHC AMERICHOICE XIX -O [id number] 18 [id number] [facility] [id number] 2 [id number] [facility] [id number] FA2 [id number] UNHC COMMUNITY PLAN [facility] [id number] SP [id number] [facility] [id number] SP [id number] [facility] Health Maintenance Organization (HMO) [id number] Self [id number] ANS-Medicaid [id number] [facility]-Medicaid [id number] [facility]-Medicaid [id number] Problems, Conditions, and Diagnoses Code Display Name Description Problem Type Effective Dates Data Source(s) O10.013 [id number] Essential hypertension affecting in third trimester Problem 02/05/2021 12:00:00 AM EDT eCW1 ([facility]) O10.913 [id number] Pre-existing hyperte nsion affecting in third trimester Problem 01/16/2021 12:00:00 AM EDT eCW1 ([facility]) O16.3 Maternal hypertension Hypertension affecting pre gnancy in third trimester Problem 01/09/2021 12:00:00 AM EDT eCW1 ([facility]) O10.919 28014634 Chronic hypertension affecting Problem 12/05/2020 12:00:00 AM EDT eCW1 ([facility]) O10.012 80897629 Essential hypertension affecting in second trimester Problem 11/23/2020 12:00:00 AM EDT eCW1 ([facility]) E66.01 [id number] Morbid obesity due to excess calories Pro blem 10/01/2020 12:00:00 AM EST eCW1 ([facility]) Z68.43 [id number] BMI 50.0-59.9, adult Problem 10/01/2020 12:0 0:00 AM EST eCW1 ([facility]) O99.212 [id number] Obesity complicating in second trimester Problem 09/21/2020 12:00:00 AM EST eCW1 ([facility]) Z34.80 care Supervision of other normal P roblem 08/16/2020 12:00:00 AM EST eCW1 ([facility]) Surgeries/Procedures No Information Results ID Date Data Source 707 05/27/2021 12:00:00 AM EDT [facility] Name Value Range Interpretation Code Description Data Corrina rce(s) Supporting Document(s) SARS-CoV2 Rapid Antigen Positive [facility] This lab was ordered by [facility] and reported by [facility]. ID Date Data Source GROUP B STREP CULTURE 01/30/2021 12:00:00 AM EDT eCW1 ([facility]) Name Value Range Interpretation Code Description Data Corrina rce(s) Supporting Document(s) GROUP B STREP CULTURE eCW1 ([facility]) ID Date Data Source Glucose Challenge Test 1 Hour 12/11/2020 12:00:00 AM EDT eCW 1 ([facility]) Name Value Range Interpretation Code Description Data Corrina rce(s) Supporting Document(s) 113 LESS THAN 140 GLUCOSE CHALLENGE TEST 1 HOUR eCW1 ([facility]) ID Date Data Source CBC - Complete Blood Count 12/08/2020 12:00:00 AM EDT eCW1 ( [facility]) Name Value Range Interpretation Code Description Data Corrina rce(s) Supporting Document(s) 4.40 4.00-5.40 eCW1 ([facility]) 7.9 4.0-10.0 eCW1 ([facility]) 79.1 80.0-96.0 eCW1 ([facility]) 10.6 12.0-15.5 eCW1 ([facility]) 34.8 36.0-47.0 eCW1 ([facility]) 30.5 32.0-36.5 eCW1 ([facility]) 24.1 27.0-33.0 eCW1 ([facility]) 15.3 11.5-14.5 eCW1 ([facility]) 236 150-450 eCW1 ([facility]) ID Date Data Source Type and Screen (D Rh Antibody Screen) 12/08/2020 12:00:00 A M EDT eCW1 ([facility]) Name Value Range Interpretation Code Description Data Corrina rce(s) Supporting Document(s) O POSITIVE eCW1 ([facility]) NEGATIVE eCW1 ([facility]) ID Date Data Source WW[facility] OBS FOLLOW UP OR REPEAT 11/10/2020 12:00:00 AM EDT eCW1 ([facility]) Name Value Range Interpretation Code Description Data Corrina rce(s) Supporting Document(s) [facility] OBS FOLLOW UP OR REPEAT e CW1 ([facility]) ID Date Data Source Pre Eclampsia Profile 09/29/2020 12:00:00 AM EST eCW1 ([facility]) Name Value Range Interpretation Code Description Data Corrina rce(s) Supporting Document(s) 0.58 0.55-1.30 CREATININE FOR GFR eCW1 ([facility]) > 60.0 >60 GLOMERULAR FILTRATION RATE eCW 1 ([facility]) 8 7-37 AST/SGOT eCW1 ([facility]) 17 12-78 ALT/SGPT eCW1 ([facility]) 3.6 2.6-6.0 URIC ACID eCW1 ([facility]) 0.3 0.2-1.0 BILIRUBIN,TOTAL eCW1 ([facility]) 135 84-246 LDH LACTATE DEHYDROGENASE eCW1 ([facility]) ID Date Data Source URINE CULTURE 09/22/2020 12:00:00 AM EST eCW1 ([facility]) Name Value Range Interpretation Code Description Data Corrina rce(s) Supporting Document(s) URINE CULTURE eCW1 ([facility]) ID Date Data Source TOTAL PROTEIN,RANDOM URINE 09/22/2020 12:00:00 AM EST eCW1 ( [facility]) Name Value Range Interpretation Code Description Data Corrina rce(s) Supporting Document(s) 5.8 0.0-12.0 TOTAL PROTEIN,RANDOM URIN E eCW1 ([facility]) ID Date Data Source CREATININE,RANDOM URINE 09/22/2020 12:00:00 AM EST eCW1 ([facility]) Name Value Range Interpretation Code Description Data Corrina rce(s) Supporting Document(s) 116.0 CREATININE,RANDOM URINE eCW1 ( [facility]) Procedure Social History Code Duration Value Status Description Data Source(s ) Smoking 06/25/2021 12:00:00 AM EST Never Smoker completed Never S moker eCW1 ([facility]) Smoking 06/25/2021 12:00:00 AM EST Never Smoker completed Never S moker eCW1 ([facility]) Smoking 04/04/2021 12:00:00 AM EDT Never Smoker completed Never S moker eCW1 ([facility]) Smoking 04/04/2021 12:00:00 AM EDT Never Smoker completed Never S moker eCW1 ([facility]) Smoking 04/04/2021 12:00:00 AM EDT Never Smoker completed Never S moker eCW1 ([facility]) Smoking 02/21/2021 12:00:00 AM EDT Never Smoker completed Never S moker eCW1 ([facility]) Smoking 02/21/2021 12:00:00 AM EDT Never Smoker completed Never S moker eCW1 ([facility]) Smoking 01/30/2021 12:00:00 AM EDT Never Smoker completed Never S moker eCW1 ([facility]) Smoking 01/17/2021 12:00:00 AM EDT Never Smoker completed Never S moker eCW1 ([facility]) Smoking 01/15/2021 12:00:00 AM EDT Never Smoker completed Never S moker eCW1 ([facility]) Smoking 01/02/2021 12:00:00 AM EDT Never Smoker completed Never S moker eCW1 ([facility]) Smoking 12/15/2020 12:00:00 AM EDT Never Smoker completed Never S moker eCW1 ([facility]) Smoking 12/07/2020 12:00:00 AM EDT Never Smoker completed Never S moker eCW1 ([facility]) Smoking 12/07/2020 12:00:00 AM EDT Never Smoker completed Never S moker e[facility]1 [facility] [facility] Smoking 11/24/2020 12:00:00 AM EDT Never Smoker completed Never S moker eCW1 ([facility]) Smoking 10/27/2020 12:00:00 AM EDT Never Smoker completed Never S moker eCW1 ([facility]) Smoking 09/18/2020 12:00:00 AM EST Never Smoker completed Never S moker eCW1 ([facility]) Smoking 09/18/2020 12:00:00 AM EST Never Smoker completed Never S moker eCW1 ([facility]) Smoking 09/18/2020 12:00:00 AM EST Never Smoker completed Never S moker eCW1 ([facility]) Smoking 08/16/2020 12:00:00 AM EST Never Smoker completed Never S moker eCW1 ([facility]) Vital Signs ID Date Data Source UNK Name Value Range Interpretation Code Description Data Source(s) Body weight 292.2 [lb_av] 292.2 [lb_av] eCW1 ([facility]) Body height 62 [in_i] 62 [in_i] eCW1 ([facility]) Body mass index (BMI) [Ratio] 53.44 kg/m2 53.44 kg/m2 eCW1 ([facility]) Systolic blood pressure 130 mm[Hg] 130 mm[Hg] e CW1 ([facility]) Diastolic blood pressure 84 mm[Hg] 84 mm[Hg] eCW1 ([facility]) Systolic blood pressure 120 mm[Hg] 120 mm[Hg] e CW1 ([facility]) Diastolic blood pressure 78 mm[Hg] 78 mm[Hg] eCW1 ([facility]) Body weight 283.6 [lb_av] 283.6 [lb_av] eCW1 ([facility]) Body weight 128.64 kg 128.64 kg eCW1 ([facility]) Body height 62 [in_i] 62 [in_i] eCW1 ([facility]) Body mass index (BMI) [Ratio] 51.87 kg/m2 51.87 kg/m2 eCW1 ([facility]) Body weight 305.5 [lb_av] 305.5 [lb_av] eCW1 ([facility]) Body weight 138.57 kg 138.57 kg eCW1 ([facility]) Body height 62 [in_i] 62 [in_i] eCW1 ([facility]) Body mass index (BMI) [Ratio] 55.877 kg/m2 55.8 77 kg/m2 eCW1 ([facility]) Systolic blood pressure 140 mm[Hg] 140 mm[Hg] e CW1 ([facility]) Diastolic blood pressure 80 mm[Hg] 80 mm[Hg] eCW1 ([facility]) Body weight 303 [lb_av] 303 [lb_av] eCW1 ([facility]) Body height 62 [in_i] 62 [in_i] eCW1 ([facility]) Body mass index (BMI) [Ratio] 55.41 kg/m2 55.41 kg/m2 eCW1 ([facility]) Systolic blood pressure 126 mm[Hg] 126 mm[Hg] e CW1 ([facility]) Diastolic blood pressure 80 mm[Hg] 80 mm[Hg] eCW1 ([facility]) Body height 62 [in_i] 62 [in_i] eCW1 ([facility]) Systolic blood pressure 132 mm[Hg] 132 mm[Hg] e CW1 ([facility]) Diastolic blood pressure 72 mm[Hg] 72 mm[Hg] eCW1 ([facility]) Body weight 303 [lb_av] 303 [lb_av] eCW1 ([facility]) Body mass index (BMI) [Ratio] 55.419 kg/m2 55.4 19 kg/m2 eCW1 ([facility]) Body weight 303 [lb_av] 303 [lb_av] eCW1 ([facility]) Body height 62 [in_i] 62 [in_i] eCW1 ([facility]) Body mass index (BMI) [Ratio] 55.419 kg/m2 55.4 19 kg/m2 eCW1 ([facility]) Systolic blood pressure 136 mm[Hg] 136 mm[Hg] e CW1 ([facility]) Diastolic blood pressure 84 mm[Hg] 84 mm[Hg] eCW1 ([facility]) Body weight 305.6 [lb_av] 305.6 [lb_av] eCW1 ([facility]) Body height 62 [in_i] 62 [in_i] eCW1 ([facility]) Body mass index (BMI) [Ratio] 55.895 kg/m2 55.8 95 kg/m2 eCW1 ([facility]) Systolic blood pressure 134 mm[Hg] 134 mm[Hg] e CW1 ([facility]) Diastolic blood pressure 78 mm[Hg] 78 mm[Hg] eCW1 ([facility]) Body weight 305.8 [lb_av] 305.8 [lb_av] eCW1 ([facility]) Body weight 138.71 kg 138.71 kg eCW1 ([facility]) Body height 62 [in_i] 62 [in_i] eCW1 ([facility]) Body mass index (BMI) [Ratio] 55.932 kg/m2 55.9 32 kg/m2 eCW1 ([facility]) Systolic blood pressure 132 mm[Hg] 132 mm[Hg] e CW1 ([facility]) Diastolic blood pressure 76 mm[Hg] 76 mm[Hg] eCW1 ([facility]) Body weight 303.4 [lb_av] 303.4 [lb_av] eCW1 ([facility]) Body weight 137.62 kg 137.62 kg eCW1 ([facility]) Body height 62 [in_i] 62 [in_i] eCW1 ([facility]) Systolic blood pressure 160 mm[Hg] 160 mm[Hg] e CW1 ([facility]) Body mass index (BMI) [Ratio] 55.493 kg/m2 55.4 93 kg/m2 eCW1 ([facility]) Diastolic blood pressure 80 mm[Hg] 80 mm[Hg] eCW1 ([facility]) Body weight 303.8 [lb_av] 303.8 [lb_av] eCW1 ([facility]) Body height 62 [in_i] 62 [in_i] eCW1 ([facility]) Body mass index (BMI) [Ratio] 55.566 kg/m2 55.5 66 kg/m2 eCW1 ([facility]) Systolic blood pressure 132 mm[Hg] 132 mm[Hg] e CW1 ([facility]) Diastolic blood pressure 76 mm[Hg] 76 mm[Hg] eCW1 ([facility]) Body weight 301 [lb_av] 301 [lb_av] eCW1 ([facility]) Body height 62 [in_i] 62 [in_i] eCW1 ([facility]) Body mass index (BMI) [Ratio] 55.054 kg/m2 55.0 54 kg/m2 eCW1 ([facility]) Systolic blood pressure 140 mm[Hg] 140 mm[Hg] e CW1 ([facility]) Diastolic blood pressure 80 mm[Hg] 80 mm[Hg] eCW1 ([facility]) Body weight 296 [lb_av] 296 [lb_av] eCW1 ([facility]) Body height 62 [in_i] 62 [in_i] eCW1 ([facility]) Body mass index (BMI) [Ratio] 54.139 kg/m2 54.1 39 kg/m2 eCW1 ([facility]) Systolic blood pressure 126 mm[Hg] 126 mm[Hg] e CW1 ([facility]) Diastolic blood pressure 86 mm[Hg] 86 mm[Hg] eCW1 ([facility]) Patient Treatment Plan of Care Planned Activity Planned Date Details Description Data Source (s) ferrous gluconate 324 MG Oral Tablet 12/11/2020 12:00:00 AM EDT eCW1 ([facility]) Docusate Sodium 100 MG Oral Tablet 12/11/2020 12:00:00 AM EDT eCW1 ([facility]) ferrous gluconate 324 MG Oral Tablet 12/11/2020 12:00:00 AM EDT eCW1 ([facility]) Docusate Sodium 100 MG Oral Tablet 12/11/2020 12:00:00 AM EDT eCW1 ([facility]) ferrous gluconate 324 MG Oral Tablet 12/11/2020 12:00:00 AM EDT eCW1 ([facility]) Docusate Sodium 100 MG Oral Tablet 12/11/2020 12:00:00 AM EDT eCW1 ([facility]) Labetalol hydrochloride 100 MG Oral Tablet 11/24/2020 12:00:00 AM E DT eCW1 ([facility]) NITROFURANTOIN, MACROCRYSTALS 25 MG / Ni trofurantoin, Monohydrate 75 MG Oral Capsule [Macrobid] 09/24/2020 12:00:00 AM EST eC W1 ([facility]) NITROFURANTOIN, MACROCRYSTALS 25 MG / Ni trofurantoin, Monohydrate 75 MG Oral Capsule [Macrobid] 09/24/2020 12:00:00 AM EST eC W1 ([facility]) Aspirin 81 MG Delayed Release Oral Tablet 09/22/2020 12:00:00 AM ES T eCW1 ([facility]) Aspirin 81 MG Delayed Release Oral Tablet 09/22/2020 12:00:00 AM ES T eCW1 ([facility]) Aspirin 81 MG Delayed Release Oral Tablet 09/22/2020 12:00:00 AM ES T eCW1 ([facility])
--- NOTE | 2021-07-06 08:14 | REP ---
INDICATION: right calf pain, ankle injury 3 week ago COMPARISON: None. TECHNIQUE: Guzman scale and color Doppler evaluation using linear high frequency transducer. FINDINGS: Ultrasound examination of the right lower extremity deep venous structures from the common femoral vein through the popliteal vein demonstrates normal compressibility, flow and wave patterns in response to respiration and augmentation. Evaluation of the calf veins is limited. There is no evidence for deep venous thrombosis. Contralateral CFV is patent and normal. IMPRESSION: No evidence for deep venous thrombosis. <Electronically signed by Tyshawn Saucedo > 07/06/21 0810
[2021-07-06 08:40] VITALS: BP 165/80
== END 2021-07-06 08:40 | disposition home or self-care (01) ==
LOC: M ED 17:00
DX: R22.41 Localized swelling, mass and lump, right lower limb (principal); S93.401D Sprain of unspecified ligament of right ankle, subsequent encounter; X50.0XXD Overexertion from strenuous movement or load, subsequent encounter; Y92.9 Unspecified place or not applicable; Y99.9 Unspecified external cause status; Y93.9 Activity, unspecified; E28.2 Polycystic ovarian syndrome

== ENCOUNTER → 2021-10-09 | Outpatient (REF) | payer OTHER ==
[2021-10-09 18:33] LABS: HEMOGLOBIN A1c 5.2 %
== END ==
LOC: M LAB REF 17:27
PROVIDERS: ATTEND Surgery
DX: Z86.39 Personal history of other endocrine, nutritional and metabolic disease (principal)

== ENCOUNTER → 2021-10-30 | Outpatient (REF) | payer OTHER | LOC: M SFHCPLAZ 15:17 | PROVIDERS: ATTEND Family Medicine | DX: E03.8 Other specified hypothyroidism (principal); Z53.9 Procedure and treatment not carried out, unspecified reason ==

== ENCOUNTER → 2021-11-01 | Outpatient (REF) | payer OTHER ==
[2021-11-01 17:57] LABS: FREE T4 1.07 NG/DL (0.76-1.46)
[2021-11-01 17:58] LABS: THYROID PEROXIDASE ANTIBODY > 1300.0 U/ML (<60.0)
== END ==
LOC: M LAB REF 16:44
PROVIDERS: ATTEND Student in an Organized Health Care Education/Training Program
DX: E03.8 Other specified hypothyroidism (principal)

== ENCOUNTER → 2021-12-05 | Outpatient (REF) | payer OTHER ==
[2021-12-05 20:30] LABS: FREE T3 2.2 PG/ML (2.2-4.0); FREE T4 0.97 NG/DL (0.76-1.46); THYROID STIMULATING HORMONE 2.56 uIU/ML (0.358-3.740)
== END ==
LOC: M LAB REF 17:10
PROVIDERS: ATTEND Student in an Organized Health Care Education/Training Program
DX: E06.3 Autoimmune thyroiditis (principal)

== ENCOUNTER → 2022-03-19 | Outpatient (REF) | payer OTHER ==
[~2022-03-19] MED LIST changes: -LABE100T4 PO; +LABE100T6 PO
[2022-03-19 18:14] LABS: CHOLESTEROL RISK RATIO 5.58 (<5); FREE T4 0.99 NG/DL (0.76-1.46); THYROID STIMULATING HORMONE 3.03 uIU/ML (0.358-3.740)
[2022-03-19 18:58] LABS: TOTAL 25(OH) VITAMIN D 15.5 NG/ML (30.0-100.0)
== END ==
LOC: M LAB REF 16:59
PROVIDERS: ATTEND Student in an Organized Health Care Education/Training Program
DX: E03.8 Other specified hypothyroidism (principal); E55.9 Vitamin D deficiency, unspecified; E78.5 Hyperlipidemia, unspecified

== ENCOUNTER → 2022-03-20 | Outpatient (REF) | payer OTHER | LOC: M SFHCPLAZ 10:55 | PROVIDERS: ATTEND Family Medicine | DX: E28.2 Polycystic ovarian syndrome (principal) ==

== ENCOUNTER → 2022-11-14 | Outpatient (REF) | payer OTHER | LOC: M SFHCPLAZ 15:36 | PROVIDERS: ATTEND Internal Medicine Hematology | DX: Z53.9 Procedure and treatment not carried out, unspecified reason (principal) ==

== ENCOUNTER → 2022-11-15 | Outpatient (REF) | payer OTHER ==
[2022-11-15 18:55] LABS: THYROID STIMULATING HORMONE 1.864 uIU/ML (0.55-4.78); TOTAL 25(OH) VITAMIN D 21.4 NG/ML (20.0-100.0)
[2022-11-15 18:56] LABS: FREE T4 1.1 NG/DL (0.89-1.76)
== END ==
LOC: M SFHCPLAZ 17:05
PROVIDERS: ATTEND Student in an Organized Health Care Education/Training Program
DX: E06.9 Thyroiditis, unspecified (principal); E55.9 Vitamin D deficiency, unspecified

== ENCOUNTER 2023-07-28 16:08 | Emergency (ER) | payer OTHER ==
[~2023-07-28] VITALS: Ht 157.5 cm; Wt 109.6 kg
[2023-07-28] MEDS ORDERED: ACET-683 PO (16:14)
[2023-07-28] MEDS ORDERED: ACETAMINOPHEN TAB 650MG DOSE (2X325MG) PO ONE (17:05)
[2023-07-28] MEDS ORDERED: BENZONATATE 100MG CAPSULE PO ONE (17:25)
[2023-07-28 17:28] LABS: RSV AMPLIFICATION NEGATIVE (NEGATIVE)
[2023-07-28] MEDS ORDERED: IBUPROFEN 800 MG TAB PO ONE (19:05)
[2023-07-28 20:23] VITALS: BP 134/75; TEMP 100.6; O2SAT 98
[2023-07-28] MEDS ORDERED: BENZ200C70 PO (20:42)
== END 2023-07-28 21:14 | disposition home or self-care (01) ==
LOC: M ED 16:08
DX: J09.X9 Influenza due to identified novel influenza A virus with other manifestations (principal); I10 Essential (primary) hypertension; E28.2 Polycystic ovarian syndrome; Z79.1 Long term (current) use of non-steroidal anti-inflammatories (NSAID); Z79.811 Long term (current) use of aromatase inhibitors

== ENCOUNTER 2024-05-06 09:10 | Emergency (ER) | payer OTHER ==
[~2024-05-06] VITALS: Ht 157.5 cm; Wt 111.4 kg
[~2024-05-06 09:10] MED LIST changes: +ACET-683 PO; +BENZ200C70 PO
[2024-05-06 09:12] VITALS: TEMP 98.7
[2024-05-06] MEDS ORDERED: CEPH500T (09:21)
[2024-05-06 10:44] LABS: BASO % 0.2 % (0.0-1.0); EOS % 0.4 % (0.0-3.0); HEMATOCRIT 43.5 % (36.0-47.0); LYMPH # 0.8 10^3/uL (1.5-5.0); LYMPH % 7.9 % (24.0-44.0); MEAN CORPUSCULAR HEMOGLOBIN 27.1 pg (27.0-33.0); MEAN CORPUSCULAR HGB CONC 32.2 g/dl (32.0-36.5); MEAN CORPUSCULAR VOLUME 84.1 fl (80.0-96.0); MONO # 0.6 10^3/uL (0.0-0.8); MONO % 5.7 % (2.0-8.0); NEUTROPHILS % 85.2 % (36.0-66.0); PLATELET COUNT, AUTOMATED 186 10^3/uL (150-450); RED BLOOD COUNT 5.17 10^6/uL (4.00-5.40); WHITE BLOOD COUNT 10.6 10^3/uL (4.0-10.0)
[2024-05-06 11:17] LABS: ALBUMIN 4.2 G/DL (3.2-5.2); ALKALINE PHOSPHATASE 61 U/L (46-116); ALT/SGPT 22 U/L (7.0-40); AST/SGOT 20 U/L (<34); BILIRUBIN,DIRECT 0.3 MG/DL (<0.4); BLOOD UREA NITROGEN 13 MG/DL (9-23); CALCIUM LEVEL 9.7 MG/DL (8.5-10.1); CARBON DIOXIDE LEVEL 26 MMOL/L (20-31); CHLORIDE LEVEL 110 MMOL/L (98-107); CREATININE FOR GFR 0.79 MG/DL (0.55-1.30); GLOMERULAR FILTRATION RATE > 60.0 (>60); GLUCOSE, FASTING 83 MG/DL (60-100); POTASSIUM SERUM 4.2 MMOL/L (3.5-5.1); SODIUM LEVEL 140 MMOL/L (136-145); TOTAL PROTEIN 7.7 G/DL (5.7-8.2)
[2024-05-06 12:48] LABS: MAGNESIUM LEVEL 1.8 MG/DL (1.8-2.4)
[2024-05-06 13:45] VITALS: BP 129/81; O2SAT 99
== END 2024-05-06 13:59 | disposition home or self-care (01) ==
LOC: M ED 09:10
DX: R06.02 Shortness of breath (principal); R00.2 Palpitations; I10 Essential (primary) hypertension; E28.2 Polycystic ovarian syndrome; E03.9 Hypothyroidism, unspecified; Z91.010 Allergy to peanuts; Z79.1 Long term (current) use of non-steroidal anti-inflammatories (NSAID); Z79.2 Long term (current) use of antibiotics

== ENCOUNTER → 2024-06-07 | Outpatient (REF) | payer OTHER ==
[~2024-06-07] MED LIST changes: +CEPH500T
== END ==
LOC: M LAB REF 12:30
PROVIDERS: ATTEND Pediatrics
DX: R50.9 Fever, unspecified (principal)

== ENCOUNTER → 2024-08-05 | Outpatient (REF) | payer OTHER | LOC: M LAB REF 12:23 | PROVIDERS: ATTEND Pediatrics | DX: R05.9 Cough, unspecified (principal) ==

== ENCOUNTER → 2025-02-09 | Outpatient (CLI) | payer OTHER ==
[2025-02-09 10:40] LABS: BASO # 0.0 10^3/uL (0.0-0.2); BASO % 0.4 % (0.0-1.0); EOS # 0.1 10^3/uL (0.0-0.5); EOS % 1.7 % (0.0-3.0); LYMPH # 1.4 10^3/uL (1.5-5.0); LYMPH % 31.2 % (24.0-44.0); MONO # 0.6 10^3/uL (0.0-0.8); MONO % 12.6 % (2.0-8.0); NEUTROPHILS # 2.5 10^3/uL (1.5-8.5); NEUTROPHILS % 53.7 % (36.0-66.0); PLATELET COUNT, AUTOMATED 204 10^3/uL (150-450)
[2025-02-09 11:07] LABS: CALCIUM LEVEL 9.6 MG/DL (8.5-10.1); CARBON DIOXIDE LEVEL 28 MMOL/L (20-31); CHLORIDE LEVEL 107 MMOL/L (98-107); CHOLESTEROL LEVEL 175 MG/DL (<200); CHOLESTEROL RISK RATIO 5.08 (<5); CREATININE FOR GFR 0.86 MG/DL (0.55-1.30); GLOMERULAR FILTRATION RATE > 90.0 (>60); LDL CHOLESTEROL 119.4 MG/DL (<100); NON-HDL-C 140.6 MG/DL; POTASSIUM SERUM 4.6 MMOL/L (3.5-5.1); SODIUM LEVEL 142 MMOL/L (136-145); TRIGLYCERIDES LEVEL 106 MG/DL (<150)
[2025-02-09 11:08] LABS: FREE T4 1.28 NG/DL (0.89-1.76)
[2025-02-09 11:09] LABS: TOTAL 25(OH) VITAMIN D 27.4 NG/ML (20.0-100.0)
[2025-02-09 12:52] LABS: ESTIMATED AVERAGE GLUCOSE 97.0 MG/DL (60-110)
[2025-02-16 08:57] LABS: THYROID PEROXIDASE ANTIBODY 446 U/ML (<60.0)
== END ==
LOC: M PLALAB 08:41
PROVIDERS: ATTEND Student in an Organized Health Care Education/Training Program
DX: Z00.00 Encounter for general adult medical examination without abnormal findings (principal)

== ENCOUNTER → 2025-02-16 | Outpatient (REF) | payer OTHER | LOC: M SFHCPLAZ 09:24 | PROVIDERS: ATTEND Student in an Organized Health Care Education/Training Program | DX: Z01.419 Encounter for gynecological examination (general) (routine) without abnormal findings (principal) ==

== ENCOUNTER → 2025-02-21 | Outpatient (CLI) | payer OTHER ==
[2025-02-21 18:51] LABS: IRON (FE) 61.0 UG/DL (50-170); PERCENT SATURATION 17.3 % (13.2-45.0)
[2025-02-21 18:54] LABS: VITAMIN B12 LEVEL 489.0 PG/ML (211-911)
[2025-02-21 18:59] LABS: THYROID PEROXIDASE ANTIBODY 504.0 U/ML (<60.0)
== END ==
LOC: M LAB 17:54
PROVIDERS: ATTEND Student in an Organized Health Care Education/Training Program
DX: E06.3 Autoimmune thyroiditis (principal)